=== PATIENT | male | born 1965 | race Hispanic/Latino ===

== ENCOUNTER 2018-06-15 12:25 | Emergency (ER) | payer OTHER ==
--- OUTSIDE RECORDS SUMMARY | 2018-06-15 14:10 | XMS REPORT | Clinical Summary ---
:1965 Author Organization [facility] Address [address] [place] [id number] Care Team Providers Name Role Phone Balaji Chau MD Primary Care Provider Allergies No Known Allergies Medications Not on file Active Problems Not on file Encounters Date Type Specialty Care Team Description 08/20/2017 Hospital Encounter Radiology William Lombardo Migraine-cluster MD Misael headache syndrome 08/14/2017 Lab Lab William Lombardo Other specified MD Misael abnormal findings of blood chemistry (Primary Dx) 08/14/2017 Transcribe Orders Access William Lombardo Migraine-cluster MD Misael headache syndrome (Primary Dx) 08/03/2017 Hospital Encounter Radiology William Lombardo Shortness of breath MD Misael 08/03/2017 Hospital Encounter Procedural William Lombardo Shortness of breath Cardiology MD Misael 07/24/2017 Transcribe Orders Access William Lombardo Shortness of breath MD Misael (Primary Dx) 07/23/2017 Hospital Encounter Radiology William Lombardo Bronchiectasis without complication; MD Misael Idiopathic fibrosing alveolitis, subacute form 07/23/2017 Transcribe Orders William Garcia Bronchiectasis without complication (Primary Dx); MD Misael Idiopathic fibrosing alveolitis, subacute form after 06/14/2017 Social History Tobacco Use Types Packs/Day Years Used Date Never Assessed Sex Assigned at Date Recorded Not on file Job Start Date Occupation Industry Not on file Not on file Not on file Travel History Travel Start Travel End No recent travel history available. Last Filed Vital Signs Vital Sign Reading Time Taken Blood Pressure - - Pulse - - Temperature - - Respiratory Rate - - Oxygen Saturation - - Inhaled Oxygen Concentration - - Weight 72.6 kg (160 lb) 08/20/2017 9:58 AM PUBLIC HEALTH ASSISTANT Height 162.6 cm (5' 4") 08/20/2017 9:58 AM PUBLIC HEALTH ASSISTANT Body Mass Index 27.46 08/20/2017 9:58 AM PUBLIC HEALTH ASSISTANT Plan of Treatment Health Maintenance Due Date Last Done Comments MMR VACCINES (1 of 1 - Standard 09/16/1964 series) VARICELLA VACCINES (1 of 2 - 2-dose 09/16/1976 adolescent series) COLON CANCER SCREENING 09/16/2013 SHINGRIX VACCINE (1 of 2) 09/16/2013 INFLUENZA VACCINE 02/17/2018 HEPATITIS B VACCINES Aged Out No longer eligible based on patient's age to complete this topic IPV VACCINES Aged Out No longer eligible based on patient's age to complete this topic MENINGOCOCCAL VACCINE Aged Out No longer eligible based on patient's age to complete this topic Procedures Procedure Name Priority Date/Time Associated Diagnosis Comments MRI BRAIN W WO Routine 08/20/2017 10:33 Migraine-cluster Results for this CONTRAST AM PUBLIC HEALTH ASSISTANT headache syndrome procedure are in the results section. ZZESTIMATED GFR Routine 08/14/2017 11:53 Results for this AM PUBLIC HEALTH ASSISTANT procedure are in the results section. BASIC METABOLIC PANEL Routine 08/14/2017 11:53 Other specified Results for this AM PUBLIC HEALTH ASSISTANT abnormal findings of procedure are in blood chemistry the results section. NM LUNG VENTILATION Routine 08/03/2017 9:45 Shortness of breath Results for this PERFUSION AM PUBLIC HEALTH ASSISTANT procedure are in the results section. ECHOCARDIOGRAM 2D Routine 08/03/2017 9:15 Shortness of breath Results for this COMPLETE W MMODE AM PUBLIC HEALTH ASSISTANT procedure are in SPECTRAL COLOR DOPPLER the results (29840) section. CT CHEST WO CONTRAST Routine 07/23/2017 2:17 Bronchiectasis Results for this PM PUBLIC HEALTH ASSISTANT without complication procedure are in Idiopathic fibrosing the results alveolitis, subacute section. form after 06/14/2017 Results MRI Brain W Wo Contrast (08/20/2017 10:33 AM PUBLIC HEALTH ASSISTANT) Narrative Performed At EXAMINATION:MRI BRAIN W WO CONTRAST [facility] CLINICAL HISTORY:G44.009 Cluster headache syndromeunspecifiednot intractable, AREVALO COMPARISON:None. TECHNIQUE: Multiplanar MRI imaging with and without IV Gadolinium was performed. FINDINGS: There are scattered punctate periventricular and subcortical white matter nonspecific T2 hyperintensities in the frontoparietal region bilaterally likely related to microvascular chronic changes . There is an encephalomalacia with gliosis related to an old insult in the frontal parasagittal supraorbital region likely related to old trauma. There is no evidence of acute infarction, hemorrhage, mass lesion, or midline shift. Ventricles, sulci, and cisterns are age-appropriate in size and configuration. There is no extra-axial fluid collecti on. Flow voids of the major intracranial vessels are intact. The postcontrast images demonstrates no evidence of abnormal brain parenchymal enhancement or leptomeningeal disease. There is a chronic mucoperiosteal infiltrate changes in the maxillary sinuses bilaterally with no air-fluid levels. Bones, orbits, and soft tissues are unremarkable. IMPRESSION: No acute intracranial abnormality. Chronic changes as described. 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 [id number] Procedure Note Interface, Radiology Results - 08/20/2017 3:04 PM PUBLIC HEALTH ASSISTANT EXAMINATION: MRI BRAIN W WO CONTRAST CLINICAL HISTORY: G44.009 Cluster headache syndrome unspecified not intractable, AREVALO COMPARISON: None. TECHNIQUE: Multiplanar MRI imaging with and without IV Gadolinium was performed. FINDINGS: There are scattered punctate periventricular and subcortical white matter nonspecific T2 hyperintensities in the frontoparietal region bilaterally likely related to microvascular chronic changes. There is an encephalomalacia with gliosis related to an old insult in the frontal parasagittal supraorbital region likely related to old trauma. There is no evidence of acute infarction, hemorrhage, mass lesion, or midline shift. Ventricles, sulci, and cisterns are age-appropriate in size and configuration. There is no extra-axial fluid collection. Flow voids of the major intracranial vessels are intact. The postcontrast images demonstrates no evidence of abnormal brain parenchymal enhancement or leptomeningeal disease. There is a chronic mucoperiosteal infiltrate changes in the maxillary sinuses bilaterally with no air-fluid levels. Bones, orbits, and soft tissues are unremarkable. IMPRESSION: No acute intracranial abnormality. Chronic changes as described. 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 [id number] Performing Organization Address City/State/Zipcode Phone Number [facility] [address] [place] [address] Estimated GFR (08/14/2017 11:53 AM PUBLIC HEALTH ASSISTANT) GFR Non Af Amer 78 mL/min/1.73 m2 [facility]OM[facility] GFR Af Amer >90 mL/min/1.73 m2 [facility] DEPART[facility] OF Comment: PATHOLOGY AND [facility] Chronic kidney disease: <60 mL/min/1.73m2 MEDICINE Kidney failure: <15 mL/min/1.73m2 The estimated GFR is calculated from the IDMS-traceable Modification of Diet in Renal Disease Equation. The accuracy of the calculation is poor when the creatinine is normal. Calculated values >90 mL/min/1.73m2 are not reported. This equation has not been validated in children (<18 years), women, the elderly (>70 years), or ethnic groups other than Caucasians and Americans. Specimen Plasma specimen Performing Organization Address City/[facility] Phone Number [facility] OF PATHOLOGY AND [address] [place] [address] [facility] Basic metabolic panel (08/14/2017 11:53 AM PUBLIC HEALTH ASSISTANT) Sodium 142 135 - 148 mEq/L [facility]OM[facility]IC[facility] Potassium 4.4 3.5 - 5.0 mEq/L [facility]OM[facility]IC[facility] Chloride 101 98 - 112 mEq/L [facility]OLOGY [facility] GENOMIC MEDIC[facility] CO2 27 24 - 31 mEq/L [facility]Y [facility] GENOM[facility]IC[facility] Anion gap 14 7 - 15 mEq/L [facility] OF PATHOLOGY Comment: [facility] Starting from October , anion gap calculation no longer incorporates potassium. Please note the change. BUN 18 6 - 20 mg/dL [facility] Creatinine 1.0 0.7 - 1.2 mg/dL [facility]OLOGY [facility] GENOMIC [facility]IC[facility] Glucose 85 65 - 99 mg/dL [facility] PATHOLOGY [facility] GENOMIC [facility]ICINE Calcium 9.6 8.3 - 10.2 mg/dL [facility] OF PATHOLOGY AND GENOMIC [facility] Specimen Plasma specimen Performing Organization Address City/[facility] Centercoid Phone Number [facility] PATHOLOGY AND [address] [place] [address] [facility] Lung Ventilation Perfusion (08/03/2017 9:45 AM PUBLIC HEALTH ASSISTANT) Narrative Performed At CLINICAL HISTORY: R06.02 Shortness of breath, r06.02 [facility] TECHNIQUE: The patient breathed 15-20 mCi of xenon-133 gas through a closed ventilation system while dynamic imaging of the lungs was performed in the posterior and anterior projections. The patient was then injected with 5 mCi of [id number] intravenously, followed by imaging of the lungs in anterior, posterior, and oblique projections. FINDINGS: Mild air trapping in the lung bases on ventilation. Normal perfusion bilaterally. IMPRESSION: Normal perfusion lung scan. [id number] Procedure Note Interface, Radiology Results Incoming - 08/03/2017 10:07 AM PUBLIC HEALTH ASSISTANT CLINICAL HISTORY: R06.02 Shortness of breath, r06.02 TECHNIQUE: The patient breathed 15-20 mCi of xenon-133 gas through a closed ventilation system while dynamic imaging of the lungs was performed in the posterior and anterior projections. The patient was then injected with 5 mCi of [id number] intravenously, followed by imaging of the lungs in anterior, posterior, and oblique projections. FINDINGS: Mild air trapping in the lung bases on ventilation. Normal perfusion bilaterally. IMPRESSION: Normal perfusion lung scan. [id number] Performing Organization Address City/State/Zipcode Phone Number [facility] [address] [place] [address] Echocardiogram complete w contrast and 3D if needed (08/03/2017 9:15 AM PUBLIC HEALTH ASSISTANT) Narrative Performed At [facility] Echocardiography Report [address] [place] [address] Pat.Name:CANDIS SANTOS Pat.ID:[id number] .Date: 08/03/2017 Refer.MD:WILLIAM LOMBARDO MD Exam Time: 8:18:00 AMStudy Type:Routine Echo Height:64inWeight: 160lb BSA: 1.78 m2 DOBAge:1965,51Y Sex: MALEBP: 155/102 HR:80 bpmSonogrphr: KRISTA Amador Pat. Stat.:OutpatientStudy Status:Final Echo Event ID:[id number] Order ID:[id number] Reason for Study:Shortness of breath Procedures:2D Echo, Colorflow Doppler Race:C SUMMARY: LV EF is normal. Estimated EF is 60-64%. RV systolic function is normal. FINDINGS: LV: LV size is normal. LV EF is normal. Overall wall motion is normal.Estimated EF is 60-64%. RV: RV size is normal. RV systolic function is normal. LA: LA size is normal. RA: RA size is normal. AO: Aortic root diameter is normal. MARLEN: No pericardial effusion. AV: No structural AV abnormalities noted. MV: No structural MV abnormalities noted. PV: No structural PV abnormalities noted. TV: No structural TV abnormalities noted. Goldstein: Normal diastolic function. Other:Insufficient TR jet to estimate PA systolic pressure. MEASUREMENTS: 2D Parasternal Long [place] LVOT 2.1 cmLA Ds 3.2 cm LVIDd4.1 cmIndex 2.3 cm/m Ao An2.2 cm LVIDs2.3 cmAo Rtd 2.9 cm Index1.6 cm/m LV%fs 43.9 % LV Ppnf883.1 g(122-174) IVSd 1 cmRWT 0.5 LVPWd1 cm LA Sng Plane LA Area 13.9 cm2(8.8-23.4) LA Vol32.5 ml Index18.3 ml/m LA LngAx 4.9 cm Signed 08/04/2017 01:27 PM Camilla Travis M.D. Procedure Note Interface, Radiology Results In - 08/04/2017 1:28 PM PUBLIC HEALTH ASSISTANT Echocardiography Report [id number] [address] Pat.Name: CANDIS SANTOS.ID: [id number] .Date: 08/03/2017 Refer.MD: WILLIAM LOMBARDO MD Exam Time: 8:18:00 AM Study Type:Routine Echo Height: 64in Weight: 160lb BSA: 1.78 m2 Age: 2 1965,51Y Sex: MALE BP: 155/102 HR: 80 bpm Sonogrphr: KRISTA Amador Pat. Stat.:Outpatient Study Status:Final Echo Event ID:[id number] Order ID: [id number] Reason for Study:Shortness of breath Procedures:2D Echo, Colorflow Doppler Race: C SUMMARY: LV EF is normal. Estimated EF is 60-64%. RV systolic function is normal. FINDINGS: LV: LV size is normal. LV EF is normal. Overall wall motion is normal. Estimated EF is 60-64%. RV: RV size is normal. RV systolic function is normal. LA: LA size is normal. RA: RA size is normal. AO: Aortic root diameter is normal. MARLEN: No pericardial effusion. AV: No structural AV abnormalities noted. MV: No structural MV abnormalities noted. PV: No structural PV abnormalities noted. TV: No structural TV abnormalities noted. Goldstein: Normal diastolic function. Other: Insufficient TR jet to estimate PA systolic pressure. MEASUREMENTS: 2D Parasternal Long [place] LVOT 2.1 cm LA Ds 3.2 cm LVIDd 4.1 cm Index 2.3 cm/m Ao An 2.2 cm LVIDs 2.3 cm Ao Rtd 2.9 cm Index 1.6 cm/m LV%fs 43.9 % LV Mass 132.1 g (122-174) IVSd 1 cm RWT 0.5 LVPWd 1 cm LA Sng Plane LA Area 13.9 cm2 (8.8-23.4) LA Vol 32.5 ml Index 18.3 ml/m LA LngAx 4.9 cm Signed 08/04/2017 01:27 PM Camilla Travis M.D. Performing Organization Address City/State/Zipcode Phone Number [facility] [address] [place] [address] CT Chest Wo Contrast (07/23/2017 2:17 PM PUBLIC HEALTH ASSISTANT) Narrative Performed At EXAMINATION: [facility] CT CHEST WO CONTRAST CLINICAL HISTORY: J47.9 Bronchiectasisuncomplicated, J84.112 Idiopathic pulmonary fibrosis, j84.112 TECHNIQUE: Multiple axial images of the chest were obtained without intravenous contrast. The lack of intravenous contrast reduces the sensitivity of detecting solid organ disease and evaluating vasculature. Sagittal and coronal computerized reformatted images were also obtained. CT imaging was performed with iterative reconstruction techniques and/or automated exposure control to reduce radiation dose. COMPARISON: None. IMPRESSION: 1.There is a tiny calcified granuloma in the right upper lobe. Lungs are otherwise clear. There is no evidence of interstitial fibrosis. 2.The airways are patent and normal in caliber. 3.There is no pleural or pericardial effusion. 4.No thoracic lymphadenopathy is seen. 5.The heart size is normal. 6.There are couple of tiny bilateral intrarenal nonobstructing calculi and there is a 13 mm cyst in the left kidney. 7.No significant skeletal abnormality is seen. [id number] Procedure Note Interface, Radiology Results Incoming - 07/23/2017 2:34 PM PUBLIC HEALTH ASSISTANT EXAMINATION: CT CHEST WO CONTRAST CLINICAL HISTORY: J47.9 Bronchiectasis uncomplicated, J84.112 Idiopathic pulmonary fibrosis, j84.112 TECHNIQUE: Multiple axial images of the chest were obtained without intravenous contrast. The lack of intravenous contrast reduces the sensitivity of detecting solid organ disease and evaluating vasculature. Sagittal and coronal computerized reformatted images were also obtained. CT imaging was performed with iterative reconstruction techniques and/or automated exposure control to reduce radiation dose. COMPARISON: None. IMPRESSION: 1. There is a tiny calcified granuloma in the right upper lobe. Lungs are otherwise clear. There is no evidence of interstitial fibrosis. 2. The airways are patent and normal in caliber. 3. There is no pleural or pericardial effusion. 4. No thoracic lymphadenopathy is seen. 5. The heart size is normal. 6. There are couple of tiny bilateral intrarenal nonobstructing calculi and there is a 13 mm cyst in the left kidney. 7. No significant skeletal abnormality is seen. [facility]-[id number] Performing Organization Address City/State/Zipcode Phone Number [facility] [address] [place] [address] after 06/14/2017 Advance Directives Patient has advance care planning documents on file. For more information, please contact:[facility] [place] [id number]
--- NOTE | 2018-06-15 15:31 | ER ---
Nurse's Notes [facility] Name: Karli Garcia Age: 52 yrs Sex: Male : 1965 Arrival Date: 06/15/2018 Time: 12:29 Bed 11 Private MD: Balaji Chau E Diagnosis: Low back pain Presentation: 06/15 13:04 Presenting complaint: Patient states: Back pain that started today. States that he has aj1 had back pain for a long time, he has a steroid shot 3 weeks ago, but now the pain is worse than it has been previously. Transition of care: patient was not received from another setting of care. Onset of symptoms was June 15, 2018. Risk Assessment: Do you want to hurt yourself or someone else? Patient reports no desire to harm self or others. Initial Sepsis Screen: Does the patient meet any 2 criteria? No. Patient's initial sepsis screen is negative. Does the patient have a suspected source of infection? No. Patient's initial sepsis screen is negative. Care prior to arrival: None. 13:04 Method Of Arrival: Ambulatory aj 13:04 Acuity: ANTHONY 4 aj1 Triage Assessment: 13:05 General: Appears in no apparent distress. uncomfortable, Behavior is calm, cooperative, aj1 appropriate for age. Pain: Complains of pain in back Pain currently is 10 out of 10 on a pain scale. Neuro: Level of Consciousness is awake, alert, obeys commands. Cardiovascular: Patient's skin is warm and dry. Respiratory: Airway is patent Respiratory effort is even, unlabored, Respiratory pattern is regular, symmetrical. Musculoskeletal: Range of motion: intact in all extremities. Historical: - Allergies: 13:05 No Known Allergies; aj1 - PMHx: 13:05 Hypertension; aj1 - Immunization history:: Flu vaccine status is unknown. - Social history:: Smoking status: unknown. - Ebola Screening: : No symptoms or risks identified at this time. Screenin:51 Abuse screen: Denies threats or abuse. Denies injuries from another. Nutritional mg2 screening: No deficits noted. Tuberculosis screening: No symptoms or risk factors identified. Fall Risk None identified. Assessment: 15:39 Reassessment: No changes from previously documented assessment. Neuro: No deficits mg2 noted. Musculoskeletal: Reports pain in back. Vital Signs: 13:05 BP 144 / 97; Pulse 72; Resp 18; Temp 98.2; Pulse Ox 99% on R/A; Weight 70.31 kg (R); aj1 Height 5 ft. 4 in. (162.56 cm) (R); Pain 10/10; 14:57 BP 159 / 101; Pulse 89; Resp 18; Pulse Ox 100% on R/A; Pain 10/10; mg2 13:05 Body Mass Index 26.61 (70.31 kg, 162.56 cm) aj1 ED Course: 12:29 Patient arrived in ED. sb2 12:29 Balaji Chau MD is Private Physician. sb2 13:05 Triage completed. aj1 13:05 Arm band placed on Patient placed in waiting room, Patient notified of wait time. aj 14:08 Te Matt PA is PHCP. [facility] 14:08 Tee Saez MD is Attending Physician. [facility] 14:51 Ezequiel Smith, KENZIE is Primary Nurse. mg2 14:51 No provider procedures requiring assistance completed. Patient did not have IV access mg2 during this emergency room visit. 15:30 Moody Bernstein MD is Referral Physician. [facility] 15:39 Patient has correct armband on for positive identification. mg2 Administered Medications: No medications were administered Outcome: 15:30 Discharge ordered by MD. [facility] 15:40 Discharged to home ambulatory. mg2 15:40 Condition: stable 15:40 Discharge instructions given to patient, Instructed on discharge instructions, follow up and referral plans. medication usage, Demonstrated understanding of instructions, follow-up care, medications, Prescriptions given X 2. 15:40 Patient left the ED. mg2 Signatures: Tracy Oreilly, RN RN aj1 Te Matt PA PA jmm Billeau, Sheri sb2 Ezequiel Smith, KENZIE RN mg2
--- NOTE | 2018-06-15 15:31 | EDPHYS ---
Physician Documentation [facility] Name: Karli Garcia Age: 52 yrs Sex: Male : 1965 Arrival Date: 06/15/2018 Time: 12:29 Bed 11 Private MD: Balaji Chau E ED Physician Tee Saez HPI: 06/15 15:05 This 52 yrs old Male presents to ER via Ambulatory with complaints of Back jmm Pain. 15:05 The patient presents with pain that is acute, with no known mechanism of injury. The jmm symptoms are located in the thoracic area and lumbar area. Onset: The symptoms/episode began/occurred this morning. The pain does not radiate. Associated signs and symptoms: Pertinent negatives: abdominal pain, dysuria, fever, incontinence, nausea, numbness, urinary retention, weakness. This is a 52 year old male with a history of htn that presents to the ED with lumbar and thoracic back pain beginning this morning. Patient states having a steroid injection in his lumbar spine approx 2 to 3 weeks ago with no pain until today. Patient denies IV drug use, denies incontinence, denies leg weakness, denies urinary retention. . Historical: - Allergies: 13:05 No Known Allergies; aj1 - PMHx: 13:05 Hypertension; aj1 - Immunization history:: Flu vaccine status is unknown. - Social history:: Smoking status: unknown. - Ebola Screening: : No symptoms or risks identified at this time. ROS: 15:05 Constitutional: Negative for fever, chills, and weight loss, Eyes: Negative for injury, jmm pain, redness, and discharge, Cardiovascular: Negative for chest pain, palpitations, and edema, Respiratory: Negative for shortness of breath, cough, wheezing, and pleuritic chest pain. 15:05 Back: Positive for pain with movement. 15:05 Neuro: Negative for gait disturbance, weakness. 15:05 All other systems are negative. Exam: 15:05 Head/Face: atraumatic. Eyes: EOMI, no conjunctival erythema appreciated ENT: Moist jmm Mucus Membranes Neck: Trachea midline, Supple Chest/axilla: Normal chest wall appearance and motion. Cardiovascular: Regular rate and rhythm. No edema appreciated Respiratory: Normal respirations, no respiratory distress appreciated Abdomen/GI: Non distended, soft 15:05 Constitutional: The patient appears in no acute distress, alert, awake. 15:05 Back: paraspinal thoracic back pain is noted on palpation, FROM appreciated. Midline lumbar tenderness is noted, no erythema appreciated, no mass is palpated. 15:05 Neuro: Orientation: is normal, Mentation: is normal, Memory: is normal, Motor: is normal, extensor hallucis longus intact bilaterally, no saddle paresthesias, normal gait appreciated. 15:05 Psych: Behavior/mood is pleasant, cooperative. Vital Signs: 13:05 BP 144 / 97; Pulse 72; Resp 18; Temp 98.2; Pulse Ox 99% on R/A; Weight 70.31 kg (R); aj1 Height 5 ft. 4 in. (162.56 cm) (R); Pain 10/10; 14:57 BP 159 / 101; Pulse 89; Resp 18; Pulse Ox 100% on R/A; Pain 10/10; mg2 13:05 Body Mass Index 26.61 (70.31 kg, 162.56 cm) aj1 MDM: 15:05 Patient medically screened. [facility] 15:29 Data reviewed: vital signs, nurses notes. Counseling: I had a detailed discussion with [facility] the patient and/or guardian regarding: the historical points, exam findings, and any diagnostic results supporting the discharge/admit diagnosis, the need for outpatient follow up, to return to the emergency department if symptoms worsen or persist or if there are any questions or concerns that arise at home. 15:29 Data interpreted: Pulse oximetry: on room air is 100 %. ED course: PE findings are not [facility] concerning for cord compression. Patient is afebrile and non toxic in appearance, i do not suspect spinal abscess. Symptoms may be due to progressively worsening DDD. Patient is scheduled to see neuro surgery on Thursday. Patient is otherwise given return precautions. Patient understood. . Administered Medications: No medications were administered Disposition: 18:31 Co-signature as Attending Physician, Tee Saez MD. rn Disposition: 06/15/18 15:30 Discharged to Home. Impression: Low back pain. - Condition is Stable. - Discharge Instructions: Back Pain, Adult. - Prescriptions for Prednisone 20 mg Oral Tablet - take 3 tablet by ORAL route once daily for 5 days; 15 tablet. orphenadrine citrate 100 mg Oral Tablet Sustained Release - take 1 tablet by ORAL route 2 times per day As needed; 20 tablet. - Medication Reconciliation Form, Thank You Letter, Antibiotic Education, Prescription Opioid Use form. - Follow up: Moody Bernstein MD; When: 2 - 3 days; Reason: Recheck today's complaints, Continuance of care, Re-evaluation by your physician. Signatures: Tracy Oreilly RN RN aj1 Te Matt PA PA jmm Nieto, Roman, MD MD rn GardEzequiel esquivel RN RN mg2 Corrections: (The following items were deleted from the chart) 15:40 15:30 06/15/2018 15:30 Discharged to Home. Impression: Low back pain. Condition is mg2 Stable. Forms are Medication Reconciliation Form, Thank You Letter, Antibiotic Education, Prescription Opioid Use. Follow up: Moody Bernstein; When: 2 - 3 days; Reason: Recheck today's complaints, Continuance of care, Re-evaluation by your physician. reyna
[2018-06-15 15:51] VITALS: TEMP 98.2
[2018-06-15 15:52] VITALS: BP 159/101; O2SAT 100
== END 2018-06-15 15:40 | disposition home or self-care (01) ==
LOC: ER 12:25
DX: M54.5 Low back pain (principal); I10 Essential (primary) hypertension
CPT/HCPCS: 99282

== ENCOUNTER 2021-03-21 10:00 | Emergency (ER) | payer OTHER ==
--- OUTSIDE RECORDS SUMMARY | 2021-03-21 10:04 | XMS REPORT | Continuity of Care Document ---
:1965 Author Organization [facility] t Address [address] [place] [address] [address] [place] [address] Care Team Providers Name Role Phone Ctr, [facility] Primary Care Physician [phone] Randy RODRIGUES B Attending Clinician Doctor Unassigned, Name Attending Clinician Unavailable Payers Payer Name Policy Policy Effective Expiration Source Type Number Date Date MEDICAREMEDICARE PART A & [id number] 2021 [facility] [id number] 2020-Prese 00:00:00 [facility] [phone] [facility] [id number] [address]Medicare VETERANS [id number] 2005 [facility] ADMINISTRATIONVETERANS 00:00:00 Michael lanier Medical [id number] Branch /2005-PresentHMO/PPO/POS Problems Condition Condition Condition Status Onset Resolution Last Treating Co mments Source Name Details Category Date Date Treatment Clinician Date No known No known Disease Unive rs active active ity of problems problems [facility] Allergies, Adverse Reactions, Alerts This patient has no known allergies or adverse reactions. Social History Social Habit Start Date Stop Date Quantity Comments Source Exposure to Yes [facility] SARS-CoV-2 [facility] (event) [place] Tobacco use and 2020-03-18 2020-03-18 Never used Universit y of exposure 00:00:00 00:00:00 [facility] Alcohol intake 2020-03-18 2020-03-18 Current University of 00:00:00 00:00:00 non-drinker of [place] Medi nighat alcohol Branch (finding) Sex Assigned At [birth year] [facility] 00:00:00 00:00:00 Smoking Status Start Date Stop Date Source Never smoker [facility] Unknown if ever smoked [facility] Medications Ordered Filled Start Stop Current Ordering Indication Dosage Frequency Signature Comments Components Source Medication Medication Date Date Medication? Clinician (SIG) Name Name acetaminoph No 650mg 650 mg, U nivers en 8-03-16 Oral, ity of (TYLENOL) 23:15: 22:26 ONCE, 1 [place] tablet 650 00 :00 dose, Sat Medi nighat mg 03/16/21 at Branch 1815, MANUELA albuterol Yes [id number] 2{puff} Inhale 2 Univers 90 8-28 Puffs ity of mcg/actuati 00:00: every 4 [place] as on inhaler 00 (four) Medical hours as Branch needed for Wheezing or Shortness of Breath. benzonatate Yes [id number] 100mg Take 1 Univers 100 mg 8-28 capsule by ity of capsule 00:00: mouth 3 [place] 00 (three) Medical times Branch daily as needed for Cough. dextrometho Yes [id number] 10mL Take 10 mL Univers rphan-guaif 8-28 by mouth ity of enesin 00:00: every 6 [place] 10-100 mg/5 00 (six) Medical mL solution hours as Bran ch needed for Cough. ondansetron Yes [id number] 4mg Take 1 Univers 4 mg 8-28 tablet by ity of disintegrat 00:00: mouth [place] ing tablet 00 every 8 Medica l (eight) Branch hours as needed for Nausea and Vomiting (N/V). traMADol 50 Yes [id number] 50mg Take 1 Univers mg tablet 2-10 tablet by ity o f 00:00: mouth [place] 00 every 6 Medical (six) Branch hours as needed for Pain (scale 7-10). traMADol 50 Yes [id number] 50mg Take 1 Univers mg tablet 2-10 tablet by ity o f 00:00: mouth [place] 00 every 6 Medical (six) Branch hours as needed for Pain (scale 7-10). acetaminoph 2020-0 Yes [id number] 1{tbl} Take 1 Univers en-codeine 1-03 07 tablet by ity of (TYLENOL-CO 00:00: mouth [place] DEINE #3) 00 every 6 Medical 300-30 mg (six) Branch tablet hours as needed (pain unrelieved by Ibuprofen) . ibuprofen 2020-0 Yes [id number] 600mg Take 1 Univers 600 mg 1-03 07 tablet by ity of tablet 00:00: mouth [place] 00 every 6 Medical (six) Branch hours as needed for Pain (scale 1-3). cyclobenzap 2020-0 Yes [id number] 5mg Take 1 Univers rine 5 mg 1-03 07 tablet by ity o f tablet 00:00: mouth 3 [place] 00 (three) Medical times Branch daily as needed for Muscle Spasms. acetaminoph 2020-0 Yes [id number] 1{tbl} Take 1 Univers en-codeine 1-03 07 tablet by ity of (TYLENOL-CO 00:00: mouth [place] DEINE #3) 00 every 6 Medical 300-30 mg (six) Branch tablet hours as needed (pain unrelieved by Ibuprofen) . ibuprofen 2020-0 Yes [id number] 600mg Take 1 Univers 600 mg 1-03 07 tablet by ity of tablet 00:00: mouth [place] 00 every 6 Medical (six) Branch hours as needed for Pain (scale 1-3). cyclobenzap 2020-0 Yes [id number] 5mg Take 1 Univers rine 5 mg 1-03 07 tablet by ity o f tablet 00:00: mouth 3 [place] 00 (three) Medical times Branch daily as needed for Muscle Spasms. lisinopril Yes [id number] 5mg Take 1 U nivers (PRINIVIL) 8-26 tablet by ity of 5 mg tablet 00:00: mouth [place] 00 daily. Medical Branch lisinopril 20190 Yes [id number] 5mg Take 1 U nivers (PRINIVIL) 8-26 tablet by ity of 5 mg tablet 00:00: mouth [place] 00 daily. Medical Branch inhalationa Yes Use as Univ ers l spacing 01-24 directed ity of device 00:00: [place] (BREATHERIT 00 Medical E Branch SPACER-MASK ,ADULT) inhalationa Yes Use as Univ ers l spacing 01-24 directed ity of device 00:00: [place] (BREATHERIT 00 Medical E Branch SPACER-MASK ,ADULT) Vital Signs Vital Name Observation Time Observation Value Comments Source Body temperature 2021-03-17 00:10:31 38.33 Jaqui Univ ersity [facility] Medical [place] Systolic blood 2021-03-17 00:07:12 156 mm[Hg] Univer sity of pressure [place] [facility] [place] Diastolic blood 2021-03-17 00:07:12 89 mm[Hg] Unive rsity of pressure [facility] Heart rate 2021-03-17 00:07:12 81 /min [facility] Respiratory rate 2021-03-17 00:07:12 18 /min [facility] Oxygen saturation in 2021-03-17 00:07:12 98 /min [facility] Arterial blood by [facility] Pulse oximetry Branch Body height 2021-03-16 21:38:[address] [facility] Body weight 2021-03-16 21:38:[address] [facility] BMI 2021-03-16 21:38:00 27.46 kg/m2 [facility] Procedures Procedure Date / Time Performed Performing Clinician Gurdeep guthrie COVID-19 (ID NOW 2021-03-16 21:51:00 Andrea Caicedo [facility] RAPID TESTING) Medical [place] NOTICE OF PRIVACY 2021-03-16 21:38:22 Doctor Unassigned, No Univ [facility] Name Medical [place] CONSENT/REFUSAL FOR 2021-03-16 21:32:43 [facility], [facility] Name Medical [place] TREATMENT Plan of Care Planned Activity Planned Date Details Comments Source Future Scheduled Test COVID-19 VACCINE (1) [facility] [code = COVID-19 VACCINE (1)] Future Scheduled Test COLONOSCOPY SCREENING [facility] [code = COLONOSCOPY SCREENING] Future Scheduled Test SHINGLES VACCINES (#1) [facility] [code = SHINGLES VACCINES (#1)] Future Scheduled Test INFLUENZA VACCINE [code [facility] = INFLUENZA VACCINE] Encounters Start End Encounter Admission Attending Care Care Encounter Source Date/Time Date/Time Type Type Clinicians Facility Department ID 2021-03-16 2021-03-16 Emergency [place], [facility] [id number] Univers 16:47:00 19:11:00 Jose Fuchs [id number] i ty of [place] [id number] [facility] [id number] [facility] 084 Branch 2021-03-16 2021-03-16 Orders Doctor RUSSEL [id number] Univers 00:00:00 00:00:00 Only Unassigned, YOSI [id number] ity of [place] [facility] [id number] [facility] [id number] [facility] 009 Branch Results Test Description Test Time Test Comments Results Result Comments Source COVID-19 (ID NOW RAPID TESTING) 2021-03-16 22:01:20 Test Item Value Reference Range Interpretation Comme nts SARS-CoV-2 Rapid ID NOW (test code = 02935-7) Positive Not Dete cted A CATHERINE (test code = CATHERINE) Lab Interpretation (test code = 32849-5) Abnormal [facility]
[2021-03-21] MEDS ORDERED: ACETAMINOPHEN 500 MG TAB ONE (11:02)
[2021-03-21 11:12] LABS: Absolute Lymphocytes (CBC) 0.3 K/uL (0.7-4.9); Basophils % 0.2 % (0-1.3); Hematocrit 41.6 % (39.6-49.0); Lymphocytes % 4.3 % (15.3-44.8); MPV 7.6 fL (7.6-11.3); RBC Red Blood Cell Count 4.59 M/uL (4.33-5.43)
[2021-03-21 11:13] LABS: Protime INR 1.31
[2021-03-21 11:39] LABS: ALT/SGPT 154 U/L (12-78); AST/SGOT 137 U/L (15-37); Albumin 2.8 g/dL (3.4-5.0); Alkaline Phosphatase 89 U/L (45-117); BUN Blood Urea Nitrogen 9 mg/dL (7-18); Bicarbonate 25 mmol/L (21-32); Bilirubin Direct 0.3 mg/dL (0-0.2); Bilirubin Total 0.7 mg/dL (0.2-1.0); Ferritin 2390.9 ng/mL (26-388); Glucose Level 85 mg/dL (74-106); Lipase 260 U/L (73-393); Potassium 3.6 mmol/L (3.5-5.1); Protein, Total 8.1 g/dL (6.4-8.2); Sodium Level 127 mmol/L (136-145); Troponin (Emerg Dept Use Only) < 0.02 ng/mL (0.0-0.045)
--- NOTE | 2021-03-21 11:48 | RAD REPORT ---
EXAM DESCRIPTION: RAD - Chest Single View - 03/21/2021 11:34 am CLINICAL HISTORY: DYSPNEA COMPARISON: Chest Pa And Lat (2 Views) dated 04/19/2018; Chest Pa And Lat (2 Views) dated 02/18/2018 FINDINGS: Lines: None. Lungs: Moderate patchy bilateral airspace disease. Pleural: No significant pleural effusions or pneumothorax. Cardiac: The heart size is within normal limits. Bones: No acute fractures. ACDF in the cervical spine. Other: IMPRESSION: Moderate patchy bilateral airspace disease concerning for multifocal pneumonia, includin g Covid-19.
--- NOTE | 2021-03-21 12:09 | ER ---
Nurse's Notes [facility] Name: Karli Garcia Age: 55 yrs Sex: Male : 1965 Arrival Date: 03/21/2021 Time: 10:03 Bed DIS13 Private MD: Diagnosis: Coronavirus infection, unspecified;Hypoxia;Pneumonia due to SARS-associated coronavirus Presentation: 03/21 10:24 Chief complaint: Patient states: Covid +, loss of appetite, shortness of breath. jl7 Coronavirus screen: Vaccine status: Patient reports being unvaccinated. Client presents with at least one sign or symptom that may indicate coronavirus-19. Standard/surgical mask placed on the client. Provider contacted for isolation considerations. Client reports previous positive COVID test result. Date of collection: March 16, 2021. Ebola Screen: No symptoms or risks identified at this time. Initial Sepsis Screen: Does the patient meet any 2 criteria? No. Patient's initial sepsis screen is negative. Does the patient have a suspected source of infection? No. Patient's initial sepsis screen is negative. Risk Assessment: Do you want to hurt yourself or someone else? Patient reports no desire to harm self or others. Onset of symptoms was March 09, 2021. 10:24 Method Of Arrival: Ambulatory [facility] 10:24 Acuity: ANTHONY 2 jl7 Triage Assessment: 10:26 General: Appears in no apparent distress. uncomfortable, Behavior is calm, cooperative, jl7 appropriate for age. Pain: Denies pain. Neuro: Level of Consciousness is awake, alert, obeys commands, Oriented to person, place, time, situation. Cardiovascular: Patient's skin is warm and dry. Respiratory: Reports shortness of breath Airway is patent Respiratory effort is even, labored, Respiratory pattern is symmetrical, tachypnea Onset: The symptoms/episode began/occurred gradually, the patient has moderate shortness of breath. Derm: Skin is pink, warm \T\ dry. Historical: - Allergies: 10:26 No Known Allergies; jl7 - Home Meds: 10:26 None [Active]; jl7 - PMHx: 10:26 None; jl7 - PSHx: 10:26 None; jl7 - Immunization history:: Adult Immunizations not up to date, Client reports having NOT received the Covid vaccine. - Social history:: Smoking status: Patient denies any tobacco usage or history of. Screenin:56 Abuse screen: Denies threats or abuse. Nutritional screening: No deficits noted. vg1 Tuberculosis screening: No symptoms or risk factors identified. Fall Risk No fall in past 12 months (0 pts). No secondary diagnosis (0 pts). IV access (20 points). Ambulatory Aid- None/Bed Rest/Nurse Assist (0 pts). Gait- Normal/Bed Rest/Wheelchair (0 pts) Mental Status- Oriented to own ability (0 pts). Total Jackson Fall Scale indicates No Risk (0-24 pts). Assessment: 10:54 General: Appears in no apparent distress. uncomfortable, Behavior is calm, cooperative. vg1 Pain: Complains of pain in body Pain currently is 7 out of 10 on a pain scale. Quality of pain is described as aching. Neuro: Level of Consciousness is awake, alert, obeys commands, Oriented to person, place, time, situation. Cardiovascular: Patient's skin is warm and dry. Rhythm is sinus tachycardia. Respiratory: Reports shortness of breath at rest on exertion cough that is dry, Airway is patent Respiratory effort is even, unlabored, Respiratory pattern is tachypnea Breath sounds are coarse in left posterior lower lobe, right posterior middle lobe and right posterior lower lobe. GI: Patient currently denies diarrhea, nausea, vomiting. : Reports dark yellow urine. EENT: No signs and/or symptoms were reported regarding the EENT system. Derm: Skin is intact, is healthy with good turgor. Musculoskeletal: Circulation, motion, and sensation intact. 12:40 Reassessment: Patient appears in no apparent distress at this time. Patient and/or vg1 family updated on plan of care and expected duration. Pain level reassessed. Patient is alert, oriented x 3, equal unlabored respirations, skin warm/dry/pink. Pt states is 'feeling a little better since I have this oxygen on'. 13:46 Reassessment: Patient appears in no apparent distress at this time. Patient and/or vg1 family updated on plan of care and expected duration. Pain level reassessed. Patient is alert, oriented x 3, equal unlabored respirations, skin warm/dry/pink. Respiratory: Airway is patent Respiratory effort is even, unlabored, Respiratory pattern is tachypnea. 15:57 Reassessment: Patient appears in no apparent distress at this time. Patient and/or vg1 family updated on plan of care and expected duration. Pain level reassessed. Patient is alert, oriented x 3, equal unlabored respirations, skin warm/dry/pink. Patient states feeling better. Vital Signs: 10:24 BP 143 / 86; Pulse 103; Resp 23; Temp 99.2; Pulse Ox 86% on R/A; jl7 10:32 Temp 102.5(O); ss 10:56 BP 125 / 90; Pulse 100; Resp 32; Pulse Ox 98% on 3 lpm NC; vg1 12:30 Temp 98.8(O); vg1 12:40 BP 112 / 69; Pulse 80; Resp 24; Temp 98.8; Pulse Ox 98% on 3 lpm NC; vg1 13:30 BP 106 / 75; Pulse 75; Resp 24; Pulse Ox 99% on 3 lpm NC; vg1 15:57 BP 103 / 73; Pulse 82; Resp 24; Pulse Ox 98% on 3 lpm NC; vg1 ED Course: 10:03 Patient arrived in ED. rg4 10:26 Triage completed. jl7 10:26 Arm band placed on right wrist. jl7 10:34 [facility] Prado [facility]C [facility] kb 10:34 Jimmie Ye MD is Attending Physician. kb 10:36 Christine Miranda, KENZIE is Primary Nurse. vg1 10:56 Patient has correct armband on for positive identification. Bed in low position. Call vg1 light in reach. Side rails up X 1. 11:00 Inserted saline lock: 20 gauge in left antecubital area, using aseptic technique. Blood ds4 collected. 11:35 CXR XRAY In Process Unspecified. EDMS 12:08 Flynn Saez MD is Hospitalizing Provider. kb 12:18 CT Chest For PE Angio In Process Unspecified. EDMS 14:56 No provider procedures requiring assistance completed. Patient transferred, IV remains vg1 in place. Administered Medications: 10:41 Drug: Tylenol 1000 mg Route: PO; vg1 12:30 Follow up: Temp 98.8 Oral; Response: No adverse reaction; Temperature is decreased vg1 12:38 Drug: SOLU-Medrol (methylPrednisoLONE) 125 mg Route: IVP; Site: left antecubital; vg1 13:30 Follow up: Response: No adverse reaction vg1 13:30 Drug: NS 0.9% 1000 ml Route: IV; Rate: 1000 ml; Site: left antecubital; vg1 15:01 Follow up: IV Status: Completed infusion; IV Intake: 1000ml vg1 Intake: 15:01 IV: 1000ml; Total: 1000ml. vg1 Outcome: 12:08 Decision to Hospitalize by Provider. kb 13:21 ER care complete, transfer ordered by MD. kb 14:56 Transferred by ground EMS to [facility]. vg1 14:56 Condition: stable 14:56 Instructed on the need for transfer. 15:58 Patient left the ED. vg1 Signatures: Dispatcher [employer] EDAlexia Early, JEREMIAH CONE CLEANER-Naya Ta RN RN Kashmir Camilo ds4 Joslyn Miranda4 Alison Perkins RN RN Christine Yoder RN RN vg1 Corrections: (The following items were deleted from the chart) 10:27 10:26 PMHx: Hypertension; darlin saeed 12:41 12:40 Reassessment: Patient appears in no apparent distress at this time. No changes vg1 from previously documented assessment. Patient and/or family updated on plan of care and expected duration. Pain level reassessed. Patient is alert, oriented x 3, equal unlabored respirations, skin warm/dry/pink. vg1
--- NOTE | 2021-03-21 12:09 | EDPHYS ---
Physician Documentation [facility] Name: Karli Garcia Age: 55 yrs Sex: Male : 1965 Arrival Date: 03/21/2021 Time: 10:03 Bed DIS13 Private MD: ED Physician Jimmie Ye HPI: 03/21 13:25 This 55 yrs old Male presents to ER via Ambulatory with complaints of kb Breathing Difficulty, Decreased Appetite, Covid+. 13:25 The patient or guardian reports cough, that is intermittent, described as mild, kb difficulty breathing, flu symptoms, low-grade fever, myalgias. Onset: The symptoms/episode began/occurred 6 day(s) ago. Severity of symptoms: At their worst the symptoms were moderate, in the emergency department the symptoms are unchanged. Modifying factors: The symptoms are alleviated by nothing, the symptoms are aggravated by nothing. Associated signs and symptoms: Pertinent positives: fever, Pertinent negatives: chest pain, diarrhea, ear ache, nausea, rhinorrhea, sore throat, vomiting. The patient has not experienced similar symptoms in the past. The patient has not recently seen a physician. Pt reports diagnosed with COVID on 03/16/21. Reports shortness of breath has increased and he cannot tolerate po intake . Historical: - Allergies: 10:26 No Known Allergies; jl7 - Home Meds: 10:26 None [Active]; jl7 - PMHx: 10:26 None; jl7 - PSHx: 10:26 None; jl7 - Immunization history:: Adult Immunizations not up to date, Client reports having NOT received the Covid vaccine. - Social history:: Smoking status: Patient denies any tobacco usage or history of. ROS: 13:25 Neuro: Negative for headache, weakness, numbness, tingling, and seizure. kb 13:25 Constitutional: Positive for body aches, chills, fatigue, fever, malaise, poor PO intake. 13:25 Respiratory: Positive for cough, shortness of breath. 13:25 All other systems are negative. Exam: 11:08 ECG was reviewed by the Attending Physician. kb 13:24 Head/Face: Normocephalic, atraumatic. ENT: Moist Mucous membranes Cardiovascular: kb Regular rate and rhythm with a normal S1 and S2. No gallops, murmurs, or rubs. No pulse deficits. Abdomen/GI: Soft, non-tender. No distention Skin: Warm, dry with normal turgor. Normal color. MS/ Extremity: Pulses equal, no cyanosis. Neurovascular intact. Full, normal range of motion. Neuro: Awake and alert, GCS 15, oriented to person, place, time, and situation. Moves all extremities. Normal gait. Psych: Awake, alert, with orientation to person, place and time. Behavior, mood, and affect are within normal limits. 13:24 Constitutional: The patient appears alert, awake, uncomfortable. 13:24 Respiratory: mild respiratory distress is noted, Respirations: labored breathing, that is mild, Breath sounds: are clear throughout. Vital Signs: 10:24 BP 143 / 86; Pulse 103; Resp 23; Temp 99.2; Pulse Ox 86% on R/A; jl7 10:32 Temp 102.5(O); ss 10:56 BP 125 / 90; Pulse 100; Resp 32; Pulse Ox 98% on 3 lpm NC; vg1 12:30 Temp 98.8(O); vg1 12:40 BP 112 / 69; Pulse 80; Resp 24; Temp 98.8; Pulse Ox 98% on 3 lpm NC; vg1 13:30 BP 106 / 75; Pulse 75; Resp 24; Pulse Ox 99% on 3 lpm NC; vg1 15:57 BP 103 / 73; Pulse 82; Resp 24; Pulse Ox 98% on 3 lpm NC; vg1 MDM: 10:34 Patient medically screened. kb 12:06 Data reviewed: vital signs, nurses notes. Data interpreted: Pulse oximetry: on room air kb is 86 %. Interpretation: hypoxia. Counseling: I had a detailed discussion with the patient and/or guardian regarding: the historical points, exam findings, and any diagnostic results supporting the discharge/admit diagnosis, lab results, radiology results, the need for further work-up and treatment in the hospital. Physician consultation: Jasbir ARIZMENDI was contacted at 12:06, regarding admission, patient's condition. 12:26 ED course: Hospitalist requests transfer due to lack of COVID beds. . kb 13:20 ED course: Pt accepted to [facility] by Dr Crouch. abbie 03/21 10:36 Order name: RUSS leiva 03/21 10:36 Order name: Blood Culture Adult (2) kb 03/21 10:36 Order name: C-Reactive Protein kb 03/21 10:36 Order name: CBC with Diff kb 03/21 10:36 Order name: D-Dimer kb 03/21 10:36 Order name: Ferritin; Complete Time: 11:41 kb 03/21 10:36 Order name: LFT's; Complete Time: 11:41 kb 03/21 10:36 Order name: Lactate; Complete Time: 11:29 kb 03/21 10:36 Order name: Lipase; Complete Time: 11:41 kb 03/21 10:36 Order name: PT-INR; Complete Time: 11:18 kb 03/21 10:36 Order name: Procalcitonin; Complete Time: 11:44 kb 03/21 10:36 Order name: Ptt, Activated; Complete Time: 11:18 kb 03/21 10:36 Order name: Troponin (emerg Dept Use Only); Complete Time: 11:41 kb 03/21 10:36 Order name: Basic Metabolic Panel; Complete Time: 11:41 EDMS 03/21 10:36 Order name: CXR XRAY; Complete Time: 11:54 kb 03/21 10:36 Order name: EKG; Complete Time: 10:37 kb 03/21 10:36 Order name: Cardiac monitoring; Complete Time: 10:54 kb 03/21 10:36 Order name: Droplet/Contact Precautions; Complete Time: 10:37 kb 03/21 10:36 Order name: EKG - Nurse/Tech; Complete Time: 10:54 kb 03/21 10:36 Order name: IV Start; Complete Time: 10:54 kb 03/21 10:36 Order name: Labs collected and sent; Complete Time: 10:54 kb 03/21 10:36 Order name: Blood Culture EDMS 03/21 10:36 Order name: C-Reactive Protein; Complete Time: 11:41 EDMS 03/21 10:36 Order name: CBC with Automated Diff; Complete Time: 12:35 EDMS 03/21 10:36 Order name: D-Dimer; Complete Time: 11:18 EDMS 03/21 11:17 Order name: CBC Smear Scan; Complete Time: 12:35 EDMS 03/21 11:18 Order name: CT Chest For PE Angio; Complete Time: 12:35 kb 03/21 10:36 Order name: O2 Per Protocol; Complete Time: 10:37 kb 03/21 10:36 Order name: O2 Sat Monitoring; Complete Time: 10:37 kb EC:08 Rate is 101 beats/min. Rhythm is regular. QRS [place] is Normal. VA interval is normal at kb 142 msec. QRS interval is normal at 82 msec. QT interval is normal at 330 msec. Administered Medications: 10:41 Drug: Tylenol 1000 mg Route: PO; vg1 12:30 Follow up: Temp 98.8 Oral; Response: No adverse reaction; Temperature is decreased vg1 12:38 Drug: SOLU-Medrol (methylPrednisoLONE) 125 mg Route: IVP; Site: left antecubital; vg1 13:30 Follow up: Response: No adverse reaction vg1 13:30 Drug: NS 0.9% 1000 ml Route: IV; Rate: 1000 ml; Site: left antecubital; vg1 15:01 Follow up: IV Status: Completed infusion; IV Intake: 1000ml vg1 Disposition: 03/22 08:21 Co-signature as Attending Physician, Jimmie Ye MD I agree with the assessment and norberto plan of care. Disposition Summary: 03/21/21 13:21 Transfer Ordered Transfer Location: [facility] kb Reason: Higher level of care kb Condition: Stable(03/21/21 13:21) kb Problem: new(03/21/21 13:21) kb Symptoms: are unchanged(03/21/21 13:21) kb Accepting Physician: Willa(03/21/21 15:58) vg1 Diagnosis - Coronavirus infection, unspecified(03/21/21 13:21) kb - Hypoxia kb - Pneumonia due to SARS-associated coronavirus kb Forms: - Medication Reconciliation Form kb - SBAR form kb Signatures: Dispatcher [employer] Alexia Moore, JEREMIAH RODRIGUES-Jimmie Mcmillan MD MD cha Leal, Jahala RN RN [email or web address] Christine Miranda RN RN vg1 Corrections: (The following items were deleted from the chart) 03/21 10:27 10:26 PMHx: Hypertension; darlin saeed 12:26 12:08 Inpatient Admission kb kb 12:26 12:08 Flynn Saez kb kb 12:26 12:08 Telemetry/MedSurg (Inpatient) kb kb 12:08 Stable kb kb 12:08 new kb kb 12:08 are unchanged kb kb 12:08 Standard kb kb 12:08 kb kb 12:08 Coronavirus infection, unspecified kb kb 12:08 Hypoxia kb kb 12:08 Viral pneumonia, unspecified kb kb 15:58 13:21 Willa kb vg1
--- NOTE | 2021-03-21 12:29 | RAD REPORT ---
EXAM DESCRIPTION: CT - Chest For Pe Angio - 03/21/2021 12:19 pm CLINICAL HISTORY: DYSPNEA COMPARISON: Thorax Wo Con dated 04/19/2018 FINDINGS: Chest Wall: No suspicious thyroid nodules or pathologic lymphadenopathy. Lungs: Moderate ill-defined and patchy airspace disease bilaterally. Pleura: No significant effusions or pneumothorax. Mediastinum/tomasa: No pathologic lymphadenopathy. Pulmonary arteries/Aorta: No filling defect identified. No aortic aneurysm. Limited evaluation of the segmental and subsegmental pulmonary arteries due to motion. Heart: No significant pericardial effusion. Normal heart size. Upper abdomen: No acute abnormality. Hepatic steatosis. Bones: No acute abnormality. IMPRESSION: Negative for pulmonary embolism. Moderate bilateral airspace disease concerning for mult ifocal pneumonia, including Covid-19.
[2021-03-21 12:32] LABS: Blood Morphology Comment NOT SEEN (NOT SEEN); Platelet Estimate ADEQ; White Blood Cell Scan OK (OK)
[2021-03-21] MEDS ORDERED: METHYLPREDNISOLONE 125 MG INJ ONE (12:55)
[2021-03-21] MEDS ORDERED: NA CHLORIDE 0.9% 1,000 ML ONE (13:46)
[2021-03-21 16:09] VITALS: TEMP 98.8
[2021-03-21 16:13] VITALS: BP 103/73; O2SAT 98
== END 2021-03-21 15:58 | disposition short-term general hospital (02) ==
LOC: ER 10:00
DX: U07.1 COVID-19 (principal); J12.82 Pneumonia due to coronavirus disease 2019
CPT/HCPCS: 96361; 93005; 87040 ×2; 85025; 80048; 36415; 85610; 85379; 80076; 83605; 85730; 84484; 82728; 83690; 84145; 86140; 71275; 71045; 96374; 99285; Q9967; J7030; J2930

== ENCOUNTER 2021-08-05 12:09 | Emergency (ER) | payer OTHER ==
--- OUTSIDE RECORDS SUMMARY | 2021-08-05 12:16 | XMS REPORT | Continuity of Care Document ---
:[address] [facility] t Address [address] [place] [address] [address] [place] [address] Care Team Providers Name Role Phone Kandi Decker MD Primary Care Physician Nayely BROWN Attending Clinician Unavailable Randy RODRIGUES B Attending Clinician Doctor Unassigned, Name Attending Clinician Unavailable Colt RODRIGUES Attending Clinician Rimma Gold APN Attending Clinician Rimma GOLD Attending Clinician Unavailable Macy RODRIGUES Dorinda Attending Clinician Shon SANTOS, R Attending Clinician SHON, R Attending Clinician Unavailable Juan Daniel BEAUCHAMP, K.H. Attending Clinician Camila GONZALES Attending Clinician Therapist, Respiratory Attending Clinician Unavailable Matti Mcguire Attending Clinician Nayely BROWN Admitting Clinician Unavailable Rimma GOLD Admitting Clinician Unavailable Payers Payer Name Policy Type Policy Number Effective Date Expiration Date Eric GARCIA [id number] 2005 ADMINISTRATION 00:00:00 MEDICARE PART A [id number] 2004 00:00:00 OUT [place] STATE [place] [id number] 2021 00:00:00 Problems Condition Condition Condition Status Onset Resolution Last Treating Co mments Source Name Details Category Date Date Treatment Clinician Date No known No known Disease Unive rs active active ity of problems problems [facility] Allergies, Adverse Reactions, Alerts Allergy Allergy Status Severity Reaction(s) Onset Inactive Treating Comm ents Source Name Type Date Date Clinician NO KNOWN Allergy Active [facility] NO KNOWN Drug Active Univers ALLERGIE Class ity of S [facility] Social History Social Habit Start Date Stop Date Quantity Comments Source Exposure to Yes University SARS-CoV-2 [facility] (event) Branch Tobacco use and 2020-03-18 2020-03-18 Never used Universit y of exposure 00:00:00 00:00:00 [facility] Alcohol intake 2020-03-18 2020-03-18 Current [facility] 00:00:00 00:00:00 non-drinker of [facility] alcohol Branch (finding) Sex Ass[birth year] [facility] 00:00:00 00:00:00 Smoking Status Start Date Stop Date Source Never smoker [facility] Unknown if ever smoked [facility] Medications Ordered Filled Start Stop Current Ordering Indication Dosage Frequency Signature Comments Components Source Medication Medication Date Date Medication? Clinician (SIG) Name Name acetaminoph 2020- No 650mg 650 mg, U nivers en 03-16 Oral, ity of (TYLENOL) 23:15: 22:26 [place], [place] 650 00 :00 dose, Sat Medi nighat mg 03/16/21 at Branch 1815, [place] acetaminoph 2020- No 650mg 650 mg, U nivers en 03-16 Oral, ity of (TYLENOL) 23:15: 22:26 [place]CE, [place] 650 00 :00 dose, Sat Medi nighat mg 03/16/21 at Branch 1815, [place] albuterol Yes [id number] 2{puff} Inhale 2 Univers 90 8-28 Puffs ity of mcg/actuati 00:00: every 4 [place] on inhaler 00 (four) Medical hours as Branch needed for Wheezing or Shortness of Breath. benzonatate Yes [id number] 100mg Take 1 Univers 100 mg 8-28 capsule by ity of capsule 00:00: mouth 3 [place] 00 (three) Medical times Branch daily as needed for Cough. dextrometho Yes [id number] 10mL Take 10 mL Univers rphan-guaif 8-28 by mouth ity of enesin 00:00: every 6 [place] 10-100 mg/5 00 (six) Medical mL solution hours as Bran ch needed for Cough. ondansetron Yes [id number] 4mg Take 1 Univers 4 mg 8-28 tablet by ity of disintegrat 00:00: mouth [place] ing tablet 00 every 8 Medica l (eight) Branch hours as needed for Nausea and Vomiting (N/V). albuterol Yes [id number] 2{puff} Inhale 2 Univers 90 8-28 Puffs ity of mcg/actuati 00:00: every 4 [place] on inhaler 00 (four) Medical hours as Branch needed for Wheezing or Shortness of Breath. benzonatate Yes [id number] 100mg Take 1 Univers 100 mg 8-28 capsule by ity of capsule 00:00: mouth 3 [place] 00 (three) Medical times Branch daily as needed for Cough. dextrometho Yes [id number] 10mL Take 10 mL Univers rphan-guaif 8-28 by mouth ity of enesin 00:00: every 6 [place] 10-100 mg/5 00 (six) Medical mL solution hours as Bran ch needed for Cough. ondansetron Yes [id number] 4mg Take 1 Univers 4 mg 8-28 tablet by ity of disintegrat 00:00: mouth [place] ing tablet 00 every 8 Medica l (eight) Branch hours as needed for Nausea and Vomiting (N/V). aspirin 2019- No 324mg 324 mg, Unive rs chewable 01-11- Oral, ity of tablet 324 21:30: 20:46 ONCE, 1 [place] mg 00 :00 dose, [facility] Medical 01/12/20 at Branch 1630, [place] traMADol 50 2019-0 2020- No [id number] 50mg Take 1 Univers mg tablet 6- 06-14 tablet by ity of 00:00: 04:59 mouth [place] 00 :00 every 6 Medical (six) Branch hours as needed for Pain (scale 7-10) for up to 3 days. traMADol 50 2020-0 Yes [id number] 50mg Take 1 Univers mg tablet 2-10 tablet by ity o f 00:00: mouth [place] 00 every 6 Medical (six) Branch hours as needed for Pain (scale 7-10). traMADol 50 2020-0 Yes [id number] 50mg Take 1 Univers mg tablet 2-10 tablet by ity o f 00:00: mouth [place] 00 every 6 Medical (six) Branch hours as needed for Pain (scale 7-10). traMADol 50 2020-0 Yes [id number] 50mg Take 1 Univers mg tablet 2-10 tablet by ity o f 00:00: mouth [place] 00 every 6 Medical (six) Branch hours as needed for Pain (scale 7-10). traMADol 50 2020-0 Yes [id number] 50mg Take 1 Univers mg tablet 2-10 tablet by ity o f 00:00: mouth [place] 00 every 6 Medical (six) Branch hours as needed for Pain (scale 7-10). traMADol 50 2020-0 Yes [id number] 50mg Take 1 Univers mg tablet 2-10 tablet by ity o f 00:00: mouth [place] 00 every 6 Medical (six) Branch hours as needed for Pain (scale 7-10). traMADol 50 2020-0 Yes [id number] 50mg Take 1 Univers mg tablet 2-10 tablet by ity o f 00:00: mouth [place] 00 every 6 Medical (six) Branch hours as needed for Pain (scale 7-10). traMADol 50 2020-0 Yes [id number] 50mg Take 1 Univers mg tablet 2-10 tablet by ity o f 00:00: mouth [place] 00 every 6 Medical (six) Branch hours as needed for Pain (scale 7-10). traMADol 50 2020-0 Yes [id number] 50mg Take 1 Univers mg tablet 2-10 tablet by ity o f 00:00: mouth [place] 00 every 6 Medical (six) Branch hours as needed for Pain (scale 7-10). traMADol 50 2020-0 Yes [id number] 50mg Take 1 Univers mg tablet 2-10 tablet by ity o f 00:00: mouth [place] 00 every 6 Medical (six) Branch hours as needed for Pain (scale 7-10). traMADol 50 2020-0 Yes [id number] 50mg Take 1 Univers mg tablet 2-10 tablet by ity o f 00:00: mouth [place] 00 every 6 Medical (six) Branch hours as needed for Pain (scale 7-10). traMADol 50 2020-0 Yes [id number] 50mg Take 1 Univers mg tablet 2-10 tablet by ity o f 00:00: mouth [place] 00 every 6 Medical (six) Branch hours as needed for Pain (scale 7-10). acetaminoph 2020-0 Yes [id number] 1{tbl} Take 1 Univers en-codeine 1-03 07 tablet by ity of (TYLENOL-CO 00:00: mouth [place] DEINE #3) 00 every 6 Medical 300-30 mg (six) Branch tablet hours as needed (pain unrelieved by Ibuprofen) . ibuprofen 2020-0 Yes [id number] 600mg Take 1 Univers 600 mg 1-03 07 tablet by ity of tablet 00:00: mouth [place] 00 every 6 Medical (six) Branch hours as needed for Pain (scale 1-3). cyclobenzap 2020-0 Yes [id number] 5mg Take 1 Univers rine 5 mg 1-03 07 tablet by ity o f tablet 00:00: mouth 3 [place] 00 (three) Medical times Branch daily as needed for Muscle Spasms. acetaminoph 2020-0 Yes [id number] 1{tbl} Take 1 Univers en-codeine 1-03 07 tablet by ity of (TYLENOL-CO 00:00: mouth [place] DEINE #3) 00 every 6 Medical 300-30 mg (six) Branch tablet hours as needed (pain unrelieved by Ibuprofen) . ibuprofen 2020-0 Yes [id number] 600mg Take 1 Univers 600 mg 1-03 07 tablet by ity of tablet 00:00: mouth [place] 00 every 6 Medical (six) Branch hours as needed for Pain (scale 1-3). cyclobenzap 2020-0 Yes [id number] 5mg Take 1 Univers rine 5 mg 1-03 07 tablet by ity o f tablet 00:00: mouth 3 [place] 00 (three) Medical times Branch daily as needed for Muscle Spasms. acetaminoph 2020-0 Yes [id number] 1{tbl} Take 1 Univers en-codeine 1-03 07 tablet by ity of (TYLENOL-CO 00:00: mouth [place] DEINE #3) 00 every 6 Medical 300-30 mg (six) Branch tablet hours as needed (pain unrelieved by Ibuprofen) . ibuprofen 2020-0 Yes [id number] 600mg Take 1 Univers 600 mg 1-03 07 tablet by ity of tablet 00:00: mouth [place] 00 every 6 Medical (six) Branch hours as needed for Pain (scale 1-3). cyclobenzap 2020-0 Yes [id number] 5mg Take 1 Univers rine 5 mg 1-03 07 tablet by ity o f tablet 00:00: mouth 3 [place] 00 (three) Medical times Branch daily as needed for Muscle Spasms. acetaminoph 2020-0 Yes [id number] 1{tbl} Take 1 Univers en-codeine 1-03 07 tablet by ity of (TYLENOL-CO 00:00: mouth [place] DEINE #3) 00 every 6 Medical 300-30 mg (six) Branch tablet hours as needed (pain unrelieved by Ibuprofen) . ibuprofen 2020-0 Yes [id number] 600mg Take 1 Univers 600 mg 1-03 07 tablet by ity of tablet 00:00: mouth [place] 00 every 6 Medical (six) Branch hours as needed for Pain (scale 1-3). cyclobenzap 2020-0 Yes [id number] 5mg Take 1 Univers rine 5 mg 1-03 07 tablet by ity o f tablet 00:00: mouth 3 [place] 00 (three) Medical times Branch daily as needed for Muscle Spasms. acetaminoph 2020-0 Yes [id number] 1{tbl} Take 1 Univers en-codeine 1-03 07 tablet by ity of (TYLENOL-CO 00:00: mouth [place] DEINE #3) 00 every 6 Medical 300-30 mg (six) Branch tablet hours as needed (pain unrelieved by Ibuprofen) . ibuprofen 2020-0 Yes [id number] 600mg Take 1 Univers 600 mg 1-03 07 tablet by ity of tablet 00:00: mouth [place] 00 every 6 Medical (six) Branch hours as needed for Pain (scale 1-3). cyclobenzap 2020-0 Yes [id number] 5mg Take 1 Univers rine 5 mg 1-03 07 tablet by ity o f tablet 00:00: mouth 3 [place] 00 (three) Medical times Branch daily as needed for Muscle Spasms. acetaminoph 2020-0 Yes [id number] 1{tbl} Take 1 Univers en-codeine 1-03 07 tablet by ity of (TYLENOL-CO 00:00: mouth [place] DEINE #3) 00 every 6 Medical 300-30 mg (six) Branch tablet hours as needed (pain unrelieved by Ibuprofen) . ibuprofen 2020-0 Yes [id number] 600mg Take 1 Univers 600 mg 1-03 07 tablet by ity of tablet 00:00: mouth [place] 00 every 6 Medical (six) Branch hours as needed for Pain (scale 1-3). cyclobenzap 2020-0 Yes [id number] 5mg Take 1 Univers rine 5 mg 1-03 07 tablet by ity o f tablet 00:00: mouth 3 [place] 00 (three) Medical times Branch daily as needed for Muscle Spasms. acetaminoph 2020-0 Yes [id number] 1{tbl} Take 1 Univers en-codeine 1-03 07 tablet by ity of (TYLENOL-CO 00:00: mouth [place] DEINE #3) 00 every 6 Medical 300-30 mg (six) Branch tablet hours as needed (pain unrelieved by Ibuprofen) . ibuprofen 2020-0 Yes [id number] 600mg Take 1 Univers 600 mg 1-03 07 tablet by ity of tablet 00:00: mouth [place] 00 every 6 Medical (six) Branch hours as needed for Pain (scale 1-3). cyclobenzap 2020-0 Yes [id number] 5mg Take 1 Univers rine 5 mg 1-03 07 tablet by ity o f tablet 00:00: mouth 3 [place] 00 (three) Medical times Branch daily as needed for Muscle Spasms. acetaminoph 2020-0 Yes [id number] 1{tbl} Take 1 Univers en-codeine 1-03 07 tablet by ity of (TYLENOL-CO 00:00: mouth [place] DEINE #3) 00 every 6 Medical 300-30 mg (six) Branch tablet hours as needed (pain unrelieved by Ibuprofen) . ibuprofen 2020-0 Yes [id number] 600mg Take 1 Univers 600 mg 1-03 07 tablet by ity of tablet 00:00: mouth [place] 00 every 6 Medical (six) Branch hours as needed for Pain (scale 1-3). cyclobenzap 2020-0 Yes [id number] 5mg Take 1 Univers rine 5 mg 1-03 07 tablet by ity o f tablet 00:00: mouth 3 [place] 00 (three) Medical times Branch daily as needed for Muscle Spasms. acetaminoph 2020-0 Yes [id number] 1{tbl} Take 1 Univers en-codeine 1-03 07 tablet by ity of (TYLENOL-CO 00:00: mouth [place] DEINE #3) 00 every 6 Medical 300-30 mg (six) Branch tablet hours as needed (pain unrelieved by Ibuprofen) . ibuprofen 2020-0 Yes [id number] 600mg Take 1 Univers 600 mg 1-03 07 tablet by ity of tablet 00:00: mouth [place] 00 every 6 Medical (six) Branch hours as needed for Pain (scale 1-3). cyclobenzap 2020-0 Yes [id number] 5mg Take 1 Univers rine 5 mg 1-03 07 tablet by ity o f tablet 00:00: mouth 3 [place] 00 (three) Medical times Branch daily as needed for Muscle Spasms. acetaminoph 2020-0 Yes [id number] 1{tbl} Take 1 Univers en-codeine 1-03 07 tablet by ity of (TYLENOL-CO 00:00: mouth [place] DEINE #3) 00 every 6 Medical 300-30 mg (six) Branch tablet hours as needed (pain unrelieved by Ibuprofen) . ibuprofen 2020-0 Yes [id number] 600mg Take 1 Univers 600 mg 1-03 07 tablet by ity of tablet 00:00: mouth [place] 00 every 6 Medical (six) Branch hours as needed for Pain (scale 1-3). cyclobenzap 2020-0 Yes [id number] 5mg Take 1 Univers rine 5 mg 1-03 07 tablet by ity o f tablet 00:00: mouth 3 [place] 00 (three) Medical times Branch daily as needed for Muscle Spasms. acetaminoph 2020-0 Yes [id number] 1{tbl} Take 1 Univers en-codeine 1-03 07 tablet by ity of (TYLENOL-CO 00:00: mouth [place] DEINE #3) 00 every 6 Medical 300-30 mg (six) Branch tablet hours as needed (pain unrelieved by Ibuprofen) . ibuprofen 2020-0 Yes [id number] 600mg Take 1 Univers 600 mg 1-03 07 tablet by ity of tablet 00:00: mouth [place] 00 every 6 Medical (six) Branch hours as needed for Pain (scale 1-3). cyclobenzap 2020-0 Yes [id number] 5mg Take 1 Univers rine 5 mg 07-22 07 tablet by ity o f tablet 00:00: mouth 3 [place] 00 (three) Medical times Branch daily as needed for Muscle Spasms. traMADOL 50 2018- No 50mg Take 50 mg Univers mg tablet 03-14 by mouth ity o f 14:44: 00:00 every 6 [place] 07 :00 (six) Medical hours as Branch needed. traMADOL 50 2018- No 50mg Take 50 mg Univers mg tablet 03-14 by mouth ity o f 14:44: 00:00 every 6 [place] 07 :00 (six) Medical hours as Branch needed. lisinopril Yes [id number] 5mg Take 1 U nivers (PRINIVIL) 8-26 tablet by ity of 5 mg tablet 00:00: mouth [place] 00 daily. Medical Branch lisinopril Yes [id number] 5mg Take 1 U nivers (PRINIVIL) 8-26 tablet by ity of 5 mg tablet 00:00: mouth [place] 00 daily. Medical Branch lisinopril Yes [id number] 5mg Take 1 U nivers (PRINIVIL) 8-26 tablet by ity of 5 mg tablet 00:00: mouth [place] 00 daily. Medical Branch lisinopril Yes [id number] 5mg Take 1 U nivers (PRINIVIL) 8-26 tablet by ity of 5 mg tablet 00:00: mouth [place] 00 daily. Medical Branch lisinopril Yes [id number] 5mg Take 1 U nivers (PRINIVIL) 8-26 tablet by ity of 5 mg tablet 00:00: mouth [place] 00 daily. Medical Branch lisinopril Yes [id number] 5mg Take 1 U nivers (PRINIVIL) 8-26 tablet by ity of 5 mg tablet 00:00: mouth [place] 00 daily. Medical Branch lisinopril Yes [id number] 5mg Take 1 U nivers (PRINIVIL) 8-26 tablet by ity of 5 mg tablet 00:00: mouth [place] 00 daily. Medical Branch lisinopril Yes [id number] 5mg Take 1 U nivers (PRINIVIL) 8-26 tablet by ity of 5 mg tablet 00:00: mouth [place] 00 daily. Medical Branch lisinopril 2019-0 Yes [id number] 5mg Take 1 U nivers (PRINIVIL) 8-26 tablet by ity of 5 mg tablet 00:00: mouth [place] 00 daily. Medical Branch lisinopril 2019-0 Yes [id number] 5mg Take 1 U nivers (PRINIVIL) 8-26 tablet by ity of 5 mg tablet 00:00: mouth [place] 00 daily. Medical Branch lisinopril 2018-0 Yes [id number] 5mg Take 1 U nivers (PRINIVIL) 8-26 tablet by ity of 5 mg tablet 00:00: mouth [place] 00 daily. Medical Branch lisinopril 2018-0 Yes [id number] 5mg Take 1 U nivers (PRINIVIL) 8-26 tablet by ity of 5 mg tablet 00:00: mouth [place] 00 daily. Medical Branch lisinopril 2018-0 Yes [id number] 5mg Take 1 U nivers (PRINIVIL) 8-26 tablet by ity of 5 mg tablet 00:00: mouth [place] 00 daily. Medical Branch lisinopril 0 Yes [id number] 5mg Take 1 U nivers (PRINIVIL) 8-26 tablet by ity of 5 mg tablet 00:00: mouth [place] 00 daily. Medical Branch traMADOL 50 2019-0 Yes 50mg Take 50 mg Univers mg tablet 1-18 by mouth ity of 14:58: every 6 [place] [address] (six) Medical hours as Branch needed. traMADOL 50 2019-0 Yes 50mg Take 50 mg Univers mg tablet 1-18 by mouth ity of 14:58: every 6 [place] [address] (six) Medical hours as Branch needed. traMADOL 50 2019-0 Yes 50mg Take 50 mg Univers mg tablet 1-18 by mouth ity of 14:58: every 6 [place] [address] (six) Medical hours as Branch needed. traMADOL 50 2019-0 Yes 50mg Take 50 mg Univers mg tablet 1-18 by mouth ity of 14:58: every 6 [place] [address] (six) Medical hours as Branch needed. traMADOL 50 2019-0 Yes 50mg Take 50 mg Univers mg tablet 1-18 by mouth ity of 14:58: every 6 [place] [address] (six) Medical hours as Branch needed. azithromyci 2018-1 Yes 250mg Take 1 Uni vers n 2-31 tablet by ity of (ZITHROMAX 00:00: mouth [place] Z-KIMBERLYN) 250 00 SEE-INSTRU Med ical mg tablet CTIONS. Branch Take 500 mg day 1, then 250 mg days 2 to 5. methylPREDN 2017- Yes Take by Un er[place] ISolone 4 2-31 mouth ity of mg tablets 00:00: SEE-INSTRU [place] 00 CTIONS. Medical follow Branch package directions azithromyci 2017-07 Yes 250mg Take 1 Uni vers n 2-31 tablet by ity of (ZITHROMAX 00:00: mouth [place] Z-KIMBERLYN) 250 00 SEE-INSTRU Med ical mg tablet CTIONS. Branch Take 500 mg day 1, then 250 mg days 2 to 5. methylPREDN 2017-07 Yes Take by Un erwin ISolone 4 2-31 mouth ity of mg tablets 00:00: SEE-INSTRU [place] 00 CTIONS. Medical follow Branch package directions azithromyci 2017-07 Yes 250mg Take 1 Uni vers n 2-31 tablet by ity of (ZITHROMAX 00:00: mouth [place] Z-KIMBERLYN) 250 00 SEE-INSTRU Med ical mg tablet CTIONS. Branch Take 500 mg day 1, then 250 mg days 2 to 5. methylPREDN 2017- Yes Take by Un erwin ISolone 4 2-31 mouth ity of mg tablets 00:00: SEE-INSTRU [place] 00 CTIONS. Medical follow Branch package directions azithromyci 2017-07 Yes 250mg Take 1 Uni vers n 2-31 tablet by ity of (ZITHROMAX 00:00: mouth [place] Z-KIMBERLYN) 250 00 SEE-INSTRU Med ical mg tablet CTIONS. Branch Take 500 mg day 1, then 250 mg days 2 to 5. methylPREDN 2017- Yes Take by Un erwin ISolone 4 2-31 mouth ity of mg tablets 00:00: SEE-INSTRU [place] 00 CTIONS. Medical follow Branch package directions azithromyci 2017-07 Yes 250mg Take 1 Uni vers n 2-31 tablet by ity of (ZITHROMAX 00:00: mouth [place] Z-KIMBERLYN) 250 00 SEE-INSTRU Med ical mg tablet CTIONS. Branch Take 500 mg day 1, then 250 mg days 2 to 5. methylPREDN 2017-07 Yes Take by Un erwin ISolone 4 mouth ity of mg tablets 00:00: SEE-INSTRU [place] 00 CTIONS. Medical follow Branch package directions azithromyci 2017-07 2019- No 250mg Take 1 Un erwin n 03-14 tablet by ity of (ZITHROMAX 00:00: 00:00 mouth [place] Z-KIMBERLYN) 250 00 :00 SEE-INSTRU Med ical mg tablet CTIONS. Branch Take 500 mg day 1, then 250 mg days 2 to 5. methylPREDN 2017-07- No Take by U nivers ISolone 4 03-14 mouth ity of mg tablets 00:00: 00:00 SEE-INSTRU [place] 00 :00 CTIONS. Medical follow Branch package directions azithromyci 2017-07- No 250mg Take 1 Un erwin n 03-14 tablet by ity of (ZITHROMAX 00:00: 00:00 mouth [place] Z-KIMBERLYN) 250 00 :00 SEE-INSTRU Med ical mg tablet CTIONS. Branch Take 500 mg day 1, then 250 mg days 2 to 5. methylPREDN 2017-07 2019- No Take by U nivers ISolone 4 03-14 mouth ity of mg tablets 00:00: 00:00 SEE-INSTRU [place] 00 :00 CTIONS. Medical follow Branch package directions inhalationa 2017-0 Yes Use as Univ ers l spacing 7-08 directed ity of device 00:00: [place] (BREATHERIT 00 Medical E Branch SPACER-MASK ,ADULT) inhalationa 2017-0 Yes Use as Univ ers l spacing 7-08 directed ity of device 00:00: [place] (BREATHERIT 00 Medical E Branch SPACER-MASK ,ADULT) inhalationa 2017-0 Yes Use as Univ ers l spacing 7-08 directed ity of device 00:00: [place] (BREATHERIT 00 Medical E Branch SPACER-MASK ,ADULT) inhalationa 2017-0 Yes Use as Univ ers l spacing 7-08 directed ity of device 00:00: [place] (BREATHERIT 00 Medical E Branch SPACER-MASK ,ADULT) inhalationa 2017-0 Yes Use as Univ ers l spacing 7-08 directed ity of device 00:00: [place] (BREATHERIT 00 Medical E Branch SPACER-MASK ,ADULT) inhalationa 2017-0 Yes Use as Univ ers l spacing 7-08 directed ity of device 00:00: [place] (BREATHERIT 00 Medical E Branch SPACER-MASK ,ADULT) inhalationa 2017-0 Yes Use as Univ ers l spacing 7-08 directed ity of device 00:00: [place] (BREATHERIT 00 Medical E Branch SPACER-MASK ,ADULT) inhalationa 2017-0 Yes Use as Univ ers l spacing 7-08 directed ity of device 00:00: [place] (BREATHERIT 00 Medical E Branch SPACER-MASK ,ADULT) inhalationa 2017-0 Yes Use as Univ ers l spacing 7-08 directed ity of device 00:00: [place] (BREATHERIT 00 Medical E Branch SPACER-MASK ,ADULT) inhalationa 2017-0 Yes Use as Univ ers l spacing 7-08 directed ity of device 00:00: [place] (BREATHERIT 00 Medical E Branch SPACER-MASK ,ADULT) inhalationa 2017-0 Yes Use as Univ ers l spacing 7-08 directed ity of device 00:00: [place] (BREATHERIT 00 Medical E Branch SPACER-MASK ,ADULT) inhalationa 2017-0 Yes Use as Univ ers l spacing 7-08 directed ity of device 00:00: [place] (BREATHERIT 00 Medical E Branch SPACER-MASK ,ADULT) inhalationa 2017-0 Yes Use as Univ ers l spacing 7-08 directed ity of device 00:00: [place] (BREATHERIT 00 Medical E Branch SPACER-MASK ,ADULT) inhalationa 2017-0 Yes Use as Univ ers l spacing 7-08 directed ity of device 00:00: [place] (BREATHERIT 00 Medical E Branch SPACER-MASK ,ADULT) inhalationa 2017-0 Yes Use as Univ ers l spacing 7-08 directed ity of device 00:00: [place] (BREATHERIT 00 Medical E Branch SPACER-MASK ,ADULT) albuterol 2017-0 Yes 2{puff} Inhale 2 U nivers 90 7-08 Puffs ity of mcg/actuati 00:00: every 4 [place] on inhaler 00 (four) Medical hours as Branch needed for Wheezing or Shortness of Breath. inhalationa 2017-0 Yes Use as Univ ers l spacing 7-08 directed ity of device 00:00: [place] (BREATHERIT 00 Medical E Branch SPACER-MASK ,ADULT) inhalationa 2017-0 Yes Use as Univ ers l spacing 7-08 directed ity of device 00:00: [place] (BREATHERIT 00 Medical E Branch SPACER-MASK ,ADULT) albuterol 2016-0 Yes 2{puff} Inhale 2 U nivers 90 7-08 Puffs ity of mcg/actuati 00:00: every 4 [place] on inhaler 00 (four) Medical hours as Branch needed for Wheezing or Shortness of Breath. inhalationa 2016- Yes Use as Univ ers l spacing 7-08 directed ity of device 00:00: [place] (BREATHERIT 00 Medical E Branch SPACER-MASK ,ADULT) albuterol 2016-0 Yes 2{puff} Inhale 2 U nivers 90 7-08 Puffs ity of mcg/actuati 00:00: every 4 [place] on inhaler 00 (four) Medical hours as Branch needed for Wheezing or Shortness of Breath. inhalationa 2016- Yes Use as Univ ers l spacing 7-08 directed ity of device 00:00: [place] (BREATHERIT 00 Medical E Branch SPACER-MASK ,ADULT) albuterol 2016-0 Yes 2{puff} Inhale 2 U nivers 90 7-08 Puffs ity of mcg/actuati 00:00: every 4 [place] on inhaler 00 (four) Medical hours as Branch needed for Wheezing or Shortness of Breath. inhalationa 2016- Yes Use as Univ ers l spacing 7-08 directed ity of device 00:00: [place] (BREATHERIT 00 Medical E Branch SPACER-MASK ,ADULT) albuterol 2016-0 Yes 2{puff} Inhale 2 U nivers 90 7-08 Puffs ity of mcg/actuati 00:00: every 4 [place] on inhaler 00 (four) Medical hours as Branch needed for Wheezing or Shortness of Breath. inhalationa 2016- Yes Use as Univ ers l spacing 7-08 directed ity of device 00:00: [place] (BREATHERIT 00 Medical E Branch SPACER-MASK ,ADULT) albuterol 2016-0 2019- No 2{puff} Inhale 2 Univers 90 7-08 08-26 Puffs ity of mcg/actuati 00:00: 00:00 every 4 [place] on inhaler 00 :00 (four) Medical hours as Branch needed for Wheezing or Shortness of Breath. albuterol 2019- No 2{puff} Inhale 2 [place] [id number] 01-24 08-26 Puffs ity of mcg/actuati 00:00: 00:00 every 4 [place] inhaler 00 :00 (four) Medical hours as Branch needed for Wheezing or Shortness of Breath. Vital Signs Vital Name Observation Time Observation Value Comments Source HEIGHT 2021-03-24 18:00:00 162.6 cm WEIGHT 2021-03-24 18:00:00 66.1 kg HEIGHT 2021-03-21 17:45:00 162.6 cm WEIGHT 2021-03-21 17:45:00 72.122 kg HEIGHT 2021-03-21 17:00:00 162.6 cm WEIGHT 2021-03-21 17:00:00 72.122 kg HEIGHT 2021-03-24 18:00:00 162.6 cm WEIGHT 2021-03-24 18:00:00 66.1 kg HEIGHT 2021-03-21 17:45:00 162.6 cm WEIGHT 2021-03-21 17:45:00 72.122 kg HEIGHT 2021-03-21 17:00:00 162.6 cm WEIGHT 2021-03-21 17:00:00 72.122 kg Body temperature 2021-03-17 00:10:31 [facility] 2021-03-17 00:07:12 156 mm[Hg] [facility] Diastolic blood 2021-03-17 00:07:12 89 mm[Hg] Unive rsity of pressure [facility] Heart rate 2021-03-17 00:07:12 81 /min [facility] Respiratory rate 2021-03-17 00:07:12 18 /min [facility] in 2021-03-17 00:07:12 98 /min [facility] Arterial blood by [facility] Pulse oximetry Branch Body height 2021-03-16 21:38:[address] [facility] Body weight 2021-03-16 21:38:[address] [facility] BMI 2021-03-16 21:38:00 27.46 kg/m2 [facility] Systolic blood 2020-03-18 21:18:00 159 mm[Hg] Univer sity of pressure [facility] Diastolic blood 2020-03-18 21:18:00 112 mm[Hg] Unive rsity of pressure [facility] Heart rate 2020-03-18 21:18:00 76 /min [facility] Respiratory rate 2020-03-18 21:18:00 16 /min [facility] Body weight 2020-03-18 21:18:00 72.576 kg [facility] [place] [facility] BMI 2020-03-18 21:18:00 25.82 kg/m2 [facility] [place] [facility] Oxygen saturation in 2020-03-18 21:18:00 98 /min University of Arterial blood by [facility] Pulse oximetry Branch Systolic blood 2020-01-12 23:00:00 154 mm[Hg] Univer sity of pressure [facility] Diastolic blood 2020-01-12 23:00:00 104 mm[Hg] Unive rsity of pressure [facility] Heart rate 2020-01-12 23:00:00 71 /min [facility] [place] [facility] Respiratory rate 2020-01-12 23:00:00 19 /min Univ ers[facility] Oxygen saturation in 2020-01-12 23:00:00 97 /min University of Arterial blood by [place] [employer] [facility] Pulse oximetry Branch Body temperature 2020-01-12 20:09:00 37.06 Jaqui Univ [facility] [place] [facility] Body height 2020-01-12 20:09:00 167.6 cm [facility] [place] [facility] Body weight 2020-01-12 20:09:00 72.576 kg [facility] BMI 2020-01-12 20:09:00 25.82 kg/m2 [facility] Systolic blood 2019-12-28 19:19:00 171 mm[Hg] Univer sity of pressure [facility] Diastolic blood 2019-12-28 19:19:00 103 mm[Hg] Unive rsity of pressure [facility] Heart rate 2019-12-28 19:19:00 76 /min [facility] [place] [facility] Body temperature 2019-12-28 19:19:00 35.83 Jaqui Univ [facility] Respiratory rate 2019-12-28 19:19:00 16 /min Univ [facility] [place] [facility] Body height 2019-12-28 19:19:00 162.6 cm [facility] Body weight 2019-12-28 19:19:00 72.576 kg [facility] BMI 2019-12-28 19:19:00 27.46 kg/m2 [facility] Oxygen saturation in 2019-12-28 19:19:00 97 /min University of Arterial blood by [place] [employer] Pulse oximetry Branch Systolic blood 2019-08-29 21:00:00 158 mm[Hg] Univer sity of pressure [facility] Diastolic blood 2019-08-29 21:00:00 89 mm[Hg] Unive rsity of pressure [facility] Heart rate 2019-08-29 21:00:00 75 /min [facility] Respiratory rate 2019-08-29 21:00:00 18 /min Univ ersity [facility] Oxygen saturation in 2019-08-29 21:00:00 100 /min University of Arterial blood by [employer] [facility] Pulse oximetry Branch Body temperature 2019-08-29 19:07:00 36.67 Jaqui [facility] Body weight 2019-08-29 19:07:00 70.308 kg [facility] BMI 2019-08-29 19:07:00 26.61 kg/m2 [facility] Systolic blood 2019-03-14 19:30:00 148 mm[Hg] Univer sity of pressure [facility] Diastolic blood 2019-03-14 19:30:00 92 mm[Hg] Unive rsity of pressure [facility] Heart rate 2019-03-14 19:27:00 69 /min [facility] Respiratory rate 2019-03-14 19:27:00 19 /min Univ [facility] Body height 2019-03-14 19:27:00 162.6 cm [facility] Body weight 2019-03-14 19:27:00 66.588 kg [facility] BMI 2019-03-14 19:27:00 25.20 kg/m2 [facility] Oxygen saturation in 2019-03-14 19:27:00 98 /min University of Arterial blood by [employer] nighat Pulse oximetry Branch Systolic blood 2019-03-14 14:45:00 163 mm[Hg] Univer sity of pressure [facility] Diastolic blood 2019-03-14 14:45:00 94 mm[Hg] Moniee rsity of pressure [facility] Heart rate 2019-03-14 14:43:00 66 /min [facility] Respiratory rate 2019-03-14 14:43:00 19 /min [facility] Body height 2019-03-14 14:43:[address] [facility] Body weight 2019-03-14 14:43:[address] [facility] BMI 2019-03-14 14:43:00 25.44 kg/m2 [facility] Oxygen saturation in 2019-03-14 14:43:00 99 /min [facility] Arterial blood by [facility] Pulse oximetry Branch Procedures Procedure Date / Time Performing Clinician Source Performed COVID-19 (ID NOW RAPID 2021-03-16 21:51:00 Andrea Caicedo [facility] TESTING) Medical Branch NOTICE OF PRIVACY 2021-03-16 21:38:22 Doctor Unassigned, No [facility] CONSENT/REFUSAL FOR 2021-03-16 21:32:43 Doctor Unassigned, No Un i[facility] [place] [facility]AT[facility] Name [facility] Branch NOTICE OF PRIVACY 2020-03-18 21:10:21 Doctor Unassigned, No [facility] Name Medical Branch CONSENT/REFUSAL FOR 2020-03-18 21:09:58 Doctor Unassigned, No [facility] [place] [facility] Name [facility] TROPONIN I 2020-01-12 23:00:00 Milton Gold [facility] XR CHEST 1 VW 2020-01-12 21:05:58 Milton Gold [facility] EKG-12 LEAD 2020-01-12 20:52:24 Andrea Caicedo o f [facility] TROPONIN I 2020-01-12 20:51:00 Milton Gold [facility] COMP. METABOLIC PANEL 2020-01-12 20:51:00 Milton Gold [facility] ([id number]) [facility] CBC WITH DIFFERENTIAL 2020-01-12 20:51:00 Milton Gold Unive [facility] EKG-12 LEAD 2020-01-12 20:28:04 Milton Gold [facility] NOTICE OF PRIVACY 2020-01-12 20:15:02 Doctor Unassigned, No Univ ersity of [facility] Medical Branch CONSENT/REFUSAL FOR 2020-01-12 19:58:18 Doctor Unassigned, No Un [facility] [place] [facility] Name Medical Branch NOTICE OF PRIVACY 2019-12-28 19:11:43 Doctor Unassigned, No Univ ersity of [facility] Medical Branch CONSENT/REFUSAL FOR 2019-12-28 19:11:31 Doctor Unassigned, No [facility] [place] [facility] Name Medical Branch CONSENT/REFUSAL FOR 2019-08-29 19:07:07 Doctor Unassigned, No Un [facility] [place] [facility] Medical Branch AUTHORIZATION FOR 2019-03-01 05:01:00 Doctor Unassigned, No [facility] RE[facility] OF [facility] ASSIGNMENT OF BENEFITS 2019-02-17 14:48:20 Doctor Unassigned, No [facility] Plan of Care Planned Activity Planned Date Details Comments Source Future Scheduled Test SHINGLES VACCINES (#1) [facility] [code = SHINGLES VACCINES (#1)] Future Scheduled Test INFLUENZA VACCINE [code [facility] = INFLUENZA VACCINE] Future Scheduled Test COVID-19 VACCINE (1) [facility] [code = COVID-19 VACCINE (1)] Future Scheduled Test COLONOSCOPY SCREENING [facility] [code = COLONOSCOPY SCREENING] Encounters Start End Encounter Admission Attending Care Care Encounter Source Date/Time Date/Time Type Type Clinicians Facility Department ID 2021-05-20 Emergency [facility] [id number] Univers 18:47:20 ity [facility] 2021-05-17 Emergency [facility] [id number] Univers 14:51:46 ity [facility] 2021-05-17 Emergency [facility] [id number] [facility] ER [facility] [id number] [facility] 17:21:00 BURAK Med 2021-03-16 2021-03-16 [facility] 1.2.840.114 [id number] Univers 16:47:00 19:11:00 Jose Walker Shila [id number] i ty of [place] [id number] [facility] [phone] [address] 2021-03-16 2021-03-16 Orders Doctor RUSSEL 1.2.840.114 [id number] Univers 00:00:00 00:00:00 Only Unassigned, YOSI [id number] [place] [facility] [id number] Josse as [id number] [address] 2020-03-18 2020-03-18 Emergency [facility] 1.2.840.114 [id number] Univers 16:20:00 17:11:00 Carmenza Fuchs [id number] i ty of [place] [id number] [facility] [phone] [address] 2020-03-18 2020-03-18 Orders Doctor GOODE 1.2.840.114 [id number] Univers 00:00:00 00:00:00 Only Unassigned, YOSI [id number] [place] [facility] [id number] Josse as [phone] [address] 2020-01-12 2020-01-12 Emergency [facility] [id number] Univers 15:11:20 19:15:00 Milton Fuchs [id number] ity of [place] [id number] [facility] [phone] [address] 2020-01-12 2020-01-12 Emergency X [facility] [id number] Univers 15:11:20 19:15:00 MILTON ortiz of [facility] 2020-01-12 2020-01-12 Orders Doctor GOODE 1.2.840.114 [id number] Univers 00:00:00 00:00:00 Only Unassigned, YOSI [id number] [place] [facility] [id number] Josse as [phone] [address] 2019-12-28 2019-12-28 Emergency [facility] 1.2.840.114 [id number] Univers 14:24:52 15:07:00 Maria Seth Shila [id number] ity of [place] [id number] [facility] [phone] [facility] [address] [place] 2019-12-28 2019-12-28 Orders Doctor GOODE 1.2.840.114 [id number] Univers 00:00:00 00:00:00 Only Unassigned, YOSI [id number] ity of [facility] [id number] Josse as [phone] [place] [address] Branch 2019-08-29 2019-08-29 Emergency [facility] [id number] Univers 14:10:22 15:48:00 Agatha Ozuna Shila [id number] i ty of [place] [id number] [facility] [phone] [address] 2019-08-29 2019-08-29 Emergency X [facility] ERT [id number] Univers 14:10:22 15:48:00 AGATHA ity of [facility] 2019-07-22 2019-07-22 Emergency X [facility] ERT [id number] Univers 20:56:21 21:28:00 ity of [facility] 2019-03-14 2019-03-14 Office [facility] 1.2.840.114 [id number] Univers 14:10:26 21:22:26 Visit Belén Fuchs [id number] [id number] [phone] [place] dicak nal 059 [facility] 2019-03-14 2019-03-14 Office [facility] 1.2.840.114 [id number] Univers 09:23:01 10:11:35 Visit Dylan Fuchs 350.1.13.10 [id number] [phone] [place] dical nal 085 [facility] 2019-03-01 2019-03-01 Orders Doctor GOODE 1.2.840.114 [id number] Univers 00:00:00 00:00:00 Only Unassigned, YOSI 350.1.13.10 [place] [facility] [id number] Josse as [phone] [address] 2019-02-21 2019-02-21 Case Camila [facility] 1.2.840.114 [id number] Univers 00:00:00 00:00:00 Management Dylan Mccle[place]andton [id number] [id number] [phone] [address] 2019-02-21 2019-02-21 Rosemary Jensen [facility] [id number] Univers 00:00:00 00:00:00 Dylan Fuchs 350.1.13.10 [id number] [phone] [address] 2019-02-17 2019-02-17 Crane Follower Therapist, Adc Respiratory [facility] 1.2.840.114 [id number] [facility] 09:54:11 11:24:11 Visit Hubert Mcguire 350.1.13. 10 [id number] [phone] [address] 2019-02-17 2019-02-17 Orders Doctor RUSSEL 1.2.840.114 [id number] Univers 00:00:00 00:00:00 Only Unassigned, YOSI 350.1.13.10 [place] [facility] [id number] Josse as [phone] [address] Results Test Description Test Time Test Comments Results Result Comments Source POCT-GLUCOSE METER 2021-04-04 08:15:36 Test Item Value Reference Range Interpretation Comme [facility] POC-GLUCOSE METER (BESCAR) 242 mg/dL 70-110 H : TESTED AT [facility] [address] [facility] (test code = 1538) MARBIN Schmidt, 369[address]: Cadastral Surveyor/Techni mati ID = [id number] for KARLOS CUELLO COMPREHENSIVE METABOLIC [id number] 06:25:51 Test Item Value Reference Range Interpretation Comments TOTAL PROTEIN 6.1 gm/dL 6.0-8.3 (BEAKER) (test code = 770) ALBUMIN (BEAKER) 3.1 g/dL 3.5-5.0 L (test code = 1145) ALKALINE PHOSPHATASE 126 U/L 40-150 (BEAKER) (test code = 346) BILIRUBIN TOTAL 0.5 mg/dL 0.2-1.2 (BEAKER) (test code = 377) SODIUM (BEAKER) (test 139 meq/L 136-145 code = 381) POTASSIUM (BEAKER) 4.2 meq/L 3.5-5.1 (test code = 379) CHLORIDE (BEAKER) 101 meq/L 98-107 (test code = 382) CO2 (BEAKER) (test 29 meq/L 22-29 code = 355) BLOOD UREA NITROGEN 21 mg/dL 7-21 (BEAKER) (test code = 354) CREATININE (BEAKER) 0.76 mg/dL 0.57-1.25 (test code = 358) GLUCOSE RANDOM 86 mg/dL 70-105 (BEAKER) (test code = 652) CALCIUM (BEAKER) 8.6 mg/dL 8.4-10.2 (test code = 697) AST (SGOT) (BEAKER) 52 U/L 5-34 H (test code = 353) ALT (SGPT) (BEAKER) 162 U/L 6-55 H (test code = 347) EGFR (BEAKER) (test 106 ESTIMATE D GFR IS code = 1092) mL/min/1.73 sq NOT ACCURA TE m CREATININE CLEARANCE IN PREDICTING GLOMERULAR FILTRATION RATE . ESTIMATED GFR I S NOT APPLICABLE FOR DIALYSIS PATIEN TS. Cadastral Surveyor ID - RIO GPOCT-GLUCOSE [id number] 21:44:08 Test Item Value Reference Range Interpretation Comments POC-GLUCOSE METER 142 mg/dL 70-110 H : TESTED A T [facility] 6720 ([employer]) (test code = [facility] [employer] [facility], 1538) 97591: Cadastral Surveyor/Techni mati ID = [id number] for POOJA GARRETT POCT-GLUCOSE [id number] 17:26:09 Test Item Value Reference Range Interpretation Comments POC-GLUCOSE METER 73 mg/dL 70-110 : TESTED A T [facility] 67[facility] ([employer]) (test code = [facility] [employer] [facility], 1538) 84209: Cadastral Surveyor/Techni mati ID = [id number] for Will iams, Areiona POCT-GLUCOSE [id number] 11:53:01 Test Item Value Reference Range Interpretation Comments POC-GLUCOSE METER 76 mg/dL 70-110 : TESTED A T [facility] 67[facility] (BEAKER) (test code = [place] [facility], 1538) 433[address]: Cadastral Surveyor/Techni mati ID = [id number] for Will iams, Areiona HEMOGLOBIN [id number] 07:46:10 Test Item Value Reference Range Interpretation Comments HEMOGLOBIN A1C (BEAKER) (test code = 6.7 % 4.3-6.1 H 368) POCT-GLUCOSE [id number] 07:30:32 Test Item Value Reference Range Interpretation Comments POC-GLUCOSE METER 75 mg/dL 70-110 : TESTED A T [facility] 67[facility] (BEAKER) (test code = [place] [facility], 1538) 47433: Cadastral Surveyor/Techni mati ID = [id number] for Will ia, Areiona HIV-1 ANTIGEN WITH HIV-1/2 [id number] 06:28:29 Test Item Value Reference Range Interpretation Comments HIV-1 ANTIGEN WITH HIV 1\\T\\2 Nonreactive Nonreactive ANTIBODY (2) (BEAKER) (test code = 2586) Cadastral Surveyor ID - TAVON MHEPATITIS PANEL, [id number] 06:28:28 Test Item Value Reference Range Interpretation Comments HEPATITIS A IGM ANTIBODY (BEAKER) Nonreactive Nonreactive (test code = 498) HEPATITIS B CORE IGM ANTIBODY Nonreactive Nonreactive (BEAKER) (test code = 645) HEPATITIS C ANTIBODY (BEAKER) Nonreactive Nonreactive (test code = 367) HEPATITIS B SURFACE ANTIGEN (2) Nonreactive Nonreactive (BEAKER) (test code = 2585) Cadastral Surveyor ID - TAVON MCOMPREHENSIVE METABOLIC [id number] 05:49:27 Test Item Value Reference Range Interpretation Comments TOTAL PROTEIN 6.3 gm/dL 6.0-8.3 Specimen sligh tly (BEAKER) (test code = hemoly zed 770) ALBUMIN (BEAKER) 3.1 g/dL 3.5-5.0 L Specimen sl ightly (test code = 1145) hemolyzed ALKALINE PHOSPHATASE 99 U/L 40-150 (BEAKER) (test code = 346) BILIRUBIN TOTAL 0.4 mg/dL 0.2-1.2 Specimen sli ghtly (BEAKER) (test code = hemoly zed 377) SODIUM (BEAKER) (test 137 meq/L 136-145 code = 381) POTASSIUM (BEAKER) 4.8 meq/L 3.5-5.1 Specimen slightly (test code = 379) hemolyzed CHLORIDE (BEAKER) 100 meq/L 98-107 (test code = 382) CO2 (BEAKER) (test 28 meq/L 22-29 code = 355) BLOOD UREA NITROGEN 22 mg/dL 7-21 H (BEAKER) (test code = 354) CREATININE (BEAKER) 0.76 mg/dL 0.57-1.25 Specimen slightly (test code = 358) hemolyzed GLUCOSE RANDOM 77 mg/dL 70-105 (BEAKER) (test code = 652) CALCIUM (BEAKER) 8.4 mg/dL 8.4-10.2 (test code = 697) AST (SGOT) (BEAKER) 71 U/L 5-34 H Specimen slightly (test code = 353) hemolyzed ALT (SGPT) (BEAKER) 194 U/L 6-55 H Specimen slightly (test code = 347) hemolyzed EGFR (BEAKER) (test 106 ESTIMATE D GFR IS code = 1092) mL/min/1.73 sq NOT ACCURA TE m CREATININE CLEARANCE IN PREDICTING GLOMERULAR FILTRATION RATE . ESTIMATED GFR I S NOT APPLICABLE FOR DIALYSIS PATIEN TS. Cadastral Surveyor ID - TAVON MPOCT-GLUCOSE [id number] 21:24:03 Test Item Value Reference Range Interpretation Comments POC-GLUCOSE METER 89 mg/dL 70-110 : TESTED A T [facility] (BEAKER) (test code = [place], 1538) 76663: Cadastral Surveyor/Techni mati ID = [id number] for BJORN SULTANA TRACY POCT-GLUCOSE [id number] 17:40:28 Test Item Value Reference Range Interpretation Comments POC-GLUCOSE METER 155 mg/dL 70-110 H : TESTED A T [facility] (BEAKER) (test code = [place], 1538) 89852: Cadastral Surveyor/Techni mati ID = [id number] for Wi lliams, Areiona POCT-GLUCOSE [id number] 17:01:47 Test Item Value Reference Range Interpretation Comments POC-GLUCOSE METER 65 mg/dL 70-110 L : TESTED A T [facility] (BEAKER) (test code = [place], 1538) 33770: Cadastral Surveyor/Techni mati ID = [id number] for Fito tucker, Areiona POCT-GLUCOSE [id number] 12:39:04 Test Item Value Reference Range Interpretation Comments POC-GLUCOSE METER 155 mg/dL 70-110 H : TESTED A T [facility] (BEAKER) (test code = [place], 1538) 12940: Cadastral Surveyor/Techni mati ID = [id number] for Nolberto lliams, Areiona POCT-GLUCOSE [id number] 08:39:54 Test Item Value Reference Range Interpretation Comments POC-GLUCOSE METER 82 mg/dL 70-110 : TESTED A T [facility] (BEAKER) (test code = [place], 1538) 83633: Cadastral Surveyor/Techni mati ID = [id number] for Rina z (contract)Gordy COMPREHENSIVE METABOLIC [id number] 05:28:52 Test Item Value Reference Range Interpretation Comments TOTAL PROTEIN 6.4 gm/dL 6.0-8.3 (BEAKER) (test code = 770) ALBUMIN (BEAKER) 3.2 g/dL 3.5-5.0 L (test code = 1145) ALKALINE PHOSPHATASE 106 U/L 40-150 (BEAKER) (test code = 346) BILIRUBIN TOTAL 0.4 mg/dL 0.2-1.2 (BEAKER) (test code = 377) SODIUM (BEAKER) (test 140 meq/L 136-145 code = 381) POTASSIUM (BEAKER) 4.6 meq/L 3.5-5.1 (test code = 379) CHLORIDE (BEAKER) 103 meq/L 98-107 (test code = 382) CO2 (BEAKER) (test 28 meq/L 22-29 code = 355) BLOOD UREA NITROGEN 24 mg/dL 7-21 H (BEAKER) (test code = 354) CREATININE (BEAKER) 0.83 mg/dL 0.57-1.25 (test code = 358) GLUCOSE RANDOM 85 mg/dL 70-105 (BEAKER) (test code = 652) CALCIUM (BEAKER) 8.9 mg/dL 8.4-10.2 (test code = 697) AST (SGOT) (BEAKER) 98 U/L 5-34 H (test code = 353) ALT (SGPT) (BEAKER) 216 U/L 6-55 H (test code = 347) EGFR (BEAKER) (test 95 mL/min/1.73 ESTIMA NICK GFR IS code = 1092) sq m NOT ACCURATE CREATININE CLEARANCE IN PREDICTING GLOMERULAR FILTRATION RATE . ESTIMATED GFR I S NOT APPLICABLE FOR DIALYSIS PATIEN TS. Cadastral Surveyor ID - NAYELI [id number] 05:28:52 Test Item Value Reference Range Interpretation Comments MAGNESIUM (BEAKER) (test code = 2.2 mg/dL 1.6-2.6 627) Cadastral Surveyor ID - NAYELI WCBC (HEMOGRAM ONLY)2021-04-02 04:48:38 Test Item Value Reference Range Interpretation Comments WHITE BLOOD CELL COUNT (BEAKER) 10.4 K/ L 3.5-10.5 (test code = 775) RED BLOOD CELL COUNT (BEAKER) 4.26 M/ L 4.63-6.08 L (test code = 761) HEMOGLOBIN (BEAKER) (test code = 13.0 GM/DL 13.7-17.5 L 410) HEMATOCRIT (BEAKER) (test code = 40.4 % 40.1-51.0 411) MEAN CORPUSCULAR VOLUME (BEAKER) 94.8 fL 79.0-92.2 H (test code = 753) MEAN CORPUSCULAR HEMOGLOBIN 30.5 pg 25.7-32.2 (BEAKER) (test code = 751) MEAN CORPUSCULAR HEMOGLOBIN CONC 32.2 GM/DL 32.3-36.5 L (BEAKER) (test code = 752) RED CELL DISTRIBUTION WIDTH 14.3 % 11.6-14.4 (BEAKER) (test code = 412) PLATELET COUNT (BEAKER) (test 664 K/CU MM 150-450 H code = 756) MEAN PLATELET VOLUME (BEAKER) 8.9 fL 9.4-12.4 L (test code = 754) NUCLEATED RED BLOOD CELLS 0 /100 WBC 0-0 (BEAKER) (test code = 413) POCT-GLUCOSE [id number] 16:52:32 Test Item Value Reference Range Interpretation Comments POC-GLUCOSE METER 140 mg/dL 70-110 H : TESTED A T [facility] 6720 (BEAKER) (test code [facility], = 1538) 39977: Cadastral Surveyor/Techni mati ID = [id number] for Tim Burr C-REACTIVE [id number] 11:34:46 Test Item Value Reference Range Interpretation Comments C-REACTIVE PROTEIN (BEAKER) (test 1.16 mg/dL 0.00-0.50 H code = 676) Cadastral Surveyor ID - EMERSONPOCT-GLUCOSE [id number] 11:33:45 Test Item Value Reference Range Interpretation Comments POC-GLUCOSE METER 132 mg/dL 70-110 H : TESTED A T [facility] 6720 (BEAKER) (test code [facility], = 1538) 36515: Cadastral Surveyor/Techni mati ID = [id number] for Tim Burr [id number] 10:04:08 Test Item Value Reference Range Interpretation Comments MAGNESIUM (BEAKER) 2.1 mg/dL 1.6-2.6 Specimen slightly (test code = 627) hemolyzed Cadastral Surveyor ID - SHAY LCOMPREHENSIVE METABOLIC [id number] 10:04:08 Test Item Value Reference Range Interpretation Comments TOTAL PROTEIN 7.0 gm/dL 6.0-8.3 Specimen sligh tly (BEAKER) (test code = hemoly zed 770) ALBUMIN (BEAKER) 3.4 g/dL 3.5-5.0 L Specimen sl ightly (test code = 1145) hemolyzed ALKALINE PHOSPHATASE 100 U/L 40-150 (BEAKER) (test code = 346) BILIRUBIN TOTAL 0.5 mg/dL 0.2-1.2 Specimen sli ghtly (BEAKER) (test code = hemoly zed 377) SODIUM (BEAKER) (test 136 meq/L 136-145 code = 381) POTASSIUM (BEAKER) 4.1 meq/L 3.5-5.1 Specimen slightly (test code = 379) hemolyzed CHLORIDE (BEAKER) 101 meq/L 98-107 (test code = 382) CO2 (BEAKER) (test 24 meq/L 22-29 code = 355) BLOOD UREA NITROGEN 23 mg/dL 7-21 H (BEAKER) (test code = 354) CREATININE (BEAKER) 0.77 mg/dL 0.57-1.25 Specimen slightly (test code = 358) hemolyzed GLUCOSE RANDOM 152 mg/dL 70-105 H (BEAKER) (test code = 652) CALCIUM (BEAKER) 8.9 mg/dL 8.4-10.2 (test code = 697) AST (SGOT) (BEAKER) 42 U/L 5-34 H Specimen slightly (test code = 353) hemolyzed ALT (SGPT) (BEAKER) 174 U/L 6-55 H Specimen slightly (test code = 347) hemolyzed EGFR (BEAKER) (test 104 ESTIMATE D GFR IS code = 1092) mL/min/1.73 sq NOT ACCURA TE m CREATININE CLEARANCE IN PREDICTING GLOMERULAR FILTRATION RATE . ESTIMATED GFR I S NOT APPLICABLE FOR DIALYSIS PATIEN TS. Cadastral Surveyor ID - PIAYA [facility] (HEMOGRAM ONLY)2021-04-01 09:42:04 Test Item Value Reference Range Interpretation Comments WHITE BLOOD CELL COUNT (BEAKER) 15.4 K/ L 3.5-10.5 H (test code = 775) RED BLOOD CELL COUNT (BEAKER) 4.34 M/ L 4.63-6.08 L (test code = 761) HEMOGLOBIN (BEAKER) (test code = 13.3 GM/DL 13.7-17.5 L 410) HEMATOCRIT (BEAKER) (test code = 40.5 % 40.1-51.0 411) MEAN CORPUSCULAR VOLUME (BEAKER) 93.3 fL 79.0-92.2 H (test code = 753) MEAN CORPUSCULAR HEMOGLOBIN 30.6 pg 25.7-32.2 (BEAKER) (test code = 751) MEAN CORPUSCULAR HEMOGLOBIN CONC 32.8 GM/DL 32.3-36.5 (BEAKER) (test code = 752) RED CELL DISTRIBUTION WIDTH 14.2 % 11.6-14.4 (BEAKER) (test code = 412) PLATELET COUNT (BEAKER) (test 692 K/CU MM 150-450 H code = 756) MEAN PLATELET VOLUME (BEAKER) 9.0 fL 9.4-12.4 L (test code = 754) NUCLEATED RED BLOOD CELLS 0 /100 WBC 0-0 (BEAKER) (test code = 413) POCT-GLUCOSE [id number] 07:49:46 Test Item Value Reference Range Interpretation Comments POC-GLUCOSE METER 82 mg/dL 70-110 : TESTED A T [facility] 6720 (BEAKER) (test code [facility], = 1538) [id number]: Cadastral Surveyor/Techni mati ID = [id number] for Tim Burr POCT-GLUCOSE [id number] 20:44:50 Test Item Value Reference Range Interpretation Comments POC-GLUCOSE METER 267 mg/dL 70-110 H : TESTED A T [facility] 6720 (BEAKER) (test code = [place], 1538) [address]: Cadastral Surveyor/Techni mati ID = [id number] for ISSAC WOODY POCT-GLUCOSE [id number] 16:53:59 Test Item Value Reference Range Interpretation Comments POC-GLUCOSE METER 158 mg/dL 70-110 H : TESTED A T [facility] 6720 (BEAKER) (test code = [place], 1538) [id number]: Cadastral Surveyor/Techni mati ID = [id number] for JONESNATHEN JONATHAN RENDON [id number] 09:32:55 Test Item Value Reference Range Interpretation Comments MAGNESIUM (BEAKER) (test code = 2.2 mg/dL 1.6-2.6 627) Cadastral Surveyor ID Mariel AVERY FCOMPREHENSIVE METABOLIC [id number] 09:32:54 Test Item Value Reference Range Interpretation Comments TOTAL PROTEIN 6.4 gm/dL 6.0-8.3 (BEAKER) (test code = 770) ALBUMIN (BEAKER) 3.2 g/dL 3.5-5.0 L (test code = 1145) ALKALINE PHOSPHATASE 97 U/L 40-150 (BEAKER) (test code = 346) BILIRUBIN TOTAL 0.4 mg/dL 0.2-1.2 (BEAKER) (test code = 377) SODIUM (BEAKER) (test 138 meq/L 136-145 code = 381) POTASSIUM (BEAKER) 4.1 meq/L 3.5-5.1 (test code = 379) CHLORIDE (BEAKER) 101 meq/L 98-107 (test code = 382) CO2 (BEAKER) (test 26 meq/L 22-29 code = 355) BLOOD UREA NITROGEN 26 mg/dL 7-21 H (BEAKER) (test code = 354) CREATININE (BEAKER) 0.77 mg/dL 0.57-1.25 (test code = 358) GLUCOSE RANDOM 83 mg/dL 70-105 (BEAKER) (test code = 652) CALCIUM (BEAKER) 8.5 mg/dL 8.4-10.2 (test code = 697) AST (SGOT) (BEAKER) 57 U/L 5-34 H (test code = 353) ALT (SGPT) (BEAKER) 188 U/L 6-55 H (test code = 347) EGFR (BEAKER) (test 104 ESTIMATE D GFR IS code = 1092) mL/min/1.73 sq NOT ACCURA TE m CREATININE CLEARANCE IN PREDICTING GLOMERULAR FILTRATION RATE . ESTIMATED GFR I S NOT APPLICABLE FOR DIALYSIS PATIEN TS. Cadastral Surveyor ID - [facility] (HEMOGRAM ONLY)2021-03-31 07:02:05 Test Item Value Reference Range Interpretation Comments WHITE BLOOD CELL COUNT (BEAKER) 14.5 K/ L 3.5-10.5 H (test code = 775) RED BLOOD CELL COUNT (BEAKER) 4.35 M/ L 4.63-6.08 L (test code = 761) HEMOGLOBIN (BEAKER) (test code = 13.1 GM/DL 13.7-17.5 L 410) HEMATOCRIT (BEAKER) (test code = 40.1 % 40.1-51.0 411) MEAN CORPUSCULAR VOLUME (BEAKER) 92.2 fL 79.0-92.2 (test code = 753) MEAN CORPUSCULAR HEMOGLOBIN 30.1 pg 25.7-32.2 (BEAKER) (test code = 751) MEAN CORPUSCULAR HEMOGLOBIN CONC 32.7 GM/DL 32.3-36.5 (BEAKER) (test code = 752) RED CELL DISTRIBUTION WIDTH 14.0 % 11.6-14.4 (BEAKER) (test code = 412) PLATELET COUNT (BEAKER) (test 764 K/CU MM 150-450 H code = 756) MEAN PLATELET VOLUME (BEAKER) 9.1 fL 9.4-12.4 L (test code = 754) NUCLEATED RED BLOOD CELLS 0 /100 WBC 0-0 (BEAKER) (test code = 413) C-REACTIVE [id number] 08:12:45 Test Item Value Reference Range Interpretation Comments C-REACTIVE PROTEIN 3.30 mg/dL See_Comment H [Automat ed message] (BEAKER) (test code The syst em which = 676) generated this result transmitted ref erence range: <=1.00. The reference range was not used to interpr et this result as normal/abnormal . COMPREHENSIVE METABOLIC [id number] 05:28:48 Test Item Value Reference Range Interpretation Comments TOTAL PROTEIN 6.6 gm/dL 6.0-8.3 (BEAKER) (test code = 770) ALBUMIN (BEAKER) 3.3 g/dL 3.5-5.0 L (test code = 1145) ALKALINE PHOSPHATASE 101 U/L 40-150 (BEAKER) (test code = 346) BILIRUBIN TOTAL 0.4 mg/dL 0.2-1.2 (BEAKER) (test code = 377) SODIUM (BEAKER) (test 138 meq/L 136-145 code = 381) POTASSIUM (BEAKER) 4.7 meq/L 3.5-5.1 (test code = 379) CHLORIDE (BEAKER) 102 meq/L 98-107 (test code = 382) CO2 (BEAKER) (test 27 meq/L 22-29 code = 355) BLOOD UREA NITROGEN 24 mg/dL 7-21 H (BEAKER) (test code = 354) CREATININE (BEAKER) 0.76 mg/dL 0.57-1.25 (test code = 358) GLUCOSE RANDOM 105 mg/dL 70-105 (BEAKER) (test code = 652) CALCIUM (BEAKER) 8.8 mg/dL 8.4-10.2 (test code = 697) AST (SGOT) (BEAKER) 42 U/L 5-34 H (test code = 353) ALT (SGPT) (BEAKER) 153 U/L 6-55 H (test code = 347) EGFR (BEAKER) (test 106 ESTIMATE D GFR IS code = 1092) mL/min/1.73 sq NOT ACCURA TE m CREATININE CLEARANCE IN PREDICTING GLOMERULAR FILTRATION RATE . ESTIMATED GFR I S NOT APPLICABLE FOR DIALYSIS PATIEN TS. Cadastral Surveyor ID - TAVON [id number] 05:28:48 Test Item Value Reference Range Interpretation Comments MAGNESIUM (BEAKER) (test code = 2.2 mg/dL 1.6-2.6 627) Cadastral Surveyor ID - TAVON [facility] (HEMOGRAM ONLY)2021-03-30 05:28:09 Test Item Value Reference Range Interpretation Comments WHITE BLOOD CELL COUNT (BEAKER) 13.5 K/ L 3.5-10.5 H (test code = 775) RED BLOOD CELL COUNT (BEAKER) 4.36 M/ L 4.63-6.08 L (test code = 761) HEMOGLOBIN (BEAKER) (test code = 13.2 GM/DL 13.7-17.5 L 410) HEMATOCRIT (BEAKER) (test code = 40.6 % 40.1-51.0 411) MEAN CORPUSCULAR VOLUME (BEAKER) 93.1 fL 79.0-92.2 H (test code = 753) MEAN CORPUSCULAR HEMOGLOBIN 30.3 pg 25.7-32.2 (BEAKER) (test code = 751) MEAN CORPUSCULAR HEMOGLOBIN CONC 32.5 GM/DL 32.3-36.5 (BEAKER) (test code = 752) RED CELL DISTRIBUTION WIDTH 13.8 % 11.6-14.4 (BEAKER) (test code = 412) PLATELET COUNT (BEAKER) (test 752 K/CU MM 150-450 H code = 756) MEAN PLATELET VOLUME (BEAKER) 8.9 fL 9.4-12.4 L (test code = 754) NUCLEATED RED BLOOD CELLS 0 /100 WBC 0-0 (BEAKER) (test code = 413) CBC (HEMOGRAM ONLY)2021-03-29 06:17:00 Test Item Value Reference Range Interpretation Comments WHITE BLOOD CELL COUNT (BEAKER) 12.9 K/ L 3.5-10.5 H (test code = 775) RED BLOOD CELL COUNT (BEAKER) 4.27 M/ L 4.63-6.08 L (test code = 761) HEMOGLOBIN (BEAKER) (test code = 12.8 GM/DL 13.7-17.5 L 410) HEMATOCRIT (BEAKER) (test code = 39.5 % 40.1-51.0 L 411) MEAN CORPUSCULAR VOLUME (BEAKER) 92.5 fL 79.0-92.2 H (test code = 753) MEAN CORPUSCULAR HEMOGLOBIN 30.0 pg 25.7-32.2 (BEAKER) (test code = 751) MEAN CORPUSCULAR HEMOGLOBIN CONC 32.4 GM/DL 32.3-36.5 (BEAKER) (test code = 752) RED CELL DISTRIBUTION WIDTH 14.0 % 11.6-14.4 (BEAKER) (test code = 412) PLATELET COUNT (BEAKER) (test 826 K/CU MM 150-450 H code = 756) MEAN PLATELET VOLUME (BEAKER) 9.1 fL 9.4-12.4 L (test code = 754) NUCLEATED RED BLOOD CELLS 0 /100 WBC 0-0 (BEAKER) (test code = 413) [id number] 05:08:00 Test Item Value Reference Range Interpretation Comments MAGNESIUM (BEAKER) 2.2 mg/dL 1.6-2.6 Specimen slightly (test code = 627) hemolyzed Cadastral Surveyor ID - PIAYA LCOMPREHENSIVE METABOLIC [id number] 05:08:00 Test Item Value Reference Range Interpretation Comments TOTAL PROTEIN 6.5 gm/dL 6.0-8.3 Specimen sligh tly (BEAKER) (test code = hemoly zed 770) ALBUMIN (BEAKER) 3.1 g/dL 3.5-5.0 L Specimen sl ightly (test code = 1145) hemolyzed ALKALINE PHOSPHATASE 104 U/L 40-150 (BEAKER) (test code = 346) BILIRUBIN TOTAL 0.4 mg/dL 0.2-1.2 Specimen sli ghtly (BEAKER) (test code = hemoly zed 377) SODIUM (BEAKER) (test 138 meq/L 136-145 code = 381) POTASSIUM (BEAKER) 4.4 meq/L 3.5-5.1 Specimen slightly (test code = 379) hemolyzed CHLORIDE (BEAKER) 102 meq/L 98-107 (test code = 382) CO2 (BEAKER) (test 26 meq/L 22-29 code = 355) BLOOD UREA NITROGEN 21 mg/dL 7-21 (BEAKER) (test code = 354) CREATININE (BEAKER) 0.77 mg/dL 0.57-1.25 Specimen slightly (test code = 358) hemolyzed GLUCOSE RANDOM 110 mg/dL 70-105 H (BEAKER) (test code = 652) CALCIUM (BEAKER) 8.7 mg/dL 8.4-10.2 (test code = 697) AST (SGOT) (BEAKER) 49 U/L 5-34 H Specimen slightly (test code = 353) hemolyzed ALT (SGPT) (BEAKER) 164 U/L 6-55 H Specimen slightly (test code = 347) hemolyzed EGFR (BEAKER) (test 104 ESTIMATE D GFR IS code = 1092) mL/min/1.73 sq NOT ACCURA TE m CREATININE CLEARANCE IN PREDICTING GLOMERULAR FILTRATION RATE . ESTIMATED GFR I S NOT APPLICABLE FOR DIALYSIS PATIEN TS. Cadastral Surveyor ID - PIAYA OMPREHENSIVE METABOLIC [id number] 04:58:00 Test Item Value Reference Range Interpretation Comments TOTAL PROTEIN 6.7 gm/dL 6.0-8.3 (BEAKER) (test code = 770) ALBUMIN (BEAKER) 3.2 g/dL 3.5-5.0 L (test code = 1145) ALKALINE PHOSPHATASE 104 U/L 40-150 (BEAKER) (test code = 346) BILIRUBIN TOTAL 0.4 mg/dL 0.2-1.2 (BEAKER) (test code = 377) SODIUM (BEAKER) (test 135 meq/L 136-145 L code = 381) POTASSIUM (BEAKER) 4.9 meq/L 3.5-5.1 (test code = 379) CHLORIDE (BEAKER) 99 meq/L 98-107 (test code = 382) CO2 (BEAKER) (test 26 meq/L 22-29 code = 355) BLOOD UREA NITROGEN 17 mg/dL 7-21 (BEAKER) (test code = 354) CREATININE (BEAKER) 0.73 mg/dL 0.57-1.25 (test code = 358) GLUCOSE RANDOM 88 mg/dL 70-105 (BEAKER) (test code = 652) CALCIUM (BEAKER) 8.8 mg/dL 8.4-10.2 (test code = 697) AST (SGOT) (BEAKER) 65 U/L 5-34 H (test code = 353) ALT (SGPT) (BEAKER) 171 U/L 6-55 H (test code = 347) EGFR (BEAKER) (test 111 ESTIMATE D GFR IS code = 1092) mL/min/1.73 sq NOT ACCURA TE m CREATININE CLEARANCE IN PREDICTING GLOMERULAR FILTRATION RATE . ESTIMATED GFR I S NOT APPLICABLE FOR DIALYSIS PATIEN TS. Cadastral Surveyor ID - TAVON [id number] 04:58:00 Test Item Value Reference Range Interpretation Comments MAGNESIUM (BEAKER) (test code = 2.0 mg/dL 1.6-2.6 627) Cadastral Surveyor ID - TAVON MC-REACTIVE [id number] 04:58:00 Test Item Value Reference Range Interpretation Comments C-REACTIVE PROTEIN (BEAKER) (test 4.52 mg/dL 0.00-0.50 H code = 676) Cadastral Surveyor ID - TAVON [facility] (HEMOGRAM ONLY)2021-03-28 04:40:00 Test Item Value Reference Range Interpretation Comments WHITE BLOOD CELL COUNT (BEAKER) 12.4 K/ L 3.5-10.5 H (test code = 775) RED BLOOD CELL COUNT (BEAKER) 4.40 M/ L 4.63-6.08 L (test code = 761) HEMOGLOBIN (BEAKER) (test code = 13.3 GM/DL 13.7-17.5 L 410) HEMATOCRIT (BEAKER) (test code = 40.6 % 40.1-51.0 411) MEAN CORPUSCULAR VOLUME (BEAKER) 92.3 fL 79.0-92.2 H (test code = 753) MEAN CORPUSCULAR HEMOGLOBIN 30.2 pg 25.7-32.2 (BEAKER) (test code = 751) MEAN CORPUSCULAR HEMOGLOBIN CONC 32.8 GM/DL 32.3-36.5 (BEAKER) (test code = 752) RED CELL DISTRIBUTION WIDTH 13.9 % 11.6-14.4 (BEAKER) (test code = 412) PLATELET COUNT (BEAKER) (test 875 K/CU MM 150-450 H code = 756) MEAN PLATELET VOLUME (BEAKER) 9.0 fL 9.4-12.4 L (test code = 754) NUCLEATED RED BLOOD CELLS 0 /100 WBC 0-0 (BEAKER) (test code = 413) RAPID DRUG SCREEN, [id number] 13:38:00 Test Item Value Reference Range Interpretation Comments BARBITURATE URINE (BEAKER) (test Negative Negative code = 725) BENZODIAZEPINE SCREEN URINE (BEAKER) Negative Negative (test code = 726) COCAINE (METAB.) SCREEN (BEAKER) Negative Negative (test code = 1164) METHADONE SCREEN (BEAKER) (test code Negative Negative = 1436) OPIATE SCREEN URINE (BEAKER) (test Positive Negative A code = 734) CANNABINOID SCREEN URINE (BEAKER) Negative Negative (test code = 727) AMPH/METHAMPH SCREEN (BEAKER) (test Negative Negative code = 1438) PHENCYCLIDINE SCREEN URINE (BEAKER) Negative Negative (test code = 608) PH UA (BEAKER) (test code = 467) 7.0 5.0-8.0 DRUG CUTOFF CONC.Cocaine 300 ng/mL Cannabinoid 50 ng/mLBenzodiazepine 200 ng/mLBarbiturate 200 ng/mLPhencyclidine 25 ng/mLOpiate 300 ng/mLMethadone 300 ng/mLAmphetamine/ 1000 ng/mL MethamphetamineThis assay provides an unconfirmed qualitative test result for the clinical management of patients in emergency situations. Chain of custody not maintained. Some zusp-xsi-jeznxbh medications, as well as adulterants, may cause inaccurate results. Clinical correlation should be applied. A more comprehensivedrug screen or confirmation of a detected drug may be performed upon request.Cadastral Surveyor ID - SHAY Hummeljamey ID - [auto]COMPREHENSIVE METABOLIC [id number] 07:04:00 Test Item Value Reference Range Interpretation Comments TOTAL PROTEIN 7.0 gm/dL 6.0-8.3 Specimen sligh tly (BEAKER) (test code = hemoly zed 770) ALBUMIN (BEAKER) 3.4 g/dL 3.5-5.0 L Specimen sl ightly (test code = 1145) hemolyzed ALKALINE PHOSPHATASE 112 U/L 40-150 (BEAKER) (test code = 346) BILIRUBIN TOTAL 0.4 mg/dL 0.2-1.2 Specimen sli ghtly (BEAKER) (test code = hemoly zed 377) SODIUM (BEAKER) (test 137 meq/L 136-145 code = 381) POTASSIUM (BEAKER) 4.9 meq/L 3.5-5.1 Specimen slightly (test code = 379) hemolyzed CHLORIDE (BEAKER) 99 meq/L 98-107 (test code = 382) CO2 (BEAKER) (test 29 meq/L 22-29 code = 355) BLOOD UREA NITROGEN 16 mg/dL 7-21 (BEAKER) (test code = 354) CREATININE (BEAKER) 0.72 mg/dL 0.57-1.25 Specimen slightly (test code = 358) hemolyzed GLUCOSE RANDOM 87 mg/dL 70-105 (BEAKER) (test code = 652) CALCIUM (BEAKER) 9.1 mg/dL 8.4-10.2 (test code = 697) AST (SGOT) (BEAKER) 73 U/L 5-34 H Specimen slightly (test code = 353) hemolyzed ALT (SGPT) (BEAKER) 196 U/L 6-55 H Specimen slightly (test code = 347) hemolyzed EGFR (BEAKER) (test 113 ESTIMATE D GFR IS code = 1092) mL/min/1.73 sq NOT ACCURA TE m CREATININE CLEARANCE IN PREDICTING GLOMERULAR FILTRATION RATE . ESTIMATED GFR I S NOT APPLICABLE FOR DIALYSIS PATIEN TS. Cadastral Surveyor ID - PIAYA [facility] (HEMOGRAM ONLY)2021-03-27 05:26:00 Test Item Value Reference Range Interpretation Comments WHITE BLOOD CELL COUNT (BEAKER) 12.1 K/ L 3.5-10.5 H (test code = 775) RED BLOOD CELL COUNT (BEAKER) 4.25 M/ L 4.63-6.08 L (test code = 761) HEMOGLOBIN (BEAKER) (test code = 12.9 GM/DL 13.7-17.5 L 410) HEMATOCRIT (BEAKER) (test code = 39.1 % 40.1-51.0 L 411) MEAN CORPUSCULAR VOLUME (BEAKER) 92.0 fL 79.0-92.2 (test code = 753) MEAN CORPUSCULAR HEMOGLOBIN 30.4 pg 25.7-32.2 (BEAKER) (test code = 751) MEAN CORPUSCULAR HEMOGLOBIN CONC 33.0 GM/DL 32.3-36.5 (BEAKER) (test code = 752) RED CELL DISTRIBUTION WIDTH 13.9 % 11.6-14.4 (BEAKER) (test code = 412) PLATELET COUNT (BEAKER) (test 765 K/CU MM 150-450 H code = 756) MEAN PLATELET VOLUME (BEAKER) 9.1 fL 9.4-12.4 L (test code = 754) NUCLEATED RED BLOOD CELLS 0 /100 WBC 0-0 (BEAKER) (test code = 413) COMPREHENSIVE METABOLIC [id number] 05:11:00 Test Item Value Reference Range Interpretation Comments TOTAL PROTEIN 6.7 gm/dL 6.0-8.3 (BEAKER) (test code = 770) ALBUMIN (BEAKER) 3.3 g/dL 3.5-5.0 L (test code = 1145) ALKALINE PHOSPHATASE 98 U/L 40-150 (BEAKER) (test code = 346) BILIRUBIN TOTAL 0.6 mg/dL 0.2-1.2 (BEAKER) (test code = 377) SODIUM (BEAKER) (test 137 meq/L 136-145 code = 381) POTASSIUM (BEAKER) 4.8 meq/L 3.5-5.1 (test code = 379) CHLORIDE (BEAKER) 103 meq/L 98-107 (test code = 382) CO2 (BEAKER) (test 26 meq/L 22-29 code = 355) BLOOD UREA NITROGEN 15 mg/dL 7-21 (BEAKER) (test code = 354) CREATININE (BEAKER) 0.74 mg/dL 0.57-1.25 (test code = 358) GLUCOSE RANDOM 89 mg/dL 70-105 (BEAKER) (test code = 652) CALCIUM (BEAKER) 8.7 mg/dL 8.4-10.2 (test code = 697) AST (SGOT) (BEAKER) 79 U/L 5-34 H (test code = 353) ALT (SGPT) (BEAKER) 172 U/L 6-55 H (test code = 347) EGFR (BEAKER) (test 109 ESTIMATE D GFR IS code = 1092) mL/min/1.73 sq NOT ACCURA TE m CREATININE CLEARANCE IN PREDICTING GLOMERULAR FILTRATION RATE . ESTIMATED GFR I S NOT APPLICABLE FOR DIALYSIS PATIEN TS. Cadastral Surveyor ID - TAVON [id number] 05:11:00 Test Item Value Reference Range Interpretation Comments MAGNESIUM (BEAKER) (test code = 2.3 mg/dL 1.6-2.6 627) Cadastral Surveyor ID - TAVON MC-REACTIVE [id number] 05:11:00 Test Item Value Reference Range Interpretation Comments C-REACTIVE PROTEIN (BEAKER) (test 9.39 mg/dL 0.00-0.50 H code = 676) Cadastral Surveyor PRADEEP MONTES DE OCA [facility] (HEMOGRAM ONLY)2021-03-26 04:39:00 Test Item Value Reference Range Interpretation Comments WHITE BLOOD CELL COUNT (BEAKER) 9.7 K/ L 3.5-10.5 (test code = 775) RED BLOOD CELL COUNT (BEAKER) 4.42 M/ L 4.63-6.08 L (test code = 761) HEMOGLOBIN (BEAKER) (test code = 13.5 GM/DL 13.7-17.5 L 410) HEMATOCRIT (BEAKER) (test code = 39.7 % 40.1-51.0 L 411) MEAN CORPUSCULAR VOLUME (BEAKER) 89.8 fL 79.0-92.2 (test code = 753) MEAN CORPUSCULAR HEMOGLOBIN 30.5 pg 25.7-32.2 (BEAKER) (test code = 751) MEAN CORPUSCULAR HEMOGLOBIN CONC 34.0 GM/DL 32.3-36.5 (BEAKER) (test code = 752) RED CELL DISTRIBUTION WIDTH 13.9 % 11.6-14.4 (BEAKER) (test code = 412) PLATELET COUNT (BEAKER) (test 721 K/CU MM 150-450 H code = 756) MEAN PLATELET VOLUME (BEAKER) 9.0 fL 9.4-12.4 L (test code = 754) NUCLEATED RED BLOOD CELLS 0 /100 WBC 0-0 (BEAKER) (test code = 413) COMPREHENSIVE METABOLIC [id number] 05:50:00 Test Item Value Reference Range Interpretation Comments TOTAL PROTEIN 6.9 gm/dL 6.0-8.3 Specimen moder ately (BEAKER) (test code = hemoly zed 770) ALBUMIN (BEAKER) 3.1 g/dL 3.5-5.0 L Specimen mo derately (test code = 1145) hemolyzed ALKALINE PHOSPHATASE 94 U/L 40-150 (BEAKER) (test code = 346) BILIRUBIN TOTAL 0.5 mg/dL 0.2-1.2 Specimen mod erately (BEAKER) (test code = hemoly zed 377) SODIUM (BEAKER) (test 137 meq/L 136-145 code = 381) POTASSIUM (BEAKER) 4.5 meq/L 3.5-5.1 Specimen moderately (test code = 379) hemolyzed CHLORIDE (BEAKER) 103 meq/L 98-107 (test code = 382) CO2 (BEAKER) (test 23 meq/L 22-29 code = 355) BLOOD UREA NITROGEN 15 mg/dL 7-21 (BEAKER) (test code = 354) CREATININE (BEAKER) 0.80 mg/dL 0.57-1.25 Specimen moderately (test code = 358) hemolyzed GLUCOSE RANDOM 92 mg/dL 70-105 (BEAKER) (test code = 652) CALCIUM (BEAKER) 8.3 mg/dL 8.4-10.2 L (test code = 697) AST (SGOT) (BEAKER) 97 U/L 5-34 H Specimen moderately (test code = 353) hemolyzed ALT (SGPT) (BEAKER) 141 U/L 6-55 H Specimen moderately (test code = 347) hemolyzed EGFR (BEAKER) (test 100 ESTIMATE D GFR IS code = 1092) mL/min/1.73 sq NOT ACCURA TE m CREATININE CLEARANCE IN PREDICTING GLOMERULAR FILTRATION RATE . ESTIMATED GFR I S NOT APPLICABLE FOR DIALYSIS PATIEN TS. Cadastral Surveyor ID - [id number] 05:30:00 Test Item Value Reference Range Interpretation Comments PROCALCITONIN (BEAKER) (test code 0.11 ng/mL <0.05 H = 3036) SEPSIS RISK (ng/mL)Low: 0.05-0.50Intermediate: 0.51-2.00High: >=2.01CBC (HEMOGRAM ONLY)2021-03-25 04:58:00 Test Item Value Reference Range Interpretation Comments WHITE BLOOD CELL COUNT (BEAKER) 9.4 K/ L 3.5-10.5 (test code = 775) RED BLOOD CELL COUNT (BEAKER) 4.24 M/ L 4.63-6.08 L (test code = 761) HEMOGLOBIN (BEAKER) (test code = 12.9 GM/DL 13.7-17.5 L 410) HEMATOCRIT (BEAKER) (test code = 38.2 % 40.1-51.0 L 411) MEAN CORPUSCULAR VOLUME (BEAKER) 90.1 fL 79.0-92.2 (test code = 753) MEAN CORPUSCULAR HEMOGLOBIN 30.4 pg 25.7-32.2 (BEAKER) (test code = 751) MEAN CORPUSCULAR HEMOGLOBIN CONC 33.8 GM/DL 32.3-36.5 (BEAKER) (test code = 752) RED CELL DISTRIBUTION WIDTH 13.9 % 11.6-14.4 (BEAKER) (test code = 412) PLATELET COUNT (BEAKER) (test 685 K/CU MM 150-450 H code = 756) MEAN PLATELET VOLUME (BEAKER) 9.3 fL 9.4-12.4 L (test code = 754) NUCLEATED RED BLOOD CELLS 0 /100 WBC 0-0 (BEAKER) (test code = 413) B-TYPE NATRIURETIC FACTOR (BNP)2021-03-24 12:36:00 Test Item Value Reference Range Interpretation Comments B-TYPE NATRIURETIC PEPTIDE (BEAKER) 70 pg/mL 0-100 (test code = 700) Cadastral Surveyor ID - AABREANNEIDC-REACTIVE [id number] 12:28:00 Test Item Value Reference Range Interpretation Comments C-REACTIVE PROTEIN (BEAKER) (test 8.23 mg/dL 0.00-0.50 H code = 676) Cadastral Surveyor ID - [id number] 12:25:00 Test Item Value Reference Range Interpretation Comments PHOSPHORUS (BEAKER) 3.2 mg/dL 2.3-4.7 Specimen markedly (test code = 604) hemolyzed Cadastral Surveyor ID - Van, CHEST, 1 VIEW, NON [id number] 12:09:00Reason for exam:->hypoxiaShould this be performed at the bedside?->Yes [facility] : 1965 Sex: MFINAL REPORT EXAM: Chest one view COMPARISON: March 21, 2021 CLINICAL HISTORY: Hypoxia FINDINGS: Bilateral patchy airway opacities are again noted with mild interval worsening. The cardiac size is within normal limits. There is no evidence of pleural effusion or pneumothorax. The regional osseous structures are unremarkable. Signed: Sylwia Valdez MDReport Verified Klever e/Time: 03/24/2021 12:09:06 Reading Location: [address] Consult Reading Room Electronicallysigned by: SYLWIA VALDEZ M.D. on 03/24/2021 12:09 PM COMPREHENSIVE METABOLIC [id number] 08:09:00 Test Item Value Reference Range Interpretation Comments TOTAL PROTEIN 7.2 gm/dL 6.0-8.3 Specimen moder ately (BEAKER) (test code = hemoly zed 770) ALBUMIN (BEAKER) 3.1 g/dL 3.5-5.0 L Specimen mo derately (test code = 1145) hemolyzed ALKALINE PHOSPHATASE 86 U/L 40-150 (BEAKER) (test code = 346) BILIRUBIN TOTAL 0.5 mg/dL 0.2-1.2 Specimen mod erately (BEAKER) (test code = hemoly zed 377) SODIUM (BEAKER) (test 135 meq/L 136-145 L code = 381) POTASSIUM (BEAKER) 4.5 meq/L 3.5-5.1 Specimen moderately (test code = 379) hemolyzed CHLORIDE (BEAKER) 100 meq/L 98-107 (test code = 382) CO2 (BEAKER) (test 23 meq/L 22-29 code = 355) BLOOD UREA NITROGEN 17 mg/dL 7-21 (BEAKER) (test code = 354) CREATININE (BEAKER) 0.84 mg/dL 0.57-1.25 Specimen moderately (test code = 358) hemolyzed GLUCOSE RANDOM 82 mg/dL 70-105 (BEAKER) (test code = 652) CALCIUM (BEAKER) 7.9 mg/dL 8.4-10.2 L (test code = 697) AST (SGOT) (BEAKER) 76 U/L 5-34 H Specimen moderately (test code = 353) hemolyzed ALT (SGPT) (BEAKER) 112 U/L 6-55 H Specimen moderately (test code = 347) hemolyzed EGFR (BEAKER) (test 94 mL/min/1.73 ESTIMA NICK GFR IS code = 1092) sq m NOT ACCURATE CREATININE CLEARANCE IN PREDICTING GLOMERULAR FILTRATION RATE . ESTIMATED GFR I S NOT APPLICABLE FOR DIALYSIS PATIEN TS. Cadastral Surveyor ID - DBCOMPREHENSIVE METABOLIC [id number] 06:14:00 Test Item Value Reference Range Interpretation Comments TOTAL PROTEIN 6.7 gm/dL 6.0-8.3 (BEAKER) (test code = 770) ALBUMIN (BEAKER) 3.3 g/dL 3.5-5.0 L (test code = 1145) ALKALINE PHOSPHATASE 83 U/L 40-150 (BEAKER) (test code = 346) BILIRUBIN TOTAL 0.4 mg/dL 0.2-1.2 (BEAKER) (test code = 377) SODIUM (BEAKER) (test 138 meq/L 136-145 code = 381) POTASSIUM (BEAKER) 4.1 meq/L 3.5-5.1 (test code = 379) CHLORIDE (BEAKER) 104 meq/L 98-107 (test code = 382) CO2 (BEAKER) (test 24 meq/L 22-29 code = 355) BLOOD UREA NITROGEN 20 mg/dL 7-21 (BEAKER) (test code = 354) CREATININE (BEAKER) 0.77 mg/dL 0.57-1.25 (test code = 358) GLUCOSE RANDOM 130 mg/dL 70-105 H (BEAKER) (test code = 652) CALCIUM (BEAKER) 8.6 mg/dL 8.4-10.2 (test code = 697) AST (SGOT) (BEAKER) 59 U/L 5-34 H (test code = 353) ALT (SGPT) (BEAKER) 113 U/L 6-55 H (test code = 347) EGFR (BEAKER) (test 104 ESTIMATE D GFR IS code = 1092) mL/min/1.73 sq NOT ACCURA TE m CREATININE CLEARANCE IN PREDICTING GLOMERULAR FILTRATION RATE . ESTIMATED GFR I S NOT APPLICABLE FOR DIALYSIS PATIEN TS. Cadastral Surveyor ID - TAV[facility] W/PLT COUNT & AUTO [id number] 05:23:00 Test Item Value Reference Range Interpretation Comments WHITE BLOOD CELL COUNT (BEAKER) 13.4 K/ L 3.5-10.5 H (test code = 775) RED BLOOD CELL COUNT (BEAKER) 4.34 M/ L 4.63-6.08 L (test code = 761) HEMOGLOBIN (BEAKER) (test code = 13.1 GM/DL 13.7-17.5 L 410) HEMATOCRIT (BEAKER) (test code = 39.4 % 40.1-51.0 L 411) MEAN CORPUSCULAR VOLUME (BEAKER) 90.8 fL 79.0-92.2 (test code = 753) MEAN CORPUSCULAR HEMOGLOBIN 30.2 pg 25.7-32.2 (BEAKER) (test code = 751) MEAN CORPUSCULAR HEMOGLOBIN CONC 33.2 GM/DL 32.3-36.5 (BEAKER) (test code = 752) RED CELL DISTRIBUTION WIDTH 13.7 % 11.6-14.4 (BEAKER) (test code = 412) PLATELET COUNT (BEAKER) (test 605 K/CU MM 150-450 H code = 756) MEAN PLATELET VOLUME (BEAKER) 9.6 fL 9.4-12.4 (test code = 754) NUCLEATED RED BLOOD CELLS 0 /100 WBC 0-0 (BEAKER) (test code = 413) NEUTROPHILS RELATIVE PERCENT 93 % (BEAKER) (test code = 429) LYMPHOCYTES RELATIVE PERCENT 3 % (BEAKER) (test code = 430) MONOCYTES RELATIVE PERCENT 3 % (BEAKER) (test code = 431) EOSINOPHILS RELATIVE PERCENT 0 % (BEAKER) (test code = 432) BASOPHILS RELATIVE PERCENT 0 % (BEAKER) (test code = 437) NEUTROPHILS ABSOLUTE COUNT 12.37 K/ L 1.78-5.38 H (BEAKER) (test code = 670) LYMPHOCYTES ABSOLUTE COUNT 0.41 K/ L 1.32-3.57 L (BEAKER) (test code = 414) MONOCYTES ABSOLUTE COUNT (BEAKER) 0.43 K/ L 0.30-0.82 (test code = 415) EOSINOPHILS ABSOLUTE COUNT 0.00 K/ L 0.04-0.54 L (BEAKER) (test code = 416) BASOPHILS ABSOLUTE COUNT (BEAKER) 0.01 K/ L 0.01-0.08 (test code = 417) IMMATURE GRANULOCYTES-RELATIVE 1 % 0-1 PERCENT (BEAKER) (test code = 2801) CHOLESTEROL, [id number] 09:48:00 Test Item Value Reference Range Interpretation Comments CHOLESTEROL (BEAKER) (test code = 110 mg/dL 631) Cholesterol Reference Range: Low Risk <200 Borderline 200-239 High Risk >240 Cadastral Surveyor ID - DBCBC W/PLT COUNT & AUTO [id number] 06:40:00 Test Item Value Reference Range Interpretation Comments WHITE BLOOD CELL COUNT (BEAKER) 6.9 K/ L 3.5-10.5 (test code = 775) RED BLOOD CELL COUNT (BEAKER) 4.30 M/ L 4.63-6.08 L (test code = 761) HEMOGLOBIN (BEAKER) (test code = 13.0 GM/DL 13.7-17.5 L 410) HEMATOCRIT (BEAKER) (test code = 37.8 % 40.1-51.0 L 411) MEAN CORPUSCULAR VOLUME (BEAKER) 87.9 fL 79.0-92.2 (test code = 753) MEAN CORPUSCULAR HEMOGLOBIN 30.2 pg 25.7-32.2 (BEAKER) (test code = 751) MEAN CORPUSCULAR HEMOGLOBIN CONC 34.4 GM/DL 32.3-36.5 (BEAKER) (test code = 752) RED CELL DISTRIBUTION WIDTH 13.5 % 11.6-14.4 (BEAKER) (test code = 412) PLATELET COUNT (BEAKER) (test 467 K/CU MM 150-450 H code = 756) MEAN PLATELET VOLUME (BEAKER) 9.4 fL 9.4-12.4 (test code = 754) NUCLEATED RED BLOOD CELLS 0 /100 WBC 0-0 (BEAKER) (test code = 413) NEUTROPHILS RELATIVE PERCENT 92 % (BEAKER) (test code = 429) LYMPHOCYTES RELATIVE PERCENT 5 % (BEAKER) (test code = 430) MONOCYTES RELATIVE PERCENT 3 % (BEAKER) (test code = 431) EOSINOPHILS RELATIVE PERCENT 0 % (BEAKER) (test code = 432) BASOPHILS RELATIVE PERCENT 0 % (BEAKER) (test code = 437) NEUTROPHILS ABSOLUTE COUNT 6.39 K/ L 1.78-5.38 H (BEAKER) (test code = 670) LYMPHOCYTES ABSOLUTE COUNT 0.33 K/ L 1.32-3.57 L (BEAKER) (test code = 414) MONOCYTES ABSOLUTE COUNT (BEAKER) 0.17 K/ L 0.30-0.82 L (test code = 415) EOSINOPHILS ABSOLUTE COUNT 0.00 K/ L 0.04-0.54 L (BEAKER) (test code = 416) BASOPHILS ABSOLUTE COUNT (BEAKER) 0.01 K/ L 0.01-0.08 (test code = 417) IMMATURE GRANULOCYTES-RELATIVE 0 % 0-1 PERCENT (BEAKER) (test code = 2801) COMPREHENSIVE METABOLIC [id number] 06:32:00 Test Item Value Reference Range Interpretation Comments TOTAL PROTEIN 7.0 gm/dL 6.0-8.3 (BEAKER) (test code = 770) ALBUMIN (BEAKER) 3.3 g/dL 3.5-5.0 L (test code = 1145) ALKALINE PHOSPHATASE 85 U/L 40-150 (BEAKER) (test code = 346) BILIRUBIN TOTAL 0.5 mg/dL 0.2-1.2 (BEAKER) (test code = 377) SODIUM (BEAKER) (test 134 meq/L 136-145 L code = 381) POTASSIUM (BEAKER) 3.8 meq/L 3.5-5.1 (test code = 379) CHLORIDE (BEAKER) 101 meq/L 98-107 (test code = 382) CO2 (BEAKER) (test 22 meq/L 22-29 code = 355) BLOOD UREA NITROGEN 16 mg/dL 7-21 (BEAKER) (test code = 354) CREATININE (BEAKER) 0.84 mg/dL 0.57-1.25 (test code = 358) GLUCOSE RANDOM 142 mg/dL 70-105 H (BEAKER) (test code = 652) CALCIUM (BEAKER) 8.4 mg/dL 8.4-10.2 (test code = 697) AST (SGOT) (BEAKER) 92 U/L 5-34 H (test code = 353) ALT (SGPT) (BEAKER) 121 U/L 6-55 H (test code = 347) EGFR (BEAKER) (test INSUFFIC IENT CLINICAL code = 1092) DATA TO CALCULA TE ESTIMATED GFR. Cadastral Surveyor ID - [id number] 06:28:00 Test Item Value Reference Range Interpretation Comments MAGNESIUM (BEAKER) (test code = 2.4 mg/dL 1.6-2.6 627) Cadastral Surveyor ID - DBLACTIC ACID, [id number] 05:23:00 Test Item Value Reference Range Interpretation Comments LACTATE BLOOD VENOUS (2) (BEAKER) 1.11 mmol/L 0.50-2.20 (test code = 2872) Cadastral Surveyor ID - DBRAD, CHEST, 1 VIEW, NON [id number] 04:43:00Reason for exam:- >covidShould this be performed at the bedside?->Yes [facility] 1965 Sex: MFINAL REPORT INDICATION: covid COMPARISON: None TECHNIQUE: Single frontal view of the chest. IMPRESSION: Lungs and pleura: Hypoinflated lungs with moderately extensive bilateral peripheral lung opacities compatible with Covid 19 pneumonia. No effusion.Heart and mediastinum: Normal heart size. Unremarkable mediastinal contours.Osseous structures: No acute abnormality. Partially imaged cervical spine fusion hardware.Other: None. Signed: [facility] Verified Date/Time: 03/22/2021 04:43:09 -[id number] 19:24:00 Test Item Value Reference Range Interpretation Comments D-DIMER QUANTITATIVE (BEAKER) 1.96 MG/L FEU <0.50 H (test code = 671) Intended Use: The D-Dimer Assay can be used to aid in the diagnosis of Deep Vein Thrombosis (DVT) and Pulmonary Embolism Disease (PED).In patients with low pre- test probability, various studies concerning STA Liatest D-dimer test have reported that with a cutoff value of 0.50 MG/L FEU, the Negative Predictive Value (NPV) regarding the exclusion of thrombosis is within 95-100% range. [id number] 19:22:00 Test Item Value Reference Range Interpretation Comments PROTIME (BEAKER) (test 15.3 seconds 11.9-14.2 H code = 759) INR (BEAKER) (test 1.23 See_Comment [Automat ed code = 370) message] The sy stem which generated this result transmitted reference range : <=5.90. The reference range was not used to interpret this result as normal/abnormal . PARTIAL THROMBOPLASTIN 26.9 seconds 22.5-36.0 TIME (BEAKER) (test code = 760) RECOMMENDED COUMADIN/WARFARIN INR THERAPY RANGESSTANDARD DOSE: 2.0 - 3.0 Includes: PROPHYLAXIS forvenous thrombosis, systemic embolization; TREATMENT for venous thrombosis and/or pulmonary embolus.HIGH RISK: Target INR is 2.5-3.5 for patients with mechanical heart valves.COMPREHENSIVE METABOLIC [id number] 19:18:00 Test Item Value Reference Range Interpretation Comments TOTAL PROTEIN 7.5 gm/dL 6.0-8.3 (BEAKER) (test code = 770) ALBUMIN (BEAKER) 3.6 g/dL 3.5-5.0 (test code = 1145) ALKALINE PHOSPHATASE 85 U/L 40-150 (BEAKER) (test code = 346) BILIRUBIN TOTAL 0.8 mg/dL 0.2-1.2 (BEAKER) (test code = 377) SODIUM (BEAKER) (test 135 meq/L 136-145 L code = 381) POTASSIUM (BEAKER) 3.7 meq/L 3.5-5.1 (test code = 379) CHLORIDE (BEAKER) 99 meq/L 98-107 (test code = 382) CO2 (BEAKER) (test 25 meq/L 22-29 code = 355) BLOOD UREA NITROGEN 11 mg/dL 7-21 (BEAKER) (test code = 354) CREATININE (BEAKER) 0.93 mg/dL 0.57-1.25 (test code = 358) GLUCOSE RANDOM 114 mg/dL 70-105 H (BEAKER) (test code = 652) CALCIUM (BEAKER) 8.4 mg/dL 8.4-10.2 (test code = 697) AST (SGOT) (BEAKER) 121 U/L 5-34 H (test code = 353) ALT (SGPT) (BEAKER) 132 U/L 6-55 H (test code = 347) EGFR (BEAKER) (test INSUFFIC IENT CLINICAL code = 1092) DATA TO CALCULA TE ESTIMATED GFR. Cadastral Surveyor ID - DBHIGH SENSITIVITY TROPONIN [id number] 19:17:00 Test Item Value Reference Range Interpretation Comments HIGH SENSITIVITY 5 pg/ml See_Comment [Automated message] TROPONIN I (test code = The system which 4873235) generated this result transmitted ref erence range: <=35. Th e reference range was not used to interpr et this result as normal/abnormal . Cadastral Surveyor ID - DBThe ARSON INVESTIGATOR STAT High Sensitivity Troponin-I results should be used in conjunctionwith other diagnostic information such as ECG, clinical observations and information, and patient symptoms to aid in the diagnosis of [place].C-REACTIVE [id number] 19:11:00 Test Item Value Reference Range Interpretation Comments C-REACTIVE PROTEIN (BEAKER) (test 31.92 mg/dL 0.00-0.50 H code = 676) Cadastral Surveyor ID - DBLACTIC ACID, [id number] 19:05:00 Test Item Value Reference Range Interpretation Comments LACTATE BLOOD VENOUS (2) (BEAKER) 1.44 mmol/L 0.50-2.20 (test code = 2872) Cadastral Surveyor ID - DBCBC (HEMOGRAM ONLY)2021-03-21 18:54:00 Test Item Value Reference Range Interpretation Comments WHITE BLOOD CELL COUNT (BEAKER) 7.0 K/ L 3.5-10.5 (test code = 775) RED BLOOD CELL COUNT (BEAKER) 4.60 M/ L 4.63-6.08 L (test code = 761) HEMOGLOBIN (BEAKER) (test code = 13.8 GM/DL 13.7-17.5 410) HEMATOCRIT (BEAKER) (test code = 39.9 % 40.1-51.0 L 411) MEAN CORPUSCULAR VOLUME (BEAKER) 86.7 fL 79.0-92.2 (test code = 753) MEAN CORPUSCULAR HEMOGLOBIN 30.0 pg 25.7-32.2 (BEAKER) (test code = 751) MEAN CORPUSCULAR HEMOGLOBIN CONC 34.6 GM/DL 32.3-36.5 (BEAKER) (test code = 752) RED CELL DISTRIBUTION WIDTH 13.2 % 11.6-14.4 (BEAKER) (test code = 412) PLATELET COUNT (BEAKER) (test 459 K/CU MM 150-450 H code = 756) MEAN PLATELET VOLUME (BEAKER) 8.9 fL 9.4-12.4 L (test code = 754) NUCLEATED RED BLOOD CELLS 0 /100 WBC 0-0 (BEAKER) (test code = 413) COVID-19 (ID NOW RAPID TESTING)2021-03-16 22:01:20 Test Item Value Reference Range Interpretation Comments SARS-CoV-2 Rapid ID NOW Positive Not Detected A (test code = 11495-1) CATHERINE (test code = CATHERINE) ID NOW COVID-19 Assay is an isothermal nucleic acid amplification test intended for the qualitative detection of nucleic acid from SARS-CoV-2 viral RNA in nasopharyngeal (FRETTED STRING INSTRUMENT REPAIRER) specimens. It is used under Emergency Use Authorization (EUA) by FDA. The limit of detection (LOD) of the assay is 125 Genome Equivalents/mL. A positive result is indicative of the presence of SARS-CoV-2 RNA. ?Clinical correlation with patient history and other diagnostic information is necessary to determine patient infection status. A negative (Not Detected) result does not preclude SARS-CoV-2 infection. In patients with clinical symptoms and other tests that are consistent with SARS-CoV-2 infection, negative results should be treated as presumptive negative and a new specimen should be tested with alternative PCR molecular test. Invalid: Please collect a new specimen for repeat patient testing if clinically indicated. Lab Interpretation Abnormal (test code = 66045-2) [facility]2021-03-16 22:01:20 Test Item Value Reference Range Interpretation Comments SARS-CoV-2 Rapid ID NOW (test code = Positive Not Detected A 57118-0) CATHERINE (test code = CATHERINE) Lab Interpretation (test code = Abnormal 06125-7) [id number] 23:59:00 Test Item Value Reference Range Interpretation Comments TROPONIN I (test <0.012 See_Comment [Automated code = [id number]) message] The system which generated this result transmitted reference range : <=0.034 ng/mL. The reference range was not used to interpr et this result as normal/abnormal . CATHERINE (test code = Equal or Less than CATHERINE) 0.034 ng/ml---Normal ?Note: Cardiac troponin begins to rise 3-4 hours after the onset of ischemia. Repeat in 4-6 hours if the sample was drawn within 3-4 hours of the onset of the symptom and found normal. Between 0.035 and 0.120 ng/mL--- Borderline. Questionable myocardial injury or necrosis ? ?Note: Serial measurement may be necessary to confirm or exclude the diagnosis of myocardial injury or necrosis; Clinical correlation (symptoms, EKGs, imaging studies, and others) required; Repeat in 4-6 hours if clinically indicated. ? Equal or Higher than 0.121 ng/mL---Abnormal. Myocardial Injury or Necrosis Likely ? Biotin has been reported to cause a negative bias, interpret results relative to patient's use of biotin. ? Lab Interpretation Normal (test code = 94353-6) [facility] 1 [id number] 22:22:50 No acute cardiopulmonary abnormality. Increasing prominence of the left perihilar density projecting betweenposterior left sixth and seventh ribs. Findings may represent prominentlymph node versus vasculature. Correlate clinically. This could be furthercharacterized with cross-sectional imaging. Preliminary Report Dictated by Resident: Josue Garcia MD., have reviewed this study and agree with theabove report.XR CHEST 1 VW HISTORY: 54 years-old; Male; chest pain COMPARISON: 07/19/2018 TECHNIQUE: SINGLE VIEW CHEST RADIOGRAPH. FINDINGS: The lungs are well-expanded and clear with no focal consolidation. There isno pleural effusion or pneumothorax. The cardiac silhouette is within normal limits. There is no acute osseous abnormality. [facility], Radiant Results Inft User - 01/12/2020 5:23 PM CDTXR CHEST 1 VWHISTORY: 54 years-old; Male; chest pain COMPARISON: 07/19/2018TECHNIQUE: SINGLE VIEW CHEST RADIOGRAPH.FINDINGS:The lungs are well-expanded and clear with no focal consolidation. There isno pleural effusion or pneumothorax.The cardiac silhouette is within normal limits.There is no acute osseous abnormality.IMPRESSIONNo acute cardiopulmonary abnormality.Increasing prominence of the left perihilar density projecting betweenposterior left sixth and seventh ribs. Findings may represent prominentlymph node versus vasculature. Correlate clinically. This could be furthercharacterized with cross-sectional imaging.Preliminary Report Dictated by Resident: Josue Gonzalez MD., have reviewed this study and agree with theabove report.[facility] 2020-01-12 21:26:00 Test Item Value Reference Range Interpretation Comments TROPONIN I (test <0.012 See_Comment [Automated code = [id number]) message] The system which generated this result transmitted reference range : <=0.034 ng/mL. The reference range was not used to interpr et this result as normal/abnormal . CATHERINE (test code = Equal or Less than CATHERINE) 0.034 ng/ml---Normal ?Note: Cardiac troponin begins to rise 3-4 hours after the onset of ischemia. Repeat in 4-6 hours if the sample was drawn within 3-4 hours of the onset of the symptom and found normal. Between 0.035 and 0.120 ng/mL--- Borderline. Questionable myocardial injury or necrosis ? ?Note: Serial measurement may be necessary to confirm or exclude the diagnosis of myocardial injury or necrosis; Clinical correlation (symptoms, EKGs, imaging studies, and others) required; Repeat in 4-6 hours if clinically indicated. ? Equal or Higher than 0.121 ng/mL---Abnormal. Myocardial Injury or Necrosis Likely ? Biotin has been reported to cause a negative bias, interpret results relative to patient's use of biotin. ? Lab Interpretation Normal (test code = 57669-0) [facility] (64008)2020-01-12 21:15:00 Test Item Value Reference Range Interpretation Comments NA (test code = 141 mmol/L 135-145 9304664513) K (test code = 3.9 mmol/L 3.5-5 0775776901) CL (test code = 105 mmol/L 98-108 9871005570) CO2 TOTAL (test code = 26 mmol/L 23-31 0629510734) AGAP (test code = 2-16 5028053931) BUN (test code = 20 mg/dL 7-23 6210577203) GLUCOSE (test code = 129 mg/dL 70-110 H 5249449347) CREATININE (test code = 0.86 mg/dL 0.6-1.25 9660293107) TOTAL BILI (test code = 0.4 mg/dL 0.1-1.6 8718089974) CALCIUM (test code = 9.5 mg/dL 8.6-10.6 9451435684) T PROTEIN (test code = 8.4 g/dL 6.3-8.2 H 7731552310) ALBUMIN (test code = 4.5 g/dL 3.5-5 7120995624) ALK PHOS (test code = 73 U/L 34-122 8893393748) ALTv (test code = 81 U/L 5-50 H 1742-6) AST(SGOT) (test code = 48 U/L 13-40 H 4607068752) eGFR Calculation mL/min/1.73m2 (Non-) (test code = 5598580008) eGFR Calculation mL/min/1.73m2 () (test code = 4345383509) CATHERINE (test code = CATHERINE) Association of Glomerular Filtration Rate (GFR) and Staging of Kidney Disease* + --+ --+ ------+| GFR (mL/min/1.73 m2) ?| With Kidney Damage ?| ?Without Kidney Damage+ --------+ --------+ +| ?>90 ?| ?Stage one ?| ? Normal ?+ ---+ ---+ -------+| ?60-89 ?| ?Stage two ?| ? Decreased GFR ? + --+ --+ ------+| ?30-59 ?| ?Stage three ?| ? Stage three ? + --+ --+ ------+| ?15-29 ?| ?Stage four ? | ? Stage four ?+ ---+ ---+ -------+| ?<15 (or dialysis) ? ?| ?Stage five ? | ? Stage five ?+ ---+ ---+ -------+ *Each stage assumes the associated GFR level has been in effect for at least three months. ?Stages 1 to 5, with or without kidney disease, indicate chronic kidney disease. Notes: Determination of stages one and two (with eGFR >59mL/min/1.73 m2) requires estimation of kidney damage for at least three months as defined by structural or functional abnormalities of the kidney, manifested by either:Pathological abnormalities or Markers of kidney damage (including abnormalities in the composition of the blood or urine or abnormalities in imaging tests). Lab Interpretation Abnormal (test code = 46644-6) [facility] WITH [id number] 21:05:00 Test Item Value Reference Range Interpretation Comments WBC (test code = See_Comment [Automated 1948-2) message] The sy stem which generated this result transmitted reference range : 4.20 - 10.70 10*3/?L. The reference range was not used to interpret this result as normal/abnormal . RBC (test code = See_Comment [Automated 064-8) message] The sy stem which generated this result transmitted reference range : 4.26 - 5.52 10*6/?L. The reference range was not used to interpret this result as normal/abnormal . HGB (test code = 16.0 g/dL 12.2-16.4 718-7) HCT (test code = 47.6 % 38.4-49.3 4544-3) MCV (test code = 93.0 fL 81.7-95.6 787-2) MCH (test code = 31.3 pg 26.1-32.7 785-6) MCHC (test code = 33.6 g/dL 31.2-35 786-4) RDW-SD (test code = 44.8 fL 38.5-51.6 38236-8) RDW-CV (test code = 13.1 % 12.1-15.4 788-0) PLT (test code = See_Comment H [Automated 777-3) message] The sy stem which generated this result transmitted reference range : 150 - 328 10*3/ ?L. The reference r richard was not used to interpret this result as normal/abnormal . MPV (test code = 9.6 fL 9.8-13 L 90142-6) NRBC/100 WBC (test See_Comment [Automat ed code = 7485131146) message] The system which generated this result transmitted reference range : 0.0 - 10.0 /100 WBCs. The refer ence range was not u sed to interpret th is result as normal/abnormal . NRBC x10^3 (test code <0.01 See_Comment [Auto mated = 5397271156) message] The s ystem which generated this result transmitted reference range : 10*3/?L. The reference range was not used to interpret this result as normal/abnormal . GRAN MAT (NEUT) % 63.2 % (test code = 770-8) IMM GRAN % (test code 0.60 % = 9847273162) LYMPH % (test code = 26.6 % 736-9) MONO % (test code = 7.5 % 5905-5) EOS % (test code = 1.3 % 713-8) BASO % (test code = 0.8 % 706-2) GRAN MAT x10^3(ANC) 4.53 10*3/uL 1.99-6.95 (test code = 9973767344) IMM GRAN x10^3 (test 0.04 10*3/uL 0-0.06 code = 8297362451) LYMPH x10^3 (test code 1.91 10*3/uL 1.09-3.23 = 731-0) MONO x10^3 (test code 0.54 10*3/uL 0.36-1.02 = 742-7) EOS x10^3 (test code = 0.09 10*3/uL 0.06-0.53 711-2) BASO x10^3 (test code 0.06 10*3/uL 0.01-0.09 = 704-7) Lab Interpretation Abnormal (test code = 21558-5) [facility]"
--- NOTE | 2021-08-05 13:15 | ER ---
Nurse's Notes [facility] Name: Karli Garcia Age: 55 yrs Sex: Male : 1965 Arrival Date: 08/05/2021 Time: 12:59 Bed Waiting Private MD: Diagnosis: Assessment: 08/05 13:15 Reassessment: pt states was leaving ED. vg1 ED Course: 12:59 Patient arrived in ED. am2 Administered Medications: No medications were administered Outcome: 13:15 Patient left the ED. vg1 Signatures: Kim Erazo am2 Christine Miranda, RN RN vg1
== END 2021-08-05 13:15 | disposition left against medical advice (07) ==
LOC: ER 12:09
DX: Z02.9 Encounter for administrative examinations, unspecified (principal)

== ENCOUNTER 2021-08-11 09:52 | Emergency (ER) | payer OTHER ==
--- OUTSIDE RECORDS SUMMARY | 2021-08-11 09:58 | XMS REPORT | Continuity of Care Document ---
:1965 Author Organization [facility] t Address [address] [place] [address] [address]. [address] [place] [address] Care Team Providers Name Role Phone Kandi [...] Number Effective Date Expiration Date Eric GARCIA [id number] 2005 ADMINISTRATION 00:00:00 MEDICARE PART A [id number] 2004 00:00:00 OUT OF STATE [place] [id number] 2021 00:00:00 Problems Condition Condition Condition Status Onset Resolution Last Treating Co mments Source Name Details Category Date Date Treatment Clinician Date No known No known Disease Unive rs active active ity of problems problems [facility] Allergies, Adverse Reactions, Alerts Allergy Allergy Status Severity Reaction(s) Onset Inactive Treating Comm ents Source Name Type Date Date Clinician NO KNOWN Allergy Active [facility] [place] [facility] NO KNOWN Drug Active Univers ALLERGIE Class ity of S [facility] Social History Social Habit Start Date Stop Date Quantity Comments Source Exposure to Yes University SARS-CoV-2 [facility] (event) Branch Tobacco use and 2020-03-18 2020-03-18 Never used Universit y of exposure 00:00:00 00:00:00 [facility] Alcohol intake 2020-03-18 2020-03-[address] [facility] 00:00:00 00:00:00 non-drinker of [facility] alcohol Branch (finding) Sex [birth year] [facility] 00:00:00 00:00:00 Smoking Status Start Date Stop Date Source Never smoker [facility] Unknown if ever smoked [facility] Medications Ordered Filled Start Stop Current Ordering [...] 03/16/21 at Branch 1815, MANUELA albuterol Yes [id number] 2{puff} Inhale 2 Univers 90 8-28 Puffs ity of mcg/actuati 00:00: every 4 [place] as on inhaler 00 (four) Medical hours as Branch needed for Wheezing or Shortness of Breath. benzonatate Yes [id number] 100mg Take 1 Univers 100 mg 8-28 capsule by ity of capsule 00:00: mouth 3 [place] 00 (three) Medical times Branch daily as needed for Cough. dextrometho Yes [id number] 10mL Take 10 mL Univers rphan-guaif 8-28 by mouth ity of enesin 00:00: every 6 [place] 10-100 mg/5 00 (six) Medical mL solution hours as Bran ch needed for Cough. ondansetron Yes [id number] 4mg Take 1 Univers 4 mg 8-28 tablet by ity of disintegrat 00:00: mouth [place] ing tablet 00 every 8 Medica l (eight) Branch hours as needed for Nausea and Vomiting (N/V). albuterol Yes [id number] 2{puff} Inhale 2 Univers 90 8-28 Puffs ity of mcg/actuati 00:00: every 4 [place] on inhaler 00 (four) Medical hours as Branch needed for Wheezing or Shortness of Breath. benzonatate Yes [id number] 100mg Take 1 Univers 100 mg 8-28 capsule by ity of capsule 00:00: mouth 3 [place] 00 (three) Medical times Branch daily as needed for Cough. dextrometho Yes [id number] 10mL Take 10 mL Univers rphan-guaif 8-28 by mouth ity of enesin 00:00: every 6 [place] 10-100 mg/5 00 (six) Medical mL solution hours as Bran ch needed for Cough. ondansetron Yes [id number] 4mg Take 1 Univers 4 mg 8-28 tablet by ity of disintegrat 00:00: mouth [place] ing tablet 00 every 8 Medica l (eight) Branch hours as needed for Nausea and Vomiting (N/V). aspirin 2019- No 324mg 324 mg, Unive rs chewable 01-11- Oral, ity of tablet 324 21:30: 20:46 ONCE, 1 [place] as mg 00 :00 dose, [facility] Medical 01/12/20 at Branch 1630, MANUELA traMADol 50 2019-0 2020- No [id number] 50mg Take 1 Univers mg tablet 6- 06-14 tablet by ity of 00:00: 04:59 mouth [place] 00 :00 every 6 Medical (six) Branch hours as needed for Pain (scale 7-10) for up to 3 days. traMADol 50 2020-0 Yes [id number] 50mg Take 1 Univers mg tablet 2-10 tablet by ity o f 00:00: mouth [place] 00 every 6 Medical (six) Branch hours as needed for Pain (scale 7-10). traMADol 50 2020-0 Yes [id number] 50mg Take 1 Univers mg tablet 2-10 tablet by ity o f 00:00: mouth [place] 00 every 6 Medical (six) Branch hours as needed for Pain (scale 7-10). traMADol 50 2020-0 Yes [id number] 50mg Take 1 Univers mg tablet 2-10 tablet by ity o f 00:00: mouth [place] 00 every 6 Medical (six) Branch hours as needed for Pain (scale 7-10). traMADol 50 2020-0 Yes [id number] 50mg Take 1 Univers mg tablet 2-10 tablet by ity o f 00:00: mouth [place] 00 every 6 Medical (six) Branch hours as needed for Pain (scale 7-10). traMADol 50 2020-0 Yes [id number] 50mg Take 1 Univers mg tablet 2-10 tablet by ity o f 00:00: mouth [place] 00 every 6 Medical (six) Branch hours as needed for Pain (scale 7-10). traMADol 50 2020-0 Yes [id number] 50mg Take 1 Univers mg tablet 2-10 tablet by ity o f 00:00: mouth [place] 00 every 6 Medical (six) Branch hours as needed for Pain (scale 7-10). traMADol 50 2020-0 Yes [id number] 50mg Take 1 Univers mg tablet 2-10 tablet by ity o f 00:00: mouth [place] 00 every 6 Medical (six) Branch hours as needed for Pain (scale 7-10). traMADol 50 2020-0 Yes [id number] 50mg Take 1 Univers mg tablet 2-10 tablet by ity o f 00:00: mouth [place] 00 every 6 Medical (six) Branch hours as needed for Pain (scale 7-10). traMADol 50 2020-0 Yes [id number] 50mg Take 1 Univers mg tablet 2-10 tablet by ity o f 00:00: mouth [place] 00 every 6 Medical (six) Branch hours as needed for Pain (scale 7-10). traMADol 50 2020-0 Yes [id number] 50mg Take 1 Univers mg tablet 2-10 tablet by ity o f 00:00: mouth [place] 00 every 6 Medical (six) Branch hours as needed for Pain (scale 7-10). traMADol 50 2020-0 Yes [id number] 50mg Take 1 Univers mg tablet 2-10 tablet by ity o f 00:00: mouth [place] 00 every 6 Medical (six) Branch hours as needed for Pain (scale 7-10). acetaminoph 2020-0 Yes [id number] 1{tbl} Take 1 Univers en-codeine 1-03 07 tablet by ity of (TYLENOL-CO 00:00: mouth [place] DEINE #3) 00 every 6 Medical 300-30 mg (six) Branch tablet hours as needed (pain unrelieved by Ibuprofen) . ibuprofen 2020-0 Yes [id number] 600mg Take 1 Univers 600 mg 1-03 07 tablet by ity of tablet 00:00: mouth [place] 00 every 6 Medical (six) Branch hours as needed for Pain (scale 1-3). cyclobenzap 2020-0 Yes [id number] 5mg Take 1 Univers rine 5 mg 1-03 07 tablet by ity o f tablet 00:00: mouth 3 [place] 00 (three) Medical times Branch daily as needed for Muscle Spasms. acetaminoph 2020-0 Yes [id number] 1{tbl} Take 1 Univers en-codeine 1-03 07 tablet by ity of (TYLENOL-CO 00:00: mouth [place] DEINE #3) 00 every 6 Medical 300-30 mg (six) Branch tablet hours as needed (pain unrelieved by Ibuprofen) . ibuprofen 2020-0 Yes [id number] 600mg Take 1 Univers 600 mg 1-03 07 tablet by ity of tablet 00:00: mouth [place] 00 every 6 Medical (six) Branch hours as needed for Pain (scale 1-3). cyclobenzap 2020-0 Yes [id number] 5mg Take 1 Univers rine 5 mg 1-03 07 tablet by ity o f tablet 00:00: mouth 3 [place] 00 (three) Medical times Branch daily as needed for Muscle Spasms. acetaminoph 2020-0 Yes [id number] 1{tbl} Take 1 Univers en-codeine 1-03 07 tablet by ity of (TYLENOL-CO 00:00: mouth [place] DEINE #3) 00 every 6 Medical 300-30 mg (six) Branch tablet hours as needed (pain unrelieved by Ibuprofen) . ibuprofen 2020-0 Yes [id number] 600mg Take 1 Univers 600 mg 1-03 07 tablet by ity of tablet 00:00: mouth [place] 00 every 6 Medical (six) Branch hours as needed for Pain (scale 1-3). cyclobenzap 2020-0 Yes [id number] 5mg Take 1 Univers rine 5 mg 1-03 07 tablet by ity o f tablet 00:00: mouth 3 [place] 00 (three) Medical times Branch daily as needed for Muscle Spasms. acetaminoph 2020-0 Yes [id number] 1{tbl} Take 1 Univers en-codeine 1-03 07 tablet by ity of (TYLENOL-CO 00:00: mouth [place] DEINE #3) 00 every 6 Medical 300-30 mg (six) Branch tablet hours as needed (pain unrelieved by Ibuprofen) . ibuprofen 2020-0 Yes [id number] 600mg Take 1 Univers 600 mg 1-03 07 tablet by ity of tablet 00:00: mouth [place] 00 every 6 Medical (six) Branch hours as needed for Pain (scale 1-3). cyclobenzap 2020-0 Yes [id number] 5mg Take 1 Univers rine 5 mg 1-03 07 tablet by ity o f tablet 00:00: mouth 3 [place] 00 (three) Medical times Branch daily as needed for Muscle Spasms. acetaminoph 2020-0 Yes [id number] 1{tbl} Take 1 Univers en-codeine 1-03 07 tablet by ity of (TYLENOL-CO 00:00: mouth [place] DEINE #3) 00 every 6 Medical 300-30 mg (six) Branch tablet hours as needed (pain unrelieved by Ibuprofen) . ibuprofen 2020-0 Yes [id number] 600mg Take 1 Univers 600 mg 1-03 07 tablet by ity of tablet 00:00: mouth [place] 00 every 6 Medical (six) Branch hours as needed for Pain (scale 1-3). cyclobenzap 2020-0 Yes [id number] 5mg Take 1 Univers rine 5 mg 1-03 07 tablet by ity o f tablet 00:00: mouth 3 [place] 00 (three) Medical times Branch daily as needed for Muscle Spasms. acetaminoph 2020-0 Yes [id number] 1{tbl} Take 1 Univers en-codeine 1-03 07 tablet by ity of (TYLENOL-CO 00:00: mouth [place] DEINE #3) 00 every 6 Medical 300-30 mg (six) Branch tablet hours as needed (pain unrelieved by Ibuprofen) . ibuprofen 2020-0 Yes [id number] 600mg Take 1 Univers 600 mg 1-03 07 tablet by ity of tablet 00:00: mouth [place] 00 every 6 Medical (six) Branch hours as needed for Pain (scale 1-3). cyclobenzap 2020-0 Yes [id number] 5mg Take 1 Univers rine 5 mg 1-03 07 tablet by ity o f tablet 00:00: mouth 3 [place] 00 (three) Medical times Branch daily as needed for Muscle Spasms. acetaminoph 2020-0 Yes [id number] 1{tbl} Take 1 Univers en-codeine 1-03 07 tablet by ity of (TYLENOL-CO 00:00: mouth [place] DEINE #3) 00 every 6 Medical 300-30 mg (six) Branch tablet hours as needed (pain unrelieved by Ibuprofen) . ibuprofen 2020-0 Yes [id number] 600mg Take 1 Univers 600 mg 1-03 07 tablet by ity of tablet 00:00: mouth [place] 00 every 6 Medical (six) Branch hours as needed for Pain (scale 1-3). cyclobenzap 2020-0 Yes [id number] 5mg Take 1 Univers rine 5 mg 1-03 07 tablet by ity o f tablet 00:00: mouth 3 [place] 00 (three) Medical times Branch daily as needed for Muscle Spasms. acetaminoph 2020-0 Yes [id number] 1{tbl} Take 1 Univers en-codeine 1-03 07 tablet by ity of (TYLENOL-CO 00:00: mouth [place] DEINE #3) 00 every 6 Medical 300-30 mg (six) Branch tablet hours as needed (pain unrelieved by Ibuprofen) . ibuprofen 2020-0 Yes [id number] 600mg Take 1 Univers 600 mg 1-03 07 tablet by ity of tablet 00:00: mouth [place] 00 every 6 Medical (six) Branch hours as needed for Pain (scale 1-3). cyclobenzap 2020-0 Yes [id number] 5mg Take 1 Univers rine 5 mg 1-03 07 tablet by ity o f tablet 00:00: mouth 3 [place] 00 (three) Medical times Branch daily as needed for Muscle Spasms. acetaminoph 2020-0 Yes [id number] 1{tbl} Take 1 Univers en-codeine 1-03 07 tablet by ity of (TYLENOL-CO 00:00: mouth [place] DEINE #3) 00 every 6 Medical 300-30 mg (six) Branch tablet hours as needed (pain unrelieved by Ibuprofen) . ibuprofen 2020-0 Yes [id number] 600mg Take 1 Univers 600 mg 1-03 07 tablet by ity of tablet 00:00: mouth [place] 00 every 6 Medical (six) Branch hours as needed for Pain (scale 1-3). cyclobenzap 2020-0 Yes [id number] 5mg Take 1 Univers rine 5 mg 1-03 07 tablet by ity o f tablet 00:00: mouth 3 [place] 00 (three) Medical times Branch daily as needed for Muscle Spasms. acetaminoph 2020-0 Yes [id number] 1{tbl} Take 1 Univers en-codeine 1-03 07 tablet by ity of (TYLENOL-CO 00:00: mouth [place] DEINE #3) 00 every 6 Medical 300-30 mg (six) Branch tablet hours as needed (pain unrelieved by Ibuprofen) . ibuprofen 2020-0 Yes [id number] 600mg Take 1 Univers 600 mg 1-03 07 tablet by ity of tablet 00:00: mouth [place] 00 every 6 Medical (six) Branch hours as needed for Pain (scale 1-3). cyclobenzap 2020-0 Yes [id number] 5mg Take 1 Univers rine 5 mg 1-03 07 tablet by ity o f tablet 00:00: mouth 3 [place] 00 (three) Medical times Branch daily as needed for Muscle Spasms. acetaminoph 2020-0 Yes [id number] 1{tbl} Take 1 Univers en-codeine 1-03 07 tablet by ity of (TYLENOL-CO 00:00: mouth [place] DEINE #3) 00 every 6 Medical 300-30 mg (six) Branch tablet hours as needed (pain unrelieved by Ibuprofen) . ibuprofen 2020-0 Yes [id number] 600mg Take 1 Univers 600 mg 1-03 07 tablet by ity of tablet 00:00: mouth [place] 00 every 6 Medical (six) Branch hours as needed for Pain (scale 1-3). cyclobenzap 2020-0 Yes [id number] 5mg Take 1 Univers rine 5 mg [...] Medical hours as Branch needed. lisinopril Yes [id number] 5mg Take 1 U nivers (PRINIVIL) 8-26 tablet by ity of 5 mg tablet 00:00: mouth [place] 00 daily. Medical Branch lisinopril Yes [id number] 5mg Take 1 U nivers (PRINIVIL) 8-26 tablet by ity of 5 mg tablet 00:00: mouth [place] 00 daily. Medical Branch lisinopril Yes [id number] 5mg Take 1 U nivers (PRINIVIL) 8-26 tablet by ity of 5 mg tablet 00:00: mouth [place] 00 daily. Medical Branch lisinopril Yes [id number] 5mg Take 1 U nivers (PRINIVIL) 8-26 tablet by ity of 5 mg tablet 00:00: mouth [place] 00 daily. Medical Branch lisinopril Yes [id number] 5mg Take 1 U nivers (PRINIVIL) 8-26 tablet by ity of 5 mg tablet 00:00: mouth [place] 00 daily. Medical Branch lisinopril Yes [id number] 5mg Take 1 U nivers (PRINIVIL) 8-26 tablet by ity of 5 mg tablet 00:00: mouth [place] 00 daily. Medical Branch lisinopril Yes [id number] 5mg Take 1 U nivers (PRINIVIL) 8-26 tablet by ity of 5 mg tablet 00:00: mouth [place] 00 daily. Medical Branch lisinopril Yes [id number] 5mg Take 1 U nivers (PRINIVIL) 8-26 tablet by ity of 5 mg tablet 00:00: mouth [place] 00 daily. Medical Branch lisinopril 2019-0 Yes [id number] 5mg Take 1 U nivers (PRINIVIL) 8-26 tablet by ity of 5 mg tablet 00:00: mouth [place] 00 daily. Medical Branch lisinopril 2019-0 Yes [id number] 5mg Take 1 U nivers (PRINIVIL) 8-26 tablet by ity of 5 mg tablet 00:00: mouth [place] 00 daily. Medical Branch lisinopril 2018-0 Yes [id number] 5mg Take 1 U nivers (PRINIVIL) 8-26 tablet by ity of 5 mg tablet 00:00: mouth [place] 00 daily. Medical Branch lisinopril 2018-0 Yes [id number] 5mg Take 1 U nivers (PRINIVIL) 8-26 tablet by ity of 5 mg tablet 00:00: mouth [place] 00 daily. Medical Branch lisinopril 2018-0 Yes [id number] 5mg Take 1 U nivers (PRINIVIL) 8-26 tablet by ity of 5 mg tablet 00:00: mouth [place] 00 daily. Medical Branch lisinopril 0 Yes [id number] 5mg Take 1 U nivers (PRINIVIL) 8-26 tablet by ity of 5 mg tablet 00:00: mouth [place] 00 daily. Medical Branch traMADOL 50 2019-0 Yes 50mg Take 50 mg Univers mg tablet 1-18 by mouth ity of 14:58: every 6 [place] [address] (six) Medical hours as Branch needed. traMADOL 50 2019-0 Yes 50mg Take 50 mg Univers mg tablet 1-18 by mouth ity of 14:58: every 6 [place] [address] (six) Medical hours as Branch needed. traMADOL 50 2019-0 Yes 50mg Take 50 mg Univers mg tablet 1-18 by mouth ity of 14:58: every 6 [place] [address] (six) Medical hours as Branch needed. traMADOL 50 2019-0 Yes 50mg Take 50 mg Univers mg tablet 1-18 by mouth ity of 14:58: every 6 [place] [address] (six) Medical hours as Branch needed. traMADOL 50 2019-0 Yes 50mg Take 50 mg Univers mg tablet 1-18 by mouth ity of 14:58: every 6 [place] [address] (six) Medical hours as Branch needed. azithromyci [...] spacing 7-08 directed ity of device 00:00: [place] (BREATHERIT 00 Medical E Branch SPACER-MASK ,ADULT) inhalationa 2017-0 Yes Use as Univ ers l spacing 7-08 directed ity of device 00:00: [place] (BREATHERIT 00 Medical E Branch SPACER-MASK ,ADULT) inhalationa 2017-0 Yes Use as Univ ers l spacing 7-08 directed ity of device 00:00: [place] (BREATHERIT 00 Medical E Branch SPACER-MASK ,ADULT) inhalationa 2017-0 Yes Use as Univ ers l spacing 7-08 directed ity of device 00:00: [place] (BREATHERIT 00 Medical E Branch SPACER-MASK ,ADULT) inhalationa 2017-0 Yes Use as Univ ers l spacing 7-08 directed ity of device 00:00: [place] (BREATHERIT 00 Medical E Branch SPACER-MASK ,ADULT) [...] spacing 7-08 directed ity of device 00:00: [place] (BREATHERIT 00 Medical E Branch SPACER-MASK ,ADULT) albuterol 2016-0 2019- No 2{puff} Inhale 2 Univers 90 7-08 08-26 Puffs ity of mcg/actuati 00:00: 00:00 every 4 [place] on inhaler 00 :00 (four) Medical hours as Branch needed for Wheezing or Shortness of Breath. albuterol 2019- No 2{puff} Inhale 2 [place] [address] 01-24 08-26 Puffs ity of mcg/actuati 00:00: [...] Body temperature 2021-03-17 00:10:31 38.33 [facility] 2021-03-17 00:07:12 156 mm[Hg] Univer sity of [facility] Diastolic blood 2021-03-17 00:07:12 89 mm[Hg] Unive rsity of pressure [facility] Heart rate 2021-03-17 00:07:12 81 /min [facility] Respiratory rate 2021-03-17 00:07:12 18 /min [facility] Oxygen saturation in 2021-03-17 00:07:12 98 /min [facility] Arterial blood by [facility] Pulse oximetry Branch Body height 2021-03-16 21:38:00 162.6 cm [facility] Body weight 2021-03-16 21:38:00 72.576 kg [facility] BMI 2021-03-16 21:38:00 27.46 kg/m2 [facility] Systolic blood 2020-03-18 21:18:00 159 mm[Hg] Univer sity of pressure [place] [facility] Diastolic blood 2020-03-18 21:18:00 112 mm[Hg] Unive rsity of pressure [place] [facility] Heart rate 2020-03-18 21:18:00 76 /min Universi ty of [place] [facility] Respiratory rate 2020-03-18 21:18:00 16 /min Univ ersity of [place] [facility] Body weight 2020-03-18 21:18:00 72.576 kg Universi ty of [place] [facility] BMI 2020-03-18 21:18:00 25.82 kg/m2 Universi ty of [place] [facility] Oxygen saturation in 2020-03-18 21:18:00 98 /min University of Arterial blood by [facility] Pulse oximetry Branch Systolic blood 2020-01-12 23:00:00 154 mm[Hg] Univer sity of pressure [place] [facility] Diastolic blood 2020-01-12 23:00:00 104 mm[Hg] Unive rsity of pressure [place] [facility] Heart rate 2020-01-12 23:00:00 71 /min Universi ty of [place] [facility] Respiratory rate 2020-01-12 23:00:00 19 /min Univ ersity of [place] [facility] Oxygen saturation in 2020-01-12 23:00:00 97 /min University of Arterial blood by [place] [employer] [facility] Pulse oximetry Branch Body temperature 2020-01-12 20:09:00 37.06 Jaqui Univ ersity of [place] [facility] Body height 2020-01-12 20:09:00 167.6 cm Universi ty of [place] [facility] Body weight 2020-01-12 20:09:00 72.576 kg Universi ty of [place] [facility] BMI 2020-01-12 20:09:00 25.82 kg/m2 Universi ty of [place] [facility] Systolic blood 2019-12-28 19:19:00 171 mm[Hg] Univer sity of pressure [place] [facility] Diastolic blood 2019-12-28 19:19:00 103 mm[Hg] Unive rsity of pressure [place] [facility] Heart rate 2019-12-28 19:19:00 76 /min Universi ty of [place] [facility] Body temperature 2019-12-28 19:19:00 35.83 Jaqui Univ ersity of [place] [facility] Respiratory rate 2019-12-28 19:19:00 16 /min Univ ersity of [place] [facility] Body height 2019-12-28 19:19:00 162.6 cm [facility]i ty [facility] [place] [facility] Body weight 2019-12-28 19:19:00 72.576 kg Universi ty of [place] [facility] BMI 2019-12-28 19:19:00 27.46 kg/m2 Universi ty of [place] [facility] Oxygen saturation in 2019-12-28 19:19:00 97 /min University of Arterial blood by [place] [employer] [facility] Pulse oximetry Branch Systolic blood 2019-08-29 21:00:00 158 mm[Hg] Univer sity of pressure [place] [facility] Diastolic blood 2019-08-29 21:00:00 89 mm[Hg] Unive rsity of pressure [place] [facility] Heart rate 2019-08-29 21:00:00 75 /min Universi ty [facility] [place] [facility] Respiratory rate 2019-08-29 21:00:00 18 /min Univ ersity of [place] [facility] Oxygen saturation in 2019-08-29 21:00:00 100 /min University of Arterial blood by [employer] Pulse oximetry Branch Body temperature 2019-08-29 19:07:00 36.67 Jaqui Univ ersity of [place] [facility] Body weight 2019-08-29 19:07:00 70.308 kg [facility]i ty [facility] [place] [facility] BMI 2019-08-29 19:07:00 26.61 kg/m2 [facility]i ty [facility] [place] [facility] Systolic blood 2019-03-14 19:30:00 148 mm[Hg] Univer sity of pressure [place] [facility] Diastolic blood 2019-03-14 19:30:00 92 mm[Hg] Unive rsity of pressure [place] [facility] Heart rate 2019-03-14 19:27:00 69 [...] 98 /min University of Arterial blood by [employer] Pulse oximetry Branch Systolic blood 2019-03-14 14:45:00 163 mm[Hg] Univer sity of pressure [facility] Diastolic blood 2019-03-14 14:45:00 94 mm[Hg] Moniee rsity of pressure [facility] Heart rate 2019-03-14 14:43:00 66 /min [facility] Respiratory rate 2019-03-14 14:43:00 19 /min [facility] Body height 2019-03-14 14:43:00 162.6 cm [facility] Body weight 2019-03-14 14:43:00 67.223 kg [facility] BMI 2019-03-14 14:43:00 25.44 kg/m2 [facility] Oxygen saturation in 2019-03-14 14:43:00 99 /min [facility] Arterial blood by [facility] Pulse oximetry Branch Procedures Procedure Date / Time Performing Clinician Source Performed COVID-19 (ID NOW RAPID 2021-03-16 21:51:00 [facility] TESTING) Medical Branch NOTICE OF PRIVACY 2021-03-16 21:38:22 Doctor Unassigned, No [facility] Branch CONSENT/REFUSAL FOR 2021-03-16 21:32:43 Doctor Unassigned, No Un iversity of [place] DIAGNOSIS AND TREATMENT Name [facility] Branch NOTICE OF PRIVACY 2020-03-18 21:10:21 Doctor Unassigned, No [facility] Name Medical Branch CONSENT/REFUSAL FOR 2020-03-18 21:09:58 Doctor Unassigned, No [facility] [place] [facility] Name [facility] TROPONIN I 2020-01-12 23:00:00 Milton Gold [facility] [place] XR CHEST 1 VW 2020-01-12 21:05:58 Milton Gold [facility] [place] EKG-12 LEAD 2020-01-12 20:52:24 Andrea Caicedo o f [facility] TROPONIN I 2020-01-12 20:51:00 Milton Gold [facility] [place] COMP. METABOLIC PANEL 2020-01-12 20:51:00 Milton Gold [facility] ([id number]) [facility] CBC WITH DIFFERENTIAL 2020-01-12 20:51:00 Milton Gold Unive [facility] EKG-12 LEAD 2020-01-12 20:28:04 Milton Gold [facility] [place] NOTICE OF PRIVACY 2020-01-12 20:15:02 Doctor Unassigned, No Univ ersity of [facility] Medical Branch CONSENT/REFUSAL FOR 2020-01-12 19:58:18 Doctor Unassigned, No Un [facility]ity of [place] DIAGNOSIS AND TREATMENT Name Medical Branch NOTICE OF PRIVACY 2019-12-28 19:11:43 Doctor Unassigned, No Univ ersity of [facility] Medical Branch CONSENT/REFUSAL FOR 2019-12-28 19:11:31 Doctor Unassigned, No Un [facility] [place] DIAGNOSIS [facility] TREATMENT Name Medical Branch CONSENT/REFUSAL FOR 2019-08-29 19:07:07 Doctor Unassigned, No Un [facility]ity of [place] DIAGNOSIS AND TREATMENT [employer] [facility] [employer] [facility] Medical Branch AUTHORIZATION FOR 2019-03-01 05:01:00 Doctor Unassigned, No [facility] [place] [facility] Medical Branch ASSIGNMENT OF BENEFITS 2019-02-17 14:48:20 Doctor Unassigned, No [facility] Plan of Care Planned Activity Planned Date Details Comments Source Future Scheduled Test COVID-19 VACCINE (1) [facility] [code = COVID-19 VACCINE (1)] Future Scheduled Test COLONOSCOPY SCREENING [facility] [code = COLONOSCOPY SCREENING] Future Scheduled Test SHINGLES VACCINES (#1) [facility] [code = SHINGLES VACCINES (#1)] Future Scheduled Test INFLUENZA VACCINE [code [facility] = INFLUENZA VACCINE] Encounters Start End Encounter Admission Attending Care Care Encounter Source Date/Time Date/Time Type Type Clinicians Facility Department ID 2021-05-20 Emergency [facility] [id number] Univers 18:47:20 ity [facility] [place] [facility] 2021-05-17 Emergency [facility] [id number] Univers 14:51:46 ity [facility] [place] [facility] 2021-05-17 Emergency [facility] [id number] [facility]IN [facility] [id number] [facility] 17:21:00 BURAK Med 2021-03-16 2021-03-16 [facility] 1.2.840.114 [id number] Univers 16:47:00 19:11:00 Jose Walker Shila 350.1.13.10 i ty of [place] 4.2.7.2.686 [facility] [phone] [address] 2021-03-16 2021-03-16 Orders Doctor RUSSEL 1.2.840.114 [id number] Univers 00:00:00 00:00:00 Only Unassigned, YOSI 350.1.13.10 ity of [facility] 4.2.7.2.686 Josse as [phone] [address] 2020-03-18 2020-03-18 Emergency [facility] 1.2.840.114 [id number] Univers 16:20:00 17:11:00 Carmenza Fuchs 350.1.13.10 i ty of [place] 4.2.7.2.686 [facility] [phone] [address] 2020-03-18 2020-03-18 Orders Doctor GOODE 1.2.840.114 [id number] Univers 00:00:00 00:00:00 Only Unassigned, YOSI 350.1.13.10 ity of [facility] 4.2.7.2.686 Josse as [phone] [address] 2020-01-12 2020-01-12 Emergency [facility] [id number] Univers 15:11:20 19:15:00 Milton Fuchs 350.1.13.10 ity of [place] 4.2.7.2.686 [facility] [id number] [address] 2020-01-12 2020-01-12 Emergency X [facility] ERT [id number] Univers 15:11:20 19:15:00 MILTON ortiz of [facility] 2020-01-12 2020-01-12 Orders Doctor GOODE 1.2.840.114 [id number] Univers 00:00:00 00:00:00 Only Unassigned, YOSI 350.1.13.10 ity of [facility] 4.2.7.2.686 Josse as [phone] [address] 2019-12-28 2019-12-28 Emergency [facility] 1.2.840.114 [id number] Univers 14:24:52 15:07:00 Maria Seth Shila 350.1.13.10 ity of [place] 4.2.7.2.686 [facility] [id number] [facility] [address] 2019-12-28 2019-12-28 Orders Doctor GOODE 1.2.840.114 [id number] Univers 00:00:00 00:00:00 Only Unassigned, YOSI 350.1.13.10 ity of [facility] 4.2.7.2.686 Josse as [phone] [place] [address] [address] 2019-08-29 2019-08-29 Emergency [facility] [id number] Univers 14:10:22 15:48:00 Agatha Ozuna Shila 350.1.13.10 i ty of [place] 4.2.7.2.686 [facility] [phone] [address] 2019-08-29 2019-08-29 Emergency [facility] [id number] Univers 14:10:22 15:48:00 AGATHA ity of [facility] 2019-07-22 2019-07-22 Emergency X [facility] ERT [id number] Univers 20:56:21 21:28:00 ity of [facility] 2019-03-14 2019-03-14 Office [facility] 1.2.840.114 [id number] Univers 14:10:26 21:22:26 Visit Belén Fuchs 350.1.13.10 ity of [place] 4.2.7.2.686 [place] [phone] Wi dicme nal 059 [facility] 2019-03-14 2019-03-14 Office [facility] 1.2.840.114 [id number] Univers 09:23:01 10:11:35 Visit Dylan Fuchs 350.1.13.10 i ty of [place].2.7.2.[place] [phone] Wi dical nal 085 [facility] 2019-03-01 2019-03-01 Orders Doctor GOODE 1.2.840.114 [id number] Univers 00:00:00 00:00:00 Only Unassigned, YOSI 350.1.13.10 ity of [facility] 4.2.7.2.686 Josse as [phone] [address] 2019-02-21 2019-02-21 Case Camila [facility] 1.2.840.114 [id number] Univers 00:00:00 00:00:00 Management Dylan Mcclellandton 350.1.13.10 ity of [place].2.[place].2.[place] [phone] [address] 2019-02-21 2019-02-21 Rosemary Jensen [facility] 1.2.388.006 [id number] Univers 00:00:00 00:00:00 Dylan Fuchs 350.1.13.10 i ty of [place] 4.2.7.2.686 [place] [phone] [address] 2019-02-17 2019-02-17 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 10 ity of [place] 4.2.7.2.686 [place] [id number] [address] 2019-02-17 2019-02-17 Orders Doctor RUSSEL 1.2.840.114 [id number] Univers 00:00:00 00:00:00 Only Unassigned, YOSI 350.1.13.10 ity of [place] [facility] 4.2.7.2.686 Josse as [phone] [address] Results Test Description Test Time Test Comments Results Result Comments Source POCT-GLUCOSE METER 2021-04-04 08:15:36 Test Item Value Reference Range Interpretation Comme [facility] POC-GLUCOSE METER (BESCAR) 242 mg/dL 70-110 H : TESTED AT [facility] [address] [facility] (test code = 1538) MARBIN Schmidt, 46567: Photocopying Equipment Mechanic/Techni mati ID = [id number] for KARLOS CUELLO COMPREHENSIVE METABOLIC [id number] 06:25:51 Test Item Value Reference Range Interpretation [...] S NOT APPLICABLE FOR DIALYSIS PATIEN TS. Photocopying Equipment Mechanic ID - RIO GPOCT-GLUCOSE [id number] 21:44:08 Test Item Value Reference Range Interpretation Comments POC-GLUCOSE METER 142 mg/dL 70-110 H : TESTED A T [facility] 6720 (MicroTransponder) (test code = [facility] [employer] [facility], 1538) 11312: Photocopying Equipment Mechanic/Techni mati ID = [id number] for POOJA GARRETT POCT-GLUCOSE [id number] 17:26:09 Test Item Value Reference Range Interpretation Comments POC-GLUCOSE METER 73 mg/dL 70-110 : TESTED A T [facility] 6720 (MicroTransponder) (test code = [facility] [employer] [facility], 1538) 70029: Photocopying Equipment Mechanic/Techni mati ID = [id number] for Will iams, Areiona POCT-GLUCOSE [id number] 11:53:01 Test Item Value Reference Range Interpretation Comments POC-GLUCOSE METER 76 mg/dL 70-110 : TESTED A T [facility] 6720 (BEAKER) (test code = [place]E Ozuna [facility], 1538) 05003: Photocopying Equipment Mechanic/Techni mati ID = [id number] for Will iams, Areiona HEMOGLOBIN [id number] 07:46:10 Test Item Value Reference Range Interpretation Comments HEMOGLOBIN A1C (BEAKER) (test code = 6.7 % 4.3-6.1 H 368) POCT-GLUCOSE [id number] 07:30:32 Test Item Value Reference Range Interpretation Comments POC-GLUCOSE METER 75 mg/dL 70-110 : TESTED A T [facility] 6720 (BEAKER) (test code = [place] Ozuna [facility], 1538) 47269: Photocopying Equipment Mechanic/Techni mati ID = [id number] for Will ia, Areiona HIV-1 ANTIGEN WITH HIV-1/2 [id number] 06:28:29 Test Item Value Reference Range Interpretation Comments HIV-1 ANTIGEN WITH HIV 1\\T\\2 Nonreactive Nonreactive ANTIBODY (2) (BEAKER) (test code = 2586) Photocopying Equipment Mechanic ID - TAVON MHEPATITIS PANEL, [id number] 06:28:28 Test Item Value Reference Range Interpretation Comments HEPATITIS A IGM ANTIBODY (BEAKER) Nonreactive Nonreactive (test code = 498) HEPATITIS B CORE IGM ANTIBODY Nonreactive Nonreactive (BEAKER) (test code = 645) HEPATITIS C ANTIBODY (BEAKER) Nonreactive Nonreactive (test code = 367) HEPATITIS B SURFACE ANTIGEN (2) Nonreactive Nonreactive (BEAKER) (test code = 2585) Photocopying Equipment Mechanic ID - TAVON MCOMPREHENSIVE METABOLIC [id number] 05:49:27 Test Item Value Reference Range Interpretation [...] S NOT APPLICABLE FOR DIALYSIS PATIEN TS. Photocopying Equipment Mechanic ID - TAVON MPOCT-GLUCOSE [id number] 21:24:03 Test Item Value Reference Range Interpretation Comments POC-GLUCOSE METER 89 mg/dL 70-110 : TESTED A T [facility] 6720 (BEAKER) (test code = [facility], 1538) 90845: Photocopying Equipment Mechanic/Techni mati ID = [id number] for BJORN SULTANA TRACY POCT-GLUCOSE [id number] 17:40:28 Test Item Value Reference Range Interpretation Comments POC-GLUCOSE METER 155 mg/dL 70-110 H : TESTED A T [facility] 6720 (BEAKER) (test code = [facility], 1538) 01448: Photocopying Equipment Mechanic/Techni mati ID = [id number] for Wi lliams, Areiona POCT-GLUCOSE [id number] 17:01:47 Test Item Value Reference Range Interpretation Comments POC-GLUCOSE METER 65 mg/dL 70-110 L : TESTED A T [facility] 6720 (BEAKER) (test code = [facility], 1538) 00835: Photocopying Equipment Mechanic/Techni mati ID = [id number] for Fito tucker, Areiona POCT-GLUCOSE [id number] 12:39:04 Test Item Value Reference Range Interpretation Comments POC-GLUCOSE METER 155 mg/dL 70-110 H : TESTED A T [facility] 6720 (BEAKER) (test code = [facility], 1538) 72896: Photocopying Equipment Mechanic/Techni mati ID = [id number] for Nolberto lliams, Areiona POCT-GLUCOSE [id number] 08:39:54 Test Item Value Reference Range Interpretation Comments POC-GLUCOSE METER 82 mg/dL 70-110 : TESTED A T [facility] 6720 (BEAKER) (test code = [facility], 1538) 69954: Photocopying Equipment Mechanic/Techni mati ID = [id number] for Rina z (contract)Gordy COMPREHENSIVE METABOLIC [id number] 05:28:52 Test Item Value Reference Range Interpretation [...] S NOT APPLICABLE FOR DIALYSIS PATIEN TS. Photocopying Equipment Mechanic ID - NAYELI [id number] 05:28:52 Test Item Value Reference Range Interpretation Comments MAGNESIUM (BEAKER) (test code = 2.2 mg/dL 1.6-2.6 627) Photocopying Equipment Mechanic ID - NAYELI WCBC (HEMOGRAM ONLY)2021-04-02 04:48:38 [...] 0-0 (BEAKER) (test code = 413) POCT-GLUCOSE [id number] 16:52:32 Test Item Value Reference Range Interpretation Comments POC-GLUCOSE METER 140 mg/dL 70-110 H : TESTED A T [facility] 6720 (BEAKER) (test code [facility], = 1538) 91374: Photocopying Equipment Mechanic/Techni mati ID = [id number] for Tim Burr C-REACTIVE [id number] 11:34:46 Test Item Value Reference Range Interpretation Comments C-REACTIVE PROTEIN (BEAKER) (test 1.16 mg/dL 0.00-0.50 H code = 676) Photocopying Equipment Mechanic ID - EMERSONPOCT-GLUCOSE [id number] 11:33:45 Test Item Value Reference Range Interpretation Comments POC-GLUCOSE METER 132 mg/dL 70-110 H : TESTED A T [facility] 6720 (BEAKER) (test code [facility], = 1538) 04828: Photocopying Equipment Mechanic/Techni mati ID = [id number] for Tim Burr [id number] 10:04:08 Test Item Value Reference Range Interpretation Comments MAGNESIUM (BEAKER) 2.1 mg/dL 1.6-2.6 Specimen slightly (test code = 627) hemolyzed Photocopying Equipment Mechanic ID - SHAY LCOMPREHENSIVE METABOLIC [id number] 10:04:08 Test Item Value Reference Range Interpretation [...] S NOT APPLICABLE FOR DIALYSIS PATIEN TS. Photocopying Equipment Mechanic ID - PIAYA LCBC (HEMOGRAM ONLY)2021-04-01 09:42:04 [...] 0-0 (BEAKER) (test code = 413) POCT-GLUCOSE [id number] 07:49:46 Test Item Value Reference Range Interpretation Comments POC-GLUCOSE METER 82 mg/dL 70-110 : TESTED A T [facility] 6720 (BEAKER) (test code [facility], = 1538) 18189: Photocopying Equipment Mechanic/Techni mati ID = [id number] for Tim Burr POCT-GLUCOSE [id number] 20:44:50 Test Item Value Reference Range Interpretation Comments POC-GLUCOSE METER 267 mg/dL 70-110 H : TESTED A T [facility] 6720 (BEAKER) (test code = [facility], 1538) 41522: Photocopying Equipment Mechanic/Techni mati ID = [id number] for ISSAC WOODY POCT-GLUCOSE [id number] 16:53:59 Test Item Value Reference Range Interpretation Comments POC-GLUCOSE METER 158 mg/dL 70-110 H : TESTED A T [facility] 6720 (BEAKER) (test code = [facility], 1538) 15513: Photocopying Equipment Mechanic/Techni mati ID = [id number] for JONESNATHEN JONATHAN RENDON [id number] 09:32:55 Test Item Value Reference Range Interpretation Comments MAGNESIUM (BEAKER) (test code = 2.2 mg/dL 1.6-2.6 627) Photocopying Equipment Mechanic ID Mariel AVERY FCOMPREHENSIVE METABOLIC [id number] 09:32:54 Test Item Value Reference Range Interpretation [...] S NOT APPLICABLE FOR DIALYSIS PATIEN TS. Photocopying Equipment Mechanic ID - [facility]NA [facility] (HEMOGRAM ONLY)2021-03-31 07:02:05 Test Item Value Reference [...] 0-0 (BEAKER) (test code = 413) C-REACTIVE [id number] 08:12:45 Test Item Value Reference Range Interpretation Comments C-REACTIVE PROTEIN 3.30 mg/dL See_Comment H [Automat ed message] (BEAKER) (test code The syst em which = 676) generated this result transmitted ref erence range: <=1.00. The reference range was not used to interpr et this result as normal/abnormal . COMPREHENSIVE METABOLIC [id number] 05:28:48 Test Item Value Reference Range Interpretation [...] S NOT APPLICABLE FOR DIALYSIS PATIEN TS. Photocopying Equipment Mechanic ID - TAVON [id number] 05:28:48 Test Item Value Reference Range Interpretation Comments MAGNESIUM (BEAKER) (test code = 2.2 mg/dL 1.6-2.6 627) Photocopying Equipment Mechanic ID - TAVON MCBC (HEMOGRAM ONLY)2021-03-30 05:28:09 [...] WBC 0-0 (BEAKER) (test code = 413) [id number] 05:08:00 Test Item Value Reference Range Interpretation Comments MAGNESIUM (BEAKER) 2.2 mg/dL 1.6-2.6 Specimen slightly (test code = 627) hemolyzed Photocopying Equipment Mechanic ID - PIAYA LCOMPREHENSIVE METABOLIC [id number] 05:08:00 Test Item Value Reference Range Interpretation [...] S NOT APPLICABLE FOR DIALYSIS PATIEN TS. Photocopying Equipment Mechanic ID - PIAYA OMPREHENSIVE METABOLIC [id number] 04:58:00 Test Item Value Reference Range Interpretation [...] S NOT APPLICABLE FOR DIALYSIS PATIEN TS. Photocopying Equipment Mechanic ID - TAVON [id number] 04:58:00 Test Item Value Reference Range Interpretation Comments MAGNESIUM (BEAKER) (test code = 2.0 mg/dL 1.6-2.6 627) Photocopying Equipment Mechanic ID - TAVON MC-REACTIVE [id number] 04:58:00 Test Item Value Reference Range Interpretation Comments C-REACTIVE PROTEIN (BEAKER) (test 4.52 mg/dL 0.00-0.50 H code = 676) Photocopying Equipment Mechanic ID - TAVON MCBC (HEMOGRAM ONLY)2021-03-28 04:40:00 [...] (test code = 413) RAPID DRUG SCREEN, [id number] 13:38:00 Test Item Value Reference Range Interpretation [...] situations. Chain of custody not maintained. Some jhft-cmu-rvypmtd medications, as well as adulterants, may cause inaccurate results. Clinical correlation should be applied. A more comprehensivedrug screen or confirmation of a detected drug may be performed upon request.Photocopying Equipment Mechanic ID - SHAY Hummeljamey ID - [auto]COMPREHENSIVE METABOLIC [id number] 07:04:00 Test Item Value Reference Range Interpretation [...] S NOT APPLICABLE FOR DIALYSIS PATIEN TS. Photocopying Equipment Mechanic ID - PIAYA LCBC (HEMOGRAM ONLY)2021-03-27 05:26:00 [...] (BEAKER) (test code = 413) COMPREHENSIVE METABOLIC [id number] 05:11:00 Test Item Value Reference Range Interpretation [...] S NOT APPLICABLE FOR DIALYSIS PATIEN TS. Photocopying Equipment Mechanic ID - TAVON [id number] 05:11:00 Test Item Value Reference Range Interpretation Comments MAGNESIUM (BEAKER) (test code = 2.3 mg/dL 1.6-2.6 627) Photocopying Equipment Mechanic ID - TAVON MC-REACTIVE [id number] 05:11:00 Test Item Value Reference Range Interpretation Comments C-REACTIVE PROTEIN (BEAKER) (test 9.39 mg/dL 0.00-0.50 H code = 676) Photocopying Equipment Mechanic PRADEEP MONTES DE OCA MCBC (HEMOGRAM ONLY)2021-03-26 [...] (BEAKER) (test code = 413) COMPREHENSIVE METABOLIC [id number] 05:50:00 Test Item Value Reference Range Interpretation [...] S NOT APPLICABLE FOR DIALYSIS PATIEN TS. Photocopying Equipment Mechanic ID - [id number] 05:30:00 Test Item Value Reference Range Interpretation [...] 70 pg/mL 0-100 (test code = 700) Photocopying Equipment Mechanic ID - AABREANNEIDC-REACTIVE [id number] 12:28:00 Test Item Value Reference Range Interpretation Comments C-REACTIVE PROTEIN (BEAKER) (test 8.23 mg/dL 0.00-0.50 H code = 676) Photocopying Equipment Mechanic ID - [id number] 12:25:00 Test Item Value Reference Range Interpretation Comments PHOSPHORUS (BEAKER) 3.2 mg/dL 2.3-4.7 Specimen markedly (test code = 604) hemolyzed Photocopying Equipment Mechanic ID - Van, CHEST, 1 VIEW, NON [id number] 12:09:00Reason for exam:->hypoxiaShould this be performed at the bedside?->Yes [facility] 1965 Sex: [...] Verified Klever e/Time: 03/24/2021 12:09:06 Reading Location: [address] Consult Reading Room Electronicallysigned by: SYLWIA VALDEZ M.D. on 03/24/2021 12:09 PM COMPREHENSIVE METABOLIC [id number] 08:09:00 Test Item Value Reference Range Interpretation [...] S NOT APPLICABLE FOR DIALYSIS PATIEN TS. Photocopying Equipment Mechanic ID - DBCOMPREHENSIVE METABOLIC [id number] 06:14:00 Test Item Value Reference Range Interpretation [...] S NOT APPLICABLE FOR DIALYSIS PATIEN TS. Photocopying Equipment Mechanic ID - TAVON MCBC W/PLT COUNT & AUTO [id number] 05:23:00 Test Item Value Reference Range Interpretation [...] PERCENT (BEAKER) (test code = 2801) CHOLESTEROL, [id number] 09:48:00 Test Item Value Reference Range Interpretation Comments CHOLESTEROL (BEAKER) (test code = 110 mg/dL 631) Cholesterol Reference Range: Low Risk <200 Borderline 200-239 High Risk >240 Photocopying Equipment Mechanic ID - DBCBC W/PLT COUNT & AUTO [id number] 06:40:00 Test Item Value Reference Range Interpretation [...] (BEAKER) (test code = 2801) COMPREHENSIVE METABOLIC [id number] 06:32:00 Test Item Value Reference Range Interpretation [...] 1092) DATA TO CALCULA TE ESTIMATED GFR. Photocopying Equipment Mechanic ID - [id number] 06:28:00 Test Item Value Reference Range Interpretation Comments MAGNESIUM (BEAKER) (test code = 2.4 mg/dL 1.6-2.6 627) Photocopying Equipment Mechanic ID - DBLACTIC ACID, [id number] 05:23:00 Test Item Value Reference Range Interpretation Comments LACTATE BLOOD VENOUS (2) (BEAKER) 1.11 mmol/L 0.50-2.20 (test code = 2872) Photocopying Equipment Mechanic ID - DBRAD, CHEST, 1 VIEW, NON [id number] 04:43:00Reason for exam:- >covidShould this be performed at the bedside?->Yes [facility] : 1965 Sex: MFINAL REPORT INDICATION: covid COMPARISON: None TECHNIQUE: Single frontal view of the chest. IMPRESSION: Lungs and pleura: Hypoinflated lungs with moderately extensive bilateral peripheral lung opacities compatible with Covid 19 pneumonia. No effusion.Heart and mediastinum: Normal heart size. Unremarkable mediastinal contours.Osseous structures: No acute abnormality. Partially imaged cervical spine fusion hardware.Other: None. Signed: Maria De Jesus [facility] Verified Date/Time: 03/22/2021 04:43:09 -[id number] 19:24:00 Test Item Value Reference Range Interpretation [...] exclusion of thrombosis is within 95-100% range. PT/[id number] 19:22:00 Test Item Value Reference Range Interpretation [...] for patients with mechanical heart valves.COMPREHENSIVE METABOLIC [id number] 19:18:00 Test Item Value Reference Range Interpretation [...] 1092) DATA TO CALCULA TE ESTIMATED GFR. Photocopying Equipment Mechanic ID - DBHIGH SENSITIVITY TROPONIN [id number] 19:17:00 Test Item Value Reference Range Interpretation Comments HIGH SENSITIVITY 5 pg/ml See_Comment [Automated message] TROPONIN I (test code = The system which 6915414) generated this result transmitted ref erence range: <=35. Th e reference range was not used to interpr et this result as normal/abnormal . Photocopying Equipment Mechanic ID - DBThe [employer]CH[employer]ER STAT High Sensitivity Troponin-I results should be used in conjunctionwith other diagnostic information such as ECG, clinical observations and information, and patient symptoms to aid in the diagnosis of [place].C-REACTIVE [id number] 19:11:00 Test Item Value Reference Range Interpretation Comments C-REACTIVE PROTEIN (BEAKER) (test 31.92 mg/dL 0.00-0.50 H code = 676) Photocopying Equipment Mechanic ID - DBLACTIC ACID, [id number] 19:05:00 Test Item Value Reference Range Interpretation Comments LACTATE BLOOD VENOUS (2) (BEAKER) 1.44 mmol/L 0.50-2.20 (test code = 2872) Photocopying Equipment Mechanic ID - DBCBC (HEMOGRAM ONLY)2021-03-21 18:54:00 Test [...] Positive Not Detected A (test code = 68618-4) CATHERINE (test code = CATHERINE) ID NOW COVID-19 Assay is an isothermal nucleic acid amplification test intended for the qualitative detection of nucleic acid from SARS-CoV-2 viral RNA in nasopharyngeal (ICT TRAINER) specimens. It is used under Emergency Use [...] indicated. Lab Interpretation Abnormal (test code = 25914-1) [facility] NOW RAPID TESTING)2021-03-16 22:01:20 Test Item Value Reference Range Interpretation Comments SARS-CoV-2 Rapid ID NOW (test code = Positive Not Detected A 85069-1) CATHERINE (test code = CATHERINE) Lab Interpretation (test code = Abnormal 76713-5) [facility] [id number] 23:59:00 Test Item Value Reference Range Interpretation Comments TROPONIN I (test <0.012 See_Comment [Automated code = 7620237534) message] The system which generated this result [...] ? Lab Interpretation Normal (test code = 73074-0) [facility] CHEST 1 [id number] 22:22:50 No acute cardiopulmonary abnormality. Increasing prominence [...] reviewed this study and agree with theabove report.[facility] I 2020-01-12 21:26:00 Test Item Value Reference Range Interpretation Comments TROPONIN I (test <0.012 See_Comment [Automated code = 0419209208) message] The system which generated this result [...] ? Lab Interpretation Normal (test code = 16754-7) [facility]. MET[facility]OLIC PANEL (59476)2020-01-12 21:15:00 Test Item Value Reference Range Interpretation Comments NA (test code = 141 mmol/L 135-145 5554857315) K (test code = 3.9 mmol/L 3.5-5 3458395533) CL (test code = 105 mmol/L 98-108 8387542226) CO2 TOTAL (test code = 26 mmol/L 23-31 1779198969) AGAP (test code = 2-16 5912214861) BUN (test code = 20 mg/dL 7-23 7273291829) GLUCOSE (test code = 129 mg/dL 70-110 H 2629424008) CREATININE (test code = 0.86 mg/dL 0.6-1.25 1576778487) TOTAL BILI (test code = 0.4 mg/dL 0.1-1.1 8750378804) CALCIUM (test code = 9.5 mg/dL 8.6-10.6 8184635822) T PROTEIN (test code = 8.4 g/dL 6.3-8.2 H 7411377130) ALBUMIN (test code = 4.5 g/dL 3.5-5 6116585418) ALK PHOS (test code = 73 U/L 34-122 1809422628) ALTv (test code = 81 U/L 5-50 H 1742-6) AST(SGOT) (test code = 48 U/L 13-40 H 2486437747) eGFR Calculation mL/min/1.73m2 (Non-) (test code = 2995384434) eGFR Calculation mL/min/1.73m2 () (test code = 8744809568) CATHERINE (test code = CATHERINE) Association of [...] tests). Lab Interpretation Abnormal (test code = 86967-0) [facility] WITH [id number] 21:05:00 Test Item Value Reference Range Interpretation Comments WBC (test code = See_Comment [Automated 0834-2) message] The sy stem which generated this result transmitted reference range : 4.20 - 10.70 10*3/?L. The reference range was not used to interpret this result as normal/abnormal . RBC (test code = See_Comment [Automated 768-8) message] The sy stem which generated this [...] RDW-SD (test code = 44.8 fL 38.5-51.6 24709-6) RDW-CV (test code = 13.1 % 12.1-15.4 788-0) PLT (test code = See_Comment H [Automated 777-3) message] The sy stem which generated this result transmitted reference range : 150 - 328 10*3/ ?L. The reference r richard was not used to interpret this result as normal/abnormal . MPV (test code = 9.6 fL 9.8-13 L 20499-6) NRBC/100 WBC (test See_Comment [Automat ed code = 8847391353) message] The system which generated this result transmitted reference range : 0.0 - 10.0 /100 WBCs. The refer ence range was not u sed to interpret th is result as normal/abnormal . NRBC x10^3 (test code <0.01 See_Comment [Auto mated = 1464784783) message] The s ystem which generated this result transmitted reference range : 10*3/?L. The reference range was not used to interpret this result as normal/abnormal . GRAN MAT (NEUT) % 63.2 % (test code = 770-8) IMM GRAN % (test code 0.60 % = 8019402659) LYMPH % (test code = 26.6 % 736-9) MONO % (test code = 7.5 % 5905-5) EOS % (test code = 1.3 % 713-8) BASO % (test code = 0.8 % 706-2) GRAN MAT x10^3(ANC) 4.53 10*3/uL 1.99-6.95 (test code = 1070674274) IMM GRAN x10^3 (test 0.04 10*3/uL 0-0.06 code = 6732095626) LYMPH x10^3 (test code 1.91 10*3/uL 1.09-3.23 = 731-0) MONO x10^3 (test code 0.54 10*3/uL 0.36-1.02 = 742-7) EOS x10^3 (test code = 0.09 10*3/uL 0.06-0.53 711-2) BASO x10^3 (test code 0.06 10*3/uL 0.01-0.09 = 704-7) Lab Interpretation Abnormal (test code = 17237-5) [facility]"
[2021-08-11 10:52] LABS: Absolute Lymphocytes (CBC) 1.6 K/uL (0.7-4.9); Hematocrit 47.8 % (39.6-49.0); Lymphocytes % 20.8 % (15.3-44.8); MPV 7.2 fL (7.6-11.3)
[2021-08-11 11:07] LABS: Troponin High Sensitivity 5.6 pg/mL (<58.9)
--- NOTE | 2021-08-11 11:42 | RAD REPORT ---
EXAM DESCRIPTION: RAD - Chest Pa And Lat (2 Views) - 08/11/2021 11:02 am CLINICAL HISTORY: CHEST PAIN COMPARISON: Chest Single View dated 03/21/2021; Chest Pa And Lat (2 Views) dated 04/19/2018; Chest Pa A nd Lat (2 Views) dated 02/18/2018 FINDINGS: Lines: None. Lungs: Improved aeration of the lungs compared with 03/21/2021. Mild residual right upper lobe and le ft mid lung opacities may represent scarring. Pleural: No significant pleural effusions or pneumothorax. Cardiac: The heart size is within normal limits. Bones: No acute fractures. ACDF in the cervical spine. Other: IMPRESSION: Marked improvement in aeration of the lungs compared with 03/21/2021. Mild residual opac ities may reflect scarring and/or sequela of the prior pneumonia. An acute process difficult to entir alejandro exclude, however.
--- NOTE | 2021-08-11 11:52 | EDPHYS ---
Physician Documentation [facility] Name: Karli Garcia Age: 55 yrs Sex: Male : 1965 Arrival Date: 08/11/2021 Time: 09:53 Bed 19 Private MD: ED Physician Tee Saez HPI: 08/11 11:46 This 55 yrs old Male presents to ER via Ambulatory with complaints of Chest rn Pain, Back Pain, Shortness Of Breath. 11:46 The patient or guardian reports chest pain that is located primarily in the anterior rn chest wall, left. Onset: 2 month(s) ago. The pain does not radiate. Associated signs and symptoms: Pertinent positives: shortness of breath, Pertinent negatives: abdominal pain, cough, lower extremity swelling, near syncope, syncope, vomiting. The chest pain is described as sharp. Duration: The patient or guardian reports multiple episodes, that are intermittent. Modifying factors: The symptoms are alleviated by nothing. the symptoms are aggravated by nothing. Severity of pain: At its worst the pain was mild in the emergency department the pain is unchanged. The patient has experienced similar episodes in the past. The patient has been recently seen by a physician:. Patient reports here for chest pain and shortness of breath. Reports had COVID 2 months ago and has had these problems since then. [facility] today for appointment and they told him since he has had chest pain and shortness of breath for 2 months that he needs to come to the emergency room today. Patient states no gross changes. Denies hemoptysis. Denies trauma. Reports left anterior chest wall pain that comes and goes. Denies dyspnea when walking. Denies abdominal pain. Historical: - Allergies: 10:05 No Known Allergies; santizo - Home Meds: 10:05 Unable to obtain [Active]; santizo - PMHx: 10:05 Unable to Obtain; santizo - PSHx: 10:05 Unable to Obtain; santizo - Immunization history:: Adult Immunizations up to date. - Social history:: Smoking status: Patient denies any tobacco usage or history of. - Family history:: not pertinent. - Hospitalizations: : No recent hospitalization is reported. ROS: 11:46 Constitutional: Negative for fever, chills, and weight loss, Eyes: Negative for injury, rn pain, redness, and discharge, Neck: Negative for injury, pain, and swelling, Cardiovascular: Negative for palpitations, and edema, Respiratory: Negative for cough, wheezing, and pleuritic chest pain, Abdomen/GI: Negative for abdominal pain, nausea, vomiting, diarrhea, and constipation, Back: Negative for injury and pain, MS/Extremity: Negative for injury and deformity, Skin: Negative for injury, rash, and discoloration, Neuro: Negative for headache, weakness, numbness, tingling, and seizure. Exam: 10:27 ECG was reviewed by the Attending Physician. rn 11:46 Constitutional: This is a well developed, well nourished patient who is awake, alert, rn and in no acute distress. Head/Face: Normocephalic, atraumatic. Eyes: Periorbital areas with no swelling, redness, or edema. Cardiovascular: Regular rate and rhythm. No pulse deficits. Respiratory: No increased work of breathing, no retractions or nasal flaring. Abdomen/GI: Soft, non-tender Skin: Warm, dry with normal turgor. Normal color with no rashes, no lesions, and no evidence of cellulitis. MS/ Extremity: Pulses equal, no cyanosis. Neuro: Awake and alert, GCS 15 Vital Signs: 10:02 BP 137 / 94; Pulse 73; Resp 18; Temp 97.2(T); Pulse Ox 100% ; Weight 70.31 kg; Height 5 santizo ft. 4 in. (162.56 cm); 12:00 BP 141 / 89; Pulse 75; Resp 17; Temp 97.5; Pulse Ox 100% ; bp 10:02 Body Mass Index 26.61 (70.31 kg, 162.56 cm) santizo MDM: 10:06 Patient medically screened. rn 11:46 Differential diagnosis: acute pericarditis, anxiety, coronary artery disease chest wall rn pain, costochondritis, gastritis, pleurisy, pneumonia, pneumothorax. Data reviewed: vital signs, nurses notes, lab test result(s), EKG, radiologic studies, plain films, and as a result, I will discharge patient. Counseling: I had a detailed discussion with the patient and/or guardian regarding: the historical points, exam findings, and any diagnostic results supporting the discharge/admit diagnosis, lab results, radiology results, the need for outpatient follow up, to return to the emergency department if symptoms worsen or persist or if there are any questions or concerns that arise at home. Response to treatment: There is no appreciated change of the patient's symptoms at this time, and as a result, I will discharge patient. Special discussion: Based on the patient's history, exam, and Dx evaluation, there is no indication for emergent intervention or inpatient Tx. It is understood by the patient/guardian that if the Sx's persist or worsen they need to return immediately for re-evaluation. I discussed with the patient/guardian in detail that at this point there is no indication for admission to the hospital. It is understood, however, that if the symptoms persist or worsen the patient needs to return immediately for re-evaluation. ED course: No acute findings and work-up today. No oxygen requirement. Nontoxic appearance. Symptoms have been present for 2 months since COVID and x-ray shows clearing of infection since then. Will DC home with follow-up at [facility].. 08/11 10:15 Order name: CBC with Diff; Complete Time: 11: rn 08/11 10:15 Order name: Basic Metabolic Panel; Complete Time: : rn 08/11 10:15 Order name: BNP; Complete Time: : rn 08/11 10:15 Order name: Troponin High Sensitivity; Complete Time: : rn 08/11 10:15 Order name: XRAY Chest Pa And Lat (2 Views); Complete Time: 11: rn 08/11 10:15 Order name: EKG; Complete Time: 10:16 rn 08/11 10:15 Order name: IV Start; Complete Time: 10:37 rn 08/11 10:15 Order name: EKG - Nurse/Tech; Complete Time: 10:37 rn EC:27 Rate is 76 beats/min. Rhythm is regular. QRS [place] is Normal. AR interval is normal. QRS rn interval is normal. QT interval is normal. No Q waves. T waves are Normal. No ST changes noted. Clinical impression: Normal ECG. Interpreted by me. Reviewed by me. Administered Medications: No medications were administered Disposition Summary: 08/11/21 11:52 Discharge Ordered Location: Home rn Problem: new rn Symptoms: have improved rn Condition: Stable rn Diagnosis - Chest pain, unspecified rn Followup: rn - With: Private Physician - When: As needed - Reason: Recheck today's complaints, Re-evaluation by your physician Discharge Instructions: - Discharge Summary Sheet rn - Nonspecific Chest Pain, Adult rn - Hypertension, Adult rn - Pain Without a Known Cause rn Forms: - Medication Reconciliation Form rn - Thank You Letter rn - Antibiotic intern architect - Prescription Opioid Use rn Signatures: Dispatcher [employer] Tee Warner MD MD rn Sia-Mercy Kohli RN RN santizo
--- NOTE | 2021-08-11 11:52 | ER ---
Nurse's Notes [facility] Name: Karli Garcia Age: 55 yrs Sex: Male : 1965 Arrival Date: 08/11/2021 Time: 09:53 Bed 19 Private MD: Diagnosis: Chest pain, unspecified Presentation: 08/11 10:02 Chief complaint: Patient states: pt presented to ED reporting chronic back pain since santizo 2005, chest pain and sob since 2015. PT has provider from [place] and coming to get checked out. Coronavirus screen: Vaccine status: Patient reports being unvaccinated. Ebola Screen: Patient denies travel to an Ebola-affected area in the 21 days before illness onset. Initial Sepsis Screen: Does the patient meet any 2 criteria? No. Patient's initial sepsis screen is negative. Does the patient have a suspected source of infection? No. Patient's initial sepsis screen is negative. Risk Assessment: Do you want to hurt yourself or someone else? Patient reports no desire to harm self or others. Onset of symptoms was 2015. 10:02 Method Of Arrival: Ambulatory santioz 10:02 Acuity: ANTHONY 3 santizo Triage Assessment: 10:05 General: Appears in no apparent distress. Behavior is cooperative, agitated. santizo 10:10 General: Appears in no apparent distress. comfortable, Behavior is calm, cooperative, bp appropriate for age. Pain: Complains of pain in back and chest Pain began years ago. EENT: No deficits noted. Neuro: Level of Consciousness is awake, alert, obeys commands, Oriented to Appropriate for age. Cardiovascular: No deficits noted. Respiratory: No deficits noted. GI: No signs and/or symptoms were reported involving the gastrointestinal system. : No signs and/or symptoms were reported regarding the genitourinary system. Derm: No deficits noted. Musculoskeletal: Reports pain in back and chest since 2005. Historical: - Allergies: 10:05 No Known Allergies; santizo - Home Meds: 10:05 Unable to obtain [Active]; santizo - PMHx: 10:05 Unable to Obtain; santizo - PSHx: 10:05 Unable to Obtain; santizo - Immunization history:: Adult Immunizations up to date. - Social history:: Smoking status: Patient denies any tobacco usage or history of. - Family history:: not pertinent. - Hospitalizations: : No recent hospitalization is reported. Screenin:10 Abuse screen: Denies threats or abuse. Denies injuries from another. Nutritional bp screening: No deficits noted. Tuberculosis screening: No symptoms or risk factors identified. Fall Risk None identified. Assessment: 10:10 General: SEE TRIAGE NOTE. bp 12:18 Reassessment: PT D/C HOME AMBULATORY, DX WITH NONSPECIFIC CHEST PAIN. bp Vital Signs: 10:02 BP 137 / 94; Pulse 73; Resp 18; Temp 97.2(T); Pulse Ox 100% ; Weight 70.31 kg; Height 5 santizo ft. 4 in. (162.56 cm); 12:00 BP 141 / 89; Pulse 75; Resp 17; Temp 97.5; Pulse Ox 100% ; bp 10:02 Body Mass Index 26.61 (70.31 kg, 162.56 cm) santizo ED Course: 09:53 Patient arrived in ED. as 10:05 Triage completed. santizo 10:06 Tee Saez MD is Attending Physician. rn 10:10 Seymour Skinner, RN is Primary Nurse. bp 10:10 Patient has correct armband on for positive identification. Bed in low position. Call bp light in reach. Side rails up X2. 10:15 No provider procedures requiring assistance completed. IV discontinued, intact, bp bleeding controlled, No redness/swelling at site. Pressure dressing applied. 10:15 classroom monitor on. Pulse ox on. NIBP on. bp 10:38 Inserted saline lock: 20 gauge in left forearm, using aseptic technique. Blood bp collected. 11:02 XRAY Chest Pa And Lat (2 Views) In Process Unspecified. EDMS 12:15 Patient maintains SpO2 saturation greater than 95% on room air. bp 12:19 Arm band placed on. bp Administered Medications: No medications were administered Outcome: 11:52 Discharge ordered by . rn 12:15 Discharged to home ambulatory. bp 12:15 Condition: stable 12:15 Discharge instructions given to patient, Instructed on discharge instructions, follow up and referral plans. Demonstrated understanding of instructions, follow-up care. 12:20 Patient left the ED. bp Signatures: Dispatcher [employer] EDMS Tammie Powell Roman, MD MD rn Peltier, Brian, RN RN bp Au-Stager, KENZIE Madrid RN santizo
[2021-08-11 15:18] VITALS: O2SAT 100
[2021-08-11 15:19] VITALS: BP 141/89; TEMP 97.5
--- NOTE | 2021-08-12 08:04 | EKG ---
Test Date: 2021-08-11 Test Time: 10:27:49 Customer Retention Representative: BP MEASUREMENT RESULTS: Intervals: Rate: 76 IL: 152 QRSD: 82 QT: 384 QTc: 432 [place]: P: 50 IL: 152 QRS: -4 T: 39 INTERPRETIVE STATEMENTS: Normal sinus rhythm Normal ECG Compared to ECG 03/21/2021 10:49:30 Sinus tachycardia no longer present ST (T wave) deviation no longer present Electronically Signed On 08-12-21 08:02:49 MEDICAL SUPPORT ASSISTANT by Caleb Giraldo
== END 2021-08-11 12:20 | disposition home or self-care (01) ==
LOC: ER 09:52
DX: R07.9 Chest pain, unspecified (principal); Z86.16 Personal history of COVID-19
CPT/HCPCS: 36415; 71046; 80048; 83880; 84484; 85025; 93005; 99285

== ENCOUNTER 2022-12-23 11:47 | Emergency (ER) | payer OTHER ==
[2022-12-23 12:39] LABS: Absolute Lymphocytes (CBC) 1.7 K/uL (0.7-4.9); Hematocrit 41.6 % (39.6-49.0); Lymphocytes % 31.7 % (15.3-44.8); MCV 93.6 fL (80-100); MPV 7.3 fL (7.6-11.3); RBC Red Blood Cell Count 4.44 M/uL (4.33-5.43)
[2022-12-23 12:44] LABS: Protime INR 0.95
[2022-12-23 13:01] LABS: Albumin 3.4 g/dL (3.4-5.0); Bilirubin Direct 0.1 mg/dL (0-0.2); Bilirubin Indirect, Calculated 0.4 mg/dL (0.2-0.8); Bilirubin Total 0.5 mg/dL (0.2-1.0); Magnesium 2.3 mg/dL (1.6-2.4); Potassium 3.8 mEq/L (3.5-5.1); Protein, Total 7.1 g/dL (6.4-8.2); Troponin High Sensitivity 4.2 pg/mL (<58.9)
--- NOTE | 2022-12-23 13:12 | RAD REPORT ---
EXAM DESCRIPTION: RAD - Chest Single View - 12/23/2022 1:00 pm CLINICAL HISTORY: CHEST PAIN Chest pain. COMPARISON: Chest Pa And Lat (2 Views) dated 08/11/2021; Chest Single View dated 03/21/2021; Chest Pa A nd Lat (2 Views) dated 04/19/2018; Chest Pa And Lat (2 Views) dated 02/18/2018 FINDINGS: Portable technique limits examination quality. The lungs are grossly clear. The heart is normal in size. No displaced fractures.Cervical spine hardw are. IMPRESSION: No acute intrathoracic process suspected.
--- OUTSIDE RECORDS SUMMARY | 2022-12-23 13:30 | XMS REPORT | Continuity of Care Document ---
:1965 Author Organization [facility] t Address [address] [place] [address] [address] [place] [address] Care Team Providers Name Role Phone Kandi Decker MD, Balaji Primary Care Physician [phone] WHIT CROUCH Attending Clinician Unavailable Radiology Attending Clinician Unavailable RADIOLOGY Attending Clinician Unavailable FABRIZIO LARKIN Attending Clinician Unavailable Sloan BEAUCHAMP, Fabrizio Attending Clinician Luis Eduardo Tomas MD Attending Clinician [phone] AGATHA MENENDEZ Attending Clinician Unavailable Agatha Weinstein Attending Clinician Whit Crouch MD Attending Clinician Jason BEAUCHAMP, Nathan Attending Clinician Charu Kaplan MD Attending Clinician Wesly BEAUCHAMP, Sj Attending Clinician Bob Stephens MD, Inocente lCeary Attending Clinician [phone] Shad BEAUCHAMP, Tejinder Kaplan Attending Clinician [phone] Laya BEAUCHAMP, Audi Attending Clinician Nicolasa BEAUCHAMP, Martin Ling Attending Clinician Radames BEAUCHAMP, Isacc Attending Clinician JOSE MANSFIELD Attending Clinician Unavailable Jose Mares Attending Clinician Doctor Unassigned, [place] Attending Clinician Unavailable Colt RODRIGUES, Carmenza Attending Clinician Milton Gold APN Attending Clinician MILTON GOLD Attending Clinician Unavailable Maria Tran Attending Clinician Juan Daniel BEAUCHAMP, Belén Davis Attending Clinician Dylan Jensen DO Attending Clinician Therapist, Yosi Respiratory Attending Clinician Unavailable Hubert Mcguire Attending Clinician WHIT CROUCH Admitting Clinician Unavailable AGATAH MENENDEZ Admitting Clinician Unavailable MILTON GOLD Admitting Clinician Unavailable Payers Payer Name Policy Type Policy Number Effective Date Expiration Date S ashley [employer] [id number] 2005 ADMINISTRATION 00:00:00 MEDICARE PART A [id number] 2004 00:00:00 [place] OF STATE [place] [id number] 2021 00:00:00 [place] CHOICE [id number] 2020 CARD AND PC3 00:00:00 Problems Condition Condition Condition Status Onset Resolution Last Treating Co mments Source Name Details Category Date Date Treatment Clinician Date COVID-19 COVID-19 Disease Active [facility] No known No known Disease Unive rs active active ity of problems problems [facility] Allergies, Adverse Reactions, Alerts Allergy Allergy Status Severity Reaction(s) Onset Inactive Treating Comm ents Source Name Type Date Date Clinician NO KNOWN Allergy Active [facility] NO KNOWN Drug Active Univers ALLERGIE Class ity of S [place] [facility] Social History Social Habit Start Date Stop Date Quantity Comments Source Gender identity [facility] Exposure to 2021-11-02 2021-11-12 Not sure [facility]-CoV-2 (event) 00:00:00 17:54:00 [facility] Alcohol intake 2021-03-22 2021-03-22 Ex-drinker NIKUNJ Sams es 00:00:00 00:00:00 (finding) [facility] Tobacco use and 2021-03-21 2021-03-21 Smokeless NIKUNJ Ramey exposure 00:00:00 00:00:00 tobacco non-user [facility] Sex Ass[birth year] At [birth year] NIKUNJ Ramey 00:00:00 00:00:00 [facility] Smoking Status Start Date Stop Date Source Tobacco smoking consumption unknown [facility] Never smoked tobacco [facility] Medications Ordered Filled Start Stop Current Ordering Indication Dosage Frequency Signature Comments Components Source Medication Medication Date Date Medication? Clinician (SIG) Name Name gadobenate 2022- No [id number] .2mL/kg 0.2 mL/kg, Univers dimeglumine 12-09 Intravenou i ty of (MULTIHANCE 20:45: 21:02 s, ONCE, 1 [place] -15 mL) 00 :00 dose, On Medical injection Tue Branch 0.2 mL/kg 12/09/22 at 1545, Routine dexamethaso 2021- No 10mg 10 mg, Uni vers ne sod phos 11-13 Slow IV ity of PF 00:30: 23:35 Push, [place] injection 00 :00 ONCE, 1 Medical 10 mg dose, On Branch 11/12/21 at 1930, 1 mL ketorolac 2021- No 15mg 15 mg, Unive rs (TORADOL) 11-13 Slow IV ity of injection 00:30: 23:35 Push, [place] 15 mg 00 :00 ONCE, 1 Medical dose, On Branch 11/12/21 at 1930, MANUELA
Fa culty member approving Restricted medication : AGATHA MENENDEZ naproxen Yes [id number] 500mg Take 1 U nivers 500 mg 4-26 tablet by ity of tablet 00:00: mouth 2 00 (two) Medical times Branch daily with meals. methocarbam Yes [id number] 500mg Take 1 Univers oL 500 mg 4-26 tablet by ity o f tablet 00:00: mouth (four) Medical times Branch daily as needed (muscle pain). naproxen 2021-0 Yes [id number] 500mg Take 1 U nivers 500 mg 4-26 tablet by ity of tablet 00:00: mouth 2 (two) Medical times Branch daily with meals. methocarbam 2021-0 Yes [id number] 500mg Take 1 Univers oL 500 mg 4-26 tablet by ity o f tablet 00:00: mouth (four) Medical times Branch daily as needed (muscle pain). naproxen 0 Yes [id number] 500mg Take 1 U nivers 500 mg 4-26 tablet by ity of tablet 00:00: mouth (two) Medical times Branch daily with meals. methocarbam 2021-0 Yes [id number] 500mg Take 1 [facility] oL 500 mg 4-26 tablet by ity o f tablet 00:00: mouth (four) Medical times Branch daily as needed (muscle pain). predniSONE 2021- No [id number] 20mg Take 1 Univers 20 mg 4-26 05-01 tablet by ity of tablet 00:00: 04:59 mouth 2 00 :00 (two) Medical times Branch daily for 4 days. acetaminoph 2020- No 650mg 650 mg, U [...] 03/16/21 at Branch 1815, MANUELA albuterol Yes 2{puff} Inhale [address] HFA 8-28 [facility] ([facility]IN 00:00: mouth via Med ical HFA) 90 00 inhaler. Center mcg/actuati on inhaler benzonatate Yes 100mg Take [address] (TESSALON) 8-28 mg by [facility] 100 MG 00:00: mouth. Medical capsule 00 [place] dextrometho Yes 10mL Take [address] rphan-guaif 8-28 mLs by [facility] enesin 00:00: mouth. Medical (ROBITUSSIN 00 [facility]) 10-100 mg/5 mL liquid albuterol Yes 2{puff} Inhale [address] HFA 8-28 puffs [facility] (VENTOLIN 00:00: mouth via Med ical HFA) 90 00 inhaler. [place] mcg/actuati on inhaler benzonatate Yes 100mg Take [address] (TESSALON) 8-28 mg by [facility] 100 MG 00:00: mouth. Medical capsule 00 [place] dextrometho Yes 10mL Take [address] rphan-guaif 8-28 mLs by [facility] enesin 00:00: mouth. Medical (ROBITUSSIN [address] [place] [address]) 10-100 mg/5 mL liquid albuterol Yes [id number] 2{puff} Inhale 2 Univers 90 8-28 Puffs ity of mcg/actuati 00:00: every 4 [place] as on inhaler 00 (four) Medical hours as Branch needed for Wheezing or Shortness of Breath. benzonatate Yes [id number] 100mg Take 1 [facility] 100 mg 8-28 capsule by ity of capsule 00:00: mouth 3 [place] 00 (three) Medical times Branch daily as needed for Cough. dextrometho Yes [id number] 10mL Take 10 mL [facility] rphan-guaif 8-28 by mouth ity of enesin 00:00: every 6 [place] 10-100 mg/5 00 (six) Medical mL solution hours as Bran ch needed for Cough. ondansetron Yes [id number] 4mg Take 1 Univers 4 mg 8-28 tablet by ity of disintegrat 00:00: mouth [place] ing tablet 00 every 8 Medica l (eight) Branch hours as needed for Nausea and Vomiting (N/V). albuterol Yes [id number] 2{puff} Inhale 2 Univers 90 8-28 Puffs ity of mcg/actuati 00:00: every 4 [place] as on inhaler 00 (four) Medical hours as Branch needed for Wheezing or Shortness of Breath. benzonatate 0 Yes [id number] 100mg Take 1 [facility] 100 mg 8-28 capsule by ity of capsule 00:00: mouth 3 [place] 00 (three) Medical times Branch daily as needed for Cough. dextrometho 0 Yes [id number] 10mL Take 10 mL [facility] rphan-guaif 8-28 by mouth ity of enesin 00:00: every 6 [place] 10-100 mg/5 00 (six) Medical mL solution hours as Bran ch needed for Cough. ondansetron 0 Yes [id number] 4mg Take 1 Univers 4 mg 8-28 tablet by ity of disintegrat 00:00: mouth [place] ing tablet 00 every 8 Medica l (eight) Branch hours as needed for Nausea and Vomiting (N/V). albuterol 0 Yes [id number] 2{puff} Inhale 2 [facility] 90 8-28 Puffs ity of mcg/actuati 00:00: every 4 [place] as on inhaler 00 (four) Medical hours as Branch needed for Wheezing or Shortness of Breath. benzonatate 0 Yes [id number] 100mg Take 1 [facility] 100 mg 8-28 capsule by ity of capsule 00:00: mouth 3 [place] 00 (three) Medical times Branch daily as needed for Cough. dextrometho 0 Yes [id number] 10mL Take 10 mL Univers rphan-guaif 8-28 by mouth ity of enesin 00:00: every 6 [place] 10-100 mg/5 00 (six) Medical mL solution hours as Bran ch needed for Cough. ondansetron 0 Yes [id number] 4mg Take 1 Univers 4 mg 8-28 tablet by ity of disintegrat 00:00: mouth [place] ing tablet 00 every 8 Medica l (eight) Branch hours as needed for Nausea and Vomiting (N/V). albuterol 2020-0 Yes [id number] 2{puff} Inhale 2 Univers 90 8-28 Puffs ity of mcg/actuati 00:00: every 4 [place] on inhaler 00 (four) Medical hours as Branch needed for Wheezing or Shortness of Breath. benzonatate 2020-0 Yes [id number] 100mg Take 1 Univers 100 mg 8-28 capsule by ity of capsule 00:00: mouth 3 [place] 00 (three) Medical times Branch daily as needed for Cough. dextrometho 0 Yes [id number] 10mL Take 10 mL [facility] rphan-guaif 8-28 by mouth ity of enesin 00:00: every 6 [place] 10-100 mg/5 00 (six) Medical mL solution hours as Bran ch needed for Cough. ondansetron 0 Yes [id number] 4mg Take 1 Univers 4 mg 8-28 tablet by ity of disintegrat 00:00: mouth [place] ing tablet 00 every 8 Medica l (eight) Branch hours as needed for Nausea and Vomiting (N/V). albuterol Yes [id number] 2{puff} Inhale 2 Univers 90 8-28 Puffs ity of mcg/actuati 00:00: every 4 [place] as on inhaler 00 (four) Medical hours as Branch needed for Wheezing or Shortness of Breath. benzonatate Yes [id number] 100mg Take 1 [facility] 100 mg 8-28 capsule by ity of capsule 00:00: mouth 3 [place] 00 (three) Medical times Branch daily as needed for Cough. dextrometho 0 Yes [id number] 10mL Take 10 mL Univers rphan-guaif 8-28 by mouth ity of enesin 00:00: every 6 [place] 10-100 mg/5 00 (six) Medical mL solution hours as Bran ch needed for Cough. ondansetron 0 Yes [id number] 4mg Take 1 Univers 4 mg 8-28 tablet by ity of disintegrat 00:00: mouth [place] ing tablet 00 every 8 Medica l (eight) Branch hours as needed for Nausea and Vomiting (N/V). albuterol Yes 2{puff} Inhale [address] HFA 8-28 puffs [facility] (VENTOLIN 00:00: mouth via Med ical HFA) 90 00 inhaler. Center mcg/actuati on inhaler benzonatate 0 Yes 100mg Take [address] (TESSALON) 8-28 [facility] 100 MG 00:00: mouth. Medical capsule 00 Center dextrometho 2021-0 Yes 10mL Take [address] rphan-simonaif 8-28 mLs by [facility] enesin 00:00: mouth. Medical (ROBITUS 00 Center -DM) 10-100 mg/5 mL liquid ondansetron 2020- No 4mg Take [address] [facility] [address] (ZOFRAN-ODT 03-16 by mouth. [facility] ) 4 MG 00:00: 00:00 Medical disintegrat 00 :00 Center ing tablet ondansetron No 4mg Take [address] [facility] [address] (ZOFRAN-ODT 03-16 by mouth. [facility] ) 4 MG 00:00: 00:00 Medical disintegrat 00 :00 Center ing tablet aspirin No 324mg 324 mg, Unive rs chewable 01-11 Oral, ity of tablet 324 21:30: 20:46 ONCE, 1 [place] as mg 00 :00 dose, [facility] 01/12/20 at Branch 1630, MANUELA traMADol 50 0 2019- No [id number] 50mg Take 1 Univers mg tablet 6-10 - tablet by ity of 00:00: 04:59 mouth [place] 00 :00 every 6 Medical (six) Branch hours as needed for Pain (scale 7-10) for up to 3 days. traMADol 50 2019-0 Yes [id number] 50mg Take 1 Univers mg tablet 2-10 tablet by ity o f 00:00: mouth [place] 00 every 6 Medical (six) Branch hours as needed for Pain (scale 7-10). traMADol 50 2020-0 Yes [id number] 50mg Take 1 Univers mg tablet 2-10 tablet by ity o f 00:00: mouth [place] 00 every 6 Medical (six) Branch hours as needed for Pain (scale 7-10). traMADol 50 2020-0 Yes [id number] 50mg Take 1 Univers mg tablet 2-10 tablet by ity o f 00:00: mouth [place] 00 every 6 Medical (six) Branch hours as needed for Pain (scale 7-10). traMADol 50 2020-0 Yes [id number] 50mg Take 1 Univers mg tablet 2-10 tablet by ity o f 00:00: mouth [place] 00 every 6 Medical (six) Branch hours as needed for Pain (scale 7-10). traMADol 50 2019-0 Yes [id number] 50mg Take 1 Univers mg tablet 2-10 tablet by ity o f 00:00: mouth [place] 00 every 6 Medical (six) Branch hours as needed for Pain (scale 7-10). traMADol 50 2020-0 Yes [id number] 50mg Take 1 Univers mg tablet 2-10 tablet by ity o f 00:00: mouth [place] 00 every 6 Medical (six) Branch hours as needed for Pain (scale 7-10). traMADol 50 2020-0 Yes [id number] 50mg Take 1 Univers mg tablet 2-10 tablet by ity o f 00:00: mouth [place] 00 every 6 Medical (six) Branch hours as needed for Pain (scale 7-10). traMADol 50 2020-0 Yes [id number] 50mg Take 1 Univers mg tablet 2-10 tablet by ity o f 00:00: mouth [place] 00 every 6 Medical (six) Branch hours as needed for Pain (scale 7-10). traMADol 50 2020-0 Yes [id number] 50mg Take 1 Univers mg tablet 2-10 tablet by ity o f 00:00: mouth [place] 00 every 6 Medical (six) Branch hours as needed for Pain (scale 7-10). traMADol 50 2020-0 Yes [id number] 50mg Take 1 Univers mg tablet 2-10 tablet by ity o f 00:00: mouth [place] 00 every 6 Medical (six) Branch hours as needed for Pain (scale 7-10). traMADol 50 2020-0 Yes [id number] 50mg Take 1 Univers mg tablet 2-10 [id number] tablet by ity of 00:00: mouth [place] 00 every 6 Medical (six) Branch hours as needed for Pain (scale 7-10). traMADol 50 2020-0 Yes [id number] 50mg Take 1 Univers mg tablet 2-10 [id number] tablet by ity of 00:00: mouth [place] 00 every 6 Medical (six) Branch hours as needed for Pain (scale 7-10). traMADol 50 2020-0 Yes [id number] 50mg Take 1 Univers mg tablet 2-10 [id number] tablet by ity of 00:00: mouth [place] 00 every 6 Medical (six) Branch hours as needed for Pain (scale 7-10). traMADol 50 2020-0 Yes [id number] 50mg Take 1 Univers mg tablet 2-10 tablet by ity o f 00:00: mouth [place] 00 every 6 Medical (six) Branch hours as needed for Pain (scale 7-10). acetaminoph 2020-0 Yes [id number] 1{tbl} Take 1 Univers en-codeine 1-03 07 tablet by ity of (TYLENOL-CO 00:00: mouth [place] DEINE #3) 00 every 6 Medical 300-30 mg (six) Branch tablet hours as needed (pain unrelieved by Ibuprofen) . ibuprofen 2020-0 Yes [id number] 600mg Take 1 Univers 600 mg 1-03 07 tablet by ity of tablet 00:00: mouth [place] 00 every 6 Medical (six) Branch hours as needed for Pain (scale 1-3). cyclobenzap 2020-0 Yes [id number] 5mg Take 1 Univers rine 5 mg 1-03 07 tablet by ity o f tablet 00:00: mouth 3 [place] 00 (three) Medical times Branch daily as needed for Muscle Spasms. acetaminoph 2020-0 Yes [id number] 1{tbl} Take 1 Univers en-codeine 1-03 07 tablet by ity of (TYLENOL-CO 00:00: mouth [place] DEINE #3) 00 every 6 Medical 300-30 mg (six) Branch tablet hours as needed (pain unrelieved by Ibuprofen) . ibuprofen 2020-0 Yes [id number] 600mg Take 1 Univers 600 mg 1-03 07 tablet by ity of tablet 00:00: mouth [place] 00 every 6 Medical (six) Branch hours as needed for Pain (scale 1-3). cyclobenzap 2020-0 Yes [id number] 5mg Take 1 Univers rine 5 mg 1-03 07 tablet by ity o f tablet 00:00: mouth 3 [place] 00 (three) Medical times Branch daily as needed for Muscle Spasms. acetaminoph 2020-0 Yes [id number] 1{tbl} Take 1 Univers en-codeine 1-03 07 tablet by ity of (TYLENOL-CO 00:00: mouth [place] DEINE #3) 00 every 6 Medical 300-30 mg (six) Branch tablet hours as needed (pain unrelieved by Ibuprofen) . ibuprofen 2020-0 Yes [id number] 600mg Take 1 Univers 600 mg 1-03 07 tablet by ity of tablet 00:00: mouth [place] 00 every 6 Medical (six) Branch hours as needed for Pain (scale 1-3). cyclobenzap 2020-0 Yes [id number] 5mg Take 1 Univers rine 5 mg 1-03 07 tablet by ity o f tablet 00:00: mouth 3 [place] 00 (three) Medical times Branch daily as needed for Muscle Spasms. acetaminoph 2020-0 Yes [id number] 1{tbl} Take 1 Univers en-codeine 1-03 07 tablet by ity of (TYLENOL-CO 00:00: mouth [place] DEINE #3) 00 every 6 Medical 300-30 mg (six) Branch tablet hours as needed (pain unrelieved by Ibuprofen) . ibuprofen 2020-0 Yes [id number] 600mg Take 1 Univers 600 mg 1-03 07 tablet by ity of tablet 00:00: mouth [place] 00 every 6 Medical (six) Branch hours as needed for Pain (scale 1-3). cyclobenzap 2020-0 Yes [id number] 5mg Take 1 Univers rine 5 mg 1-03 07 tablet by ity o f tablet 00:00: mouth 3 [place] 00 (three) Medical times Branch daily as needed for Muscle Spasms. acetaminoph 2020-0 Yes [id number] 1{tbl} Take 1 Univers en-codeine 1-03 07 tablet by ity of (TYLENOL-CO 00:00: mouth [place] DEINE #3) 00 every 6 Medical 300-30 mg (six) Branch tablet hours as needed (pain unrelieved by Ibuprofen) . ibuprofen 2020-0 Yes [id number] 600mg Take 1 Univers 600 mg 1-03 07 tablet by ity of tablet 00:00: mouth [place] 00 every 6 Medical (six) Branch hours as needed for Pain (scale 1-3). cyclobenzap 2020-0 Yes [id number] 5mg Take 1 Univers rine 5 mg 1-03 07 tablet by ity o f tablet 00:00: mouth 3 [place] 00 (three) Medical times Branch daily as needed for Muscle Spasms. acetaminoph 2020-0 Yes [id number] 1{tbl} Take 1 Univers en-codeine 1-03 07 tablet by ity of (TYLENOL-CO 00:00: mouth [place] DEINE #3) 00 every 6 Medical 300-30 mg (six) Branch tablet hours as needed (pain unrelieved by Ibuprofen) . ibuprofen 2020-0 Yes [id number] 600mg Take 1 Univers 600 mg 1-03 07 tablet by ity of tablet 00:00: mouth [place] 00 every 6 Medical (six) Branch hours as needed for Pain (scale 1-3). cyclobenzap 2020-0 Yes [id number] 5mg Take 1 Univers rine 5 mg 1-03 07 tablet by ity o f tablet 00:00: mouth 3 [place] 00 (three) Medical times Branch daily as needed for Muscle Spasms. acetaminoph 2020-0 Yes [id number] 1{tbl} Take 1 Univers en-codeine 1-03 07 tablet by ity of (TYLENOL-CO 00:00: mouth [place] DEINE #3) 00 every 6 Medical 300-30 mg (six) Branch tablet hours as needed (pain unrelieved by Ibuprofen) . ibuprofen 2020-0 Yes [id number] 600mg Take 1 Univers 600 mg 1-03 07 tablet by ity of tablet 00:00: mouth [place] 00 every 6 Medical (six) Branch hours as needed for Pain (scale 1-3). cyclobenzap 2020-0 Yes [id number] 5mg Take 1 Univers rine 5 mg 1-03 07 tablet by ity o f tablet 00:00: mouth 3 [place] 00 (three) Medical times Branch daily as needed for Muscle Spasms. acetaminoph 2020-0 Yes [id number] 1{tbl} Take 1 Univers en-codeine 1-03 07 tablet by ity of (TYLENOL-CO 00:00: mouth [place] DEINE #3) 00 every 6 Medical 300-30 mg (six) Branch tablet hours as needed (pain unrelieved by Ibuprofen) . ibuprofen 2020-0 Yes [id number] 600mg Take 1 Univers 600 mg 1-03 07 tablet by ity of tablet 00:00: mouth [place] 00 every 6 Medical (six) Branch hours as needed for Pain (scale 1-3). cyclobenzap 2020-0 Yes [id number] 5mg Take 1 Univers rine 5 mg 1-03 07 tablet by ity o f tablet 00:00: mouth 3 [place] 00 (three) Medical times Branch daily as needed for Muscle Spasms. acetaminoph 2020-0 Yes [id number] 1{tbl} Take 1 Univers en-codeine 1-03 07 tablet by ity of (TYLENOL-CO 00:00: mouth [place] DEINE #3) 00 every 6 Medical 300-30 mg (six) Branch tablet hours as needed (pain unrelieved by Ibuprofen) . ibuprofen 2020-0 Yes [id number] 600mg Take 1 Univers 600 mg 1-03 07 tablet by ity of tablet 00:00: mouth [place] 00 every 6 Medical (six) Branch hours as needed for Pain (scale 1-3). cyclobenzap 2020-0 Yes [id number] 5mg Take 1 Univers rine 5 mg 1-03 07 tablet by ity o f tablet 00:00: mouth 3 [place] 00 (three) Medical times Branch daily as needed for Muscle Spasms. acetaminoph 2020-0 Yes [id number] 1{tbl} Take 1 Univers en-codeine 1-03 07 tablet by ity of (TYLENOL-CO 00:00: mouth [place] DEINE #3) 00 every 6 Medical 300-30 mg (six) Branch tablet hours as needed (pain unrelieved by Ibuprofen) . ibuprofen 2020-0 Yes [id number] 600mg Take 1 Univers 600 mg 1-03 07 tablet by ity of tablet 00:00: mouth [place] 00 every 6 Medical (six) Branch hours as needed for Pain (scale 1-3). cyclobenzap 2020-0 Yes [id number] 5mg Take 1 Univers rine 5 mg 1-03 07 tablet by ity o f tablet 00:00: mouth 3 [place] 00 (three) Medical times Branch daily as needed for Muscle Spasms. acetaminoph 2020-0 Yes [id number] 1{tbl} Take 1 Univers en-codeine 1-03 07 tablet by ity of (TYLENOL-CO 00:00: mouth [place] DEINE #3) 00 every 6 Medical 300-30 mg (six) Branch tablet hours as needed (pain unrelieved by Ibuprofen) . ibuprofen 2020-0 Yes [id number] 600mg Take 1 Univers 600 mg 1-03 07 tablet by ity of tablet 00:00: mouth [place] 00 every 6 Medical (six) Branch hours as needed for Pain (scale 1-3). cyclobenzap 2020-0 Yes [id number] 5mg Take 1 Univers rine 5 mg 1-03 07 tablet by ity o f tablet 00:00: mouth 3 [place] 00 (three) Medical times Branch daily as needed for Muscle Spasms. acetaminoph 2020-0 Yes [id number] 1{tbl} Take 1 Univers en-codeine 1-03 07 tablet by ity of (TYLENOL-CO 00:00: mouth [place] DEINE #3) 00 every 6 Medical 300-30 mg (six) Branch tablet hours as needed (pain unrelieved by Ibuprofen) . cyclobenzap 2020-0 Yes [id number] 5mg Take 1 Univers rine 5 mg 1-03 07 tablet by ity o f tablet 00:00: mouth 3 [place] 00 (three) Medical times Branch daily as needed for Muscle Spasms. ibuprofen 2020-0 Yes [id number] 600mg Take 1 Univers 600 mg 1-03 07 tablet by ity of tablet 00:00: mouth [place] 00 every 6 Medical (six) Branch hours as needed for Pain (scale 1-3). acetaminoph 2020-0 Yes [id number] 1{tbl} Take 1 Univers en-codeine 1-03 07 tablet by ity of (TYLENOL-CO 00:00: mouth [place] DEINE #3) 00 every 6 Medical 300-30 mg (six) Branch tablet hours as needed (pain unrelieved by Ibuprofen) . cyclobenzap 2020-0 Yes [id number] 5mg Take 1 Univers rine 5 mg 1-03 07 tablet by ity o f tablet 00:00: mouth 3 [place] 00 (three) Medical times Branch daily as needed for Muscle Spasms. acetaminoph 2020-0 Yes [id number] 1{tbl} Take 1 Univers en-codeine 1-03 07 tablet by ity of (TYLENOL-CO 00:00: mouth [place] DEINE #3) 00 every 6 Medical 300-30 mg (six) Branch tablet hours as needed (pain unrelieved by Ibuprofen) . ibuprofen 2020-0 Yes [id number] 600mg Take 1 Univers 600 mg 1-03 07 tablet by ity of tablet 00:00: mouth [place] 00 every 6 Medical (six) Branch hours as needed for Pain (scale 1-3). ibuprofen 2020-0 Yes [id number] 600mg Take 1 [facility] 600 mg 1-03 07 tablet by ity of tablet 00:00: mouth [place] 00 every 6 Medical (six) Branch hours as needed for Pain (scale 1-3). cyclobenzap 2020-0 Yes [id number] 5mg Take 1 Univers rine 5 mg 1-03 07 tablet by ity o f tablet 00:00: mouth 3 [place] 00 (three) Medical times Branch daily as needed for Muscle Spasms. traMADOL 50 2018- No 50mg Take 50 mg Univers mg tablet 03-14 by mouth ity o f 14:44: 00:00 every 6 [place] 07 :00 (six) Medical hours as Branch needed. traMADOL 50 2019- No 50mg Take 50 mg Univers mg tablet 03-14 by mouth ity o f 14:44: 00:00 every 6 [place] 07 :00 (six) Medical hours as Branch needed. lisinopril Yes [id number] 5mg Take 1 U nivers (PRINIVIL) 8-26 tablet by ity of 5 mg tablet 00:00: mouth [place] 00 daily. Medical Branch lisinopril Yes [id number] 5mg Take 1 U nivers (PRINIVIL) 8-26 tablet by ity of 5 mg tablet 00:00: mouth [place] 00 daily. Medical Branch lisinopril Yes [id number] 5mg Take 1 U nivers (PRINIVIL) 8-26 tablet by ity of 5 mg tablet 00:00: mouth [place] 00 daily. Medical Branch lisinopril Yes [id number] 5mg Take 1 U nivers (PRINIVIL) 8-26 tablet by ity of 5 mg tablet 00:00: mouth [place] 00 daily. Medical Branch lisinopril Yes [id number] 5mg Take 1 U nivers (PRINIVIL) 8-26 tablet by ity of 5 mg tablet 00:00: mouth [place] 00 daily. Medical Branch lisinopril Yes [id number] 5mg Take 1 U nivers (PRINIVIL) 8-26 tablet by ity of 5 mg tablet 00:00: mouth [place] 00 daily. Medical Branch lisinopril Yes [id number] 5mg Take 1 U nivers (PRINIVIL) 8-26 tablet by ity of 5 mg tablet 00:00: mouth [place] 00 daily. Medical Branch lisinopril Yes [id number] 5mg Take 1 U nivers (PRINIVIL) 8-26 tablet by ity of 5 mg tablet 00:00: mouth [place] 00 daily. Medical Branch lisinopril Yes [id number] 5mg Take 1 U nivers (PRINIVIL) 8-26 tablet by ity of 5 mg tablet 00:00: mouth [place] 00 daily. Medical Branch lisinopril 0 Yes [id number] 5mg Take 1 U nivers (PRINIVIL) 8-26 tablet by ity of 5 mg tablet 00:00: mouth [place] 00 daily. Medical Branch lisinopril Yes [id number] 5mg Take 1 U nivers (PRINIVIL) 8-26 tablet by ity of 5 mg tablet 00:00: mouth [place] 00 daily. Medical Branch lisinopril Yes [id number] 5mg Take 1 U nivers (PRINIVIL) 8-26 tablet by ity of 5 mg tablet 00:00: mouth [place] 00 daily. Medical Branch lisinopril Yes [id number] 5mg Take 1 U nivers (PRINIVIL) 8-26 tablet by ity of 5 mg tablet 00:00: mouth [place] 00 daily. Medical Branch lisinopril Yes [id number] 5mg Take 1 U nivers (PRINIVIL) 8-26 tablet by ity of 5 mg tablet 00:00: mouth [place] 00 daily. Medical Branch lisinopril Yes [id number] 5mg Take 1 U nivers (PRINIVIL) 8-26 tablet by ity of 5 mg tablet 00:00: mouth [place] 00 daily. Medical Branch lisinopril Yes [id number] 5mg Take 1 U nivers (PRINIVIL) 8-26 tablet by ity of 5 mg tablet 00:00: mouth [place] 00 daily. Medical Branch lisinopril Yes [id number] 5mg Take 1 U nivers (PRINIVIL) 8-26 tablet by ity of 5 mg tablet 00:00: mouth [place] 00 daily. Medical Branch traMADOL 50 0 Yes 50mg Take 50 mg Univers mg tablet 1-18 by mouth ity of 14:58: every 6 [place] 32 (six) Medical hours as Branch needed. traMADOL 50 Yes 50mg Take 50 mg Univers mg tablet 1-18 by mouth ity of 14:58: every 6 [place] 32 (six) Medical hours as Branch needed. traMADOL 50 0 Yes 50mg Take 50 mg Univers mg tablet 1-18 by mouth ity of 14:58: every 6 [place] [address] (six) Medical hours as Branch needed. traMADOL 50 2019-0 Yes 50mg Take 50 mg Univers mg tablet 1-18 by mouth ity of 14:58: every 6 [place] [address] (six) Medical hours as Branch needed. traMADOL 50 2019-0 Yes 50mg Take 50 mg Univers mg tablet 1-18 by mouth ity of 14:58: every 6 [place] [address] (six) Medical hours as Branch needed. azithromyci 2017-07 Yes 250mg Take 1 Uni vers n 2-31 tablet by ity of (ZITHROMAX 00:00: mouth [place] Z-KIMBERLYN) 250 00 SEE-INSTRU Med ical mg tablet CTIONS. Branch Take 500 mg day 1, then 250 mg days 2 to 5. methylPREDN 2017-07 Yes Take by Uni vers ISolone 4 2-31 mouth ity of mg [...] to 5. methylPREDN 2017-07 Yes Take by Uni vers ISolone 4 2-31 mouth ity of mg [...] to 5. methylPREDN 2017-07 Yes Take by Uni vers ISolone 4 2-31 mouth ity of mg [...] to 5. methylPREDN 2017-07 Yes Take by Uni vers ISolone 4 2-31 mouth ity of mg tablets 00:00: [place]-INSTRU [place] 00 CTIONS. Medical follow Branch package directions azithromyci 2017-07 2019- No 250mg Take 1 Un erwin n -03-14 tablet by ity of (ZITHROMAX 00:00: 00:00 mouth [place] Z-KIMBERLYN) 250 00 :00 SEE-INSTRU Med ical mg tablet CTIONS. Branch Take 500 mg day 1, then 250 mg days 2 to 5. methylPREDN 2017-07 2019- No Take by Un erwin ISolone 4 2-03-14 mouth ity of mg tablets 00:00: 00:00 SEE-INSTRU [place] 00 :00 CTIONS. Medical follow Branch package directions azithromyci 2017-07 2019- No 250mg Take 1 Un erwin n 2-03-14 tablet by ity of (ZITHROMAX 00:00: 00:00 mouth [place] Z-KIMBERLYN) 250 00 :00 SEE-INSTRU Med ical mg tablet CTIONS. Branch Take 500 mg day 1, then 250 mg days 2 to 5. methylPREDN 2017-07 2019- No Take by Un erwin ISolone 4 203-14 mouth ity of mg tablets 00:00: 00:00 SEE-INSTRU [place] 00 :00 CTIONS. Medical follow Branch package directions inhalationa 2017-0 Yes Use as Univ ers l spacing 7-08 directed ity of device 00:00: [place] (BREATHERIT 00 Medical E Branch SPACER-MASK ,ADULT) inhalationa 2017-0 Yes Use as Univ ers l spacing 7-08 directed ity of device 00:00: [place] (BREATHERIT 00 Medical E Branch SPACER-MASK ,ADULT) [...] 7-08 directed ity of device 00:00: [place] (BREATHERIT 00 Medical E Branch SPACER-MASK ,ADULT) inhalationa 2017-0 Yes Use as Univ ers l spacing 7-08 directed ity of device 00:00: [place] (BREATHERIT 00 Medical E Branch SPACER-MASK ,ADULT) inhalationa 2017-0 Yes Use as Univ ers l spacing 7-08 directed ity of device 00:00: [place] (BREATHERIT 00 Medical E Branch SPACER-MASK ,ADULT) albuterol 2017-0 Yes 2{puff} Inhale 2 U nivers 90 7-08 Puffs ity of mcg/actuati 00:00: every 4 [place] on inhaler 00 (four) Medical hours as Branch needed for Wheezing or Shortness of Breath. inhalationa 2017-0 Yes Use as Univ ers l spacing 7-08 directed ity of device 00:00: [place] (BREATHERIT 00 Medical E Branch SPACER-MASK ,ADULT) inhalationa 2017-0 Yes Use as Univ ers l spacing 7-08 directed ity of device 00:00: [place] (BREATHERIT 00 Medical E Branch SPACER-MASK ,ADULT) albuterol 2017-0 Yes 2{puff} Inhale 2 U nivers 90 7-08 Puffs ity of mcg/actuati 00:00: every 4 [place] on inhaler 00 (four) Medical hours as Branch needed for Wheezing or Shortness of Breath. inhalationa 2017-0 Yes Use as Univ ers l spacing 7-08 directed ity of device 00:00: [place] (BREATHERIT 00 Medical E Branch SPACER-MASK ,ADULT) albuterol 2017-0 Yes 2{puff} Inhale 2 U nivers 90 7-08 Puffs ity of mcg/actuati 00:00: every 4 [place] on inhaler 00 (four) Medical hours as Branch needed for Wheezing or Shortness of Breath. inhalationa 2017-0 Yes Use as Univ ers l spacing 7-08 directed ity of device 00:00: [place] (BREATHERIT 00 Medical E Branch SPACER-MASK ,ADULT) albuterol 2017-0 Yes 2{puff} Inhale 2 U nivers 90 7-08 Puffs ity of mcg/actuati 00:00: every 4 [place] on inhaler 00 (four) Medical hours as Branch needed for Wheezing or Shortness of Breath. inhalationa Yes Use as Univ ers l spacing 7-08 directed ity of device 00:00: [place] (BREATHERIT 00 Medical E Branch SPACER-MASK ,ADULT) albuterol Yes 2{puff} Inhale 2 U nivers 90 7-08 Puffs ity of mcg/actuati 00:00: every 4 [place] on inhaler 00 (four) Medical hours as Branch needed for Wheezing or Shortness of Breath. inhalationa Yes Use as Univ ers l spacing 7-08 directed ity of device 00:00: [place] (BREATHERIT 00 Medical E Branch SPACER-MASK ,ADULT) albuterol 2019- No 2{puff} Inhale 2 Univers 90 7-08 08-26 Puffs ity of mcg/actuati 00:00: 00:00 every 4 [place] on inhaler 00 :00 (four) Medical hours as Branch needed for Wheezing or Shortness of Breath. albuterol 2019- No 2{puff} Inhale 2 Univers 90 [...] 162.6 cm WEIGHT 2021-03-21 17:00:00 72.122 kg Systolic blood 2021-11-13 00:30:00 108 mm[Hg] Univer sity of pressure [facility] Diastolic blood 2021-11-13 00:30:00 70 mm[Hg] Unive rsity of pressure [facility] Heart rate 2021-11-13 00:30:00 66 /min [facility] Respiratory rate 2021-11-13 00:30:00 16 /min Univ ersity of [place] [facility] Oxygen saturation in 2021-11-13 00:30:00 98 /min University of Arterial blood by [facility] Pulse oximetry Branch Body temperature 2021-11-12 22:56:00 36.89 Jaqui Univ ersity of [place] [facility] Body weight 2021-11-12 22:56:00 72.576 kg Universi ty of [place] [facility] BMI 2021-11-12 22:56:00 27.46 kg/m2 Universi ty of [place] [facility] HEIGHT 2021-03-24 18:00:00 162.6 cm WEIGHT 2021-03-24 18:00:00 66.1 kg HEIGHT 2021-03-21 17:45:00 162.6 cm WEIGHT 2021-03-21 17:45:00 72.122 kg HEIGHT 2021-03-21 17:00:00 162.6 cm WEIGHT 2021-03-21 17:00:00 72.122 kg Body temperature 2021-03-17 00:10:31 38.33 Jaqui Univ ersity of [place] [facility] Systolic blood 2021-03-17 00:07:12 156 mm[Hg] Univer sity of pressure [place] [facility] Diastolic blood 2021-03-17 00:07:12 89 mm[Hg] Unive rsity of pressure [place] [facility] Heart rate 2021-03-17 00:07:12 81 /min Universi ty of [place] [facility] Respiratory rate 2021-03-17 00:07:12 18 /min Univ ersity of [place] [facility] Oxygen saturation in 2021-03-17 00:07:12 98 /min University of Arterial blood by [facility] Pulse oximetry Branch Body height 2021-03-16 21:38:00 162.6 cm Universi ty of [place] [facility] Body weight 2021-03-16 21:38:00 72.576 kg Universi ty of [place] [facility] BMI 2021-03-16 21:38:00 27.46 kg/m2 Universi ty of [place] [facility] Systolic blood 2020-03-18 21:18:00 159 mm[Hg] Univer sity of pressure [place] [facility] Diastolic blood 2020-03-18 21:18:00 112 mm[Hg] Unive rsity of pressure [place] [facility] Heart rate 2020-03-18 21:18:00 76 /min Universi ty of [place] [facility] Respiratory rate 2020-03-18 21:18:00 16 /min Univ ersity of [place] [facility] Body weight 2020-03-18 21:18:00 72.576 kg Universi ty of [place] [facility] BMI 2020-03-18 21:18:00 25.82 kg/m2 Universi ty of [facility] Branch Oxygen saturation in 2020-03-18 21:18:00 98 /min University of Arterial blood by [facility] Pulse oximetry Branch Systolic blood 2020-01-12 23:00:00 154 mm[Hg] Univer sity of pressure [place] [facility] Diastolic blood 2020-01-12 23:00:00 104 mm[Hg] Unive rsity of pressure [place] [facility] Heart rate 2020-01-12 23:00:00 71 /min Universi ty of [place] [facility] Respiratory rate 2020-01-12 23:00:00 19 /min Univ ersity of [facility] Branch Oxygen saturation in 2020-01-12 23:00:00 97 /min University of Arterial blood by [facility] Pulse oximetry Branch Body temperature 2020-01-12 20:09:00 37.06 Jaqui Univ ersity of [place] [facility] Body height 2020-01-12 20:09:00 167.6 cm Universi ty of [place] [facility] Body weight 2020-01-12 20:09:00 72.576 kg Universi ty of [place] [facility] BMI 2020-01-12 20:09:00 25.82 kg/m2 Universi ty of [facility] Branch Systolic blood 2019-12-28 19:19:00 171 mm[Hg] Univer sity of pressure [place] [facility] Diastolic blood 2019-12-28 19:19:00 103 mm[Hg] Unive rsity of pressure [place] [facility] Heart rate 2019-12-28 19:19:00 76 /min Universi ty of [place] [facility] Body temperature 2019-12-28 19:19:00 35.83 Jaqui Univ ersity of [place] [facility] Respiratory rate 2019-12-28 19:19:00 16 /min Univ ersity of [place] [facility] Body height 2019-12-28 19:19:00 162.6 cm Universi ty of [place] [facility] Body weight 2019-12-28 19:19:00 72.576 kg Universi ty of [place] [facility] BMI 2019-12-28 19:19:00 27.46 kg/m2 Universi ty of [place] [facility] Oxygen saturation in 2019-12-28 19:19:00 97 /min University of Arterial blood by [place] [employer] Pulse oximetry Branch Systolic blood 2019-08-29 21:00:00 158 mm[Hg] Univer sity of pressure [place] [facility] Diastolic blood 2019-08-29 21:00:00 89 mm[Hg] Unive rsity of pressure [place] [facility] Heart rate 2019-08-29 21:00:00 75 /min Universi ty of [place] [facility] Respiratory rate 2019-08-29 21:00:00 18 /min Univ ersity of [place] [facility] Oxygen saturation in 2019-08-29 21:00:00 100 /min University of Arterial blood by [place] [employer] Pulse oximetry Branch Body temperature 2019-08-29 19:07:00 36.67 Jaqui Univ ersity [facility] [place] [facility] Body weight 2019-08-29 19:07:00 70.308 kg [facility]i ty [facility] [place] [facility] BMI 2019-08-29 19:07:00 26.61 kg/m2 [facility] [place] [facility] Systolic blood 2019-03-14 19:30:00 148 mm[Hg] Univer sity of pressure [place] [facility] Diastolic blood 2019-03-14 19:30:00 92 mm[Hg] Unive rsity of pressure [place] [facility] Heart rate 2019-03-14 19:27:00 69 [...] 98 /min University of Arterial blood by [facility] Pulse oximetry Branch Systolic blood 2019-03-14 14:45:00 163 mm[Hg] Univer sity of pressure [place] [facility] Diastolic blood 2019-03-14 14:45:00 94 mm[Hg] Unive rsity of pressure [place] [facility] Heart rate 2019-03-14 14:43:00 66 /min Universi ty [facility] [place] [facility] Respiratory rate 2019-03-14 14:43:00 19 /min [facility] Body height 2019-03-14 14:43:00 162.6 cm [facility] Body weight 2019-03-14 14:43:00 67.223 kg [facility] BMI 2019-03-14 14:43:00 25.44 kg/m2 [facility] Oxygen saturation in 2019-03-14 14:43:00 99 /min [facility] Arterial blood by [facility] Pulse oximetry Branch Systolic blood 2021-04-04 08:03:00 119 mm[Hg] [facility] Diastolic blood 2021-04-04 08:03:00 87 mm[Hg] [facility] Heart rate 2021-04-04 08:03:00 93 /min [facility] Body temperature 2021-04-04 08:03:00 36.61 Jaqui [facility] Respiratory rate 2021-04-04 08:03:00 17 /min [facility] Oxygen saturation in 2021-04-04 08:03:00 98 /min [facility] Arterial blood by Medical nter Pulse oximetry Body height 2021-03-24 18:00:00 162.6 cm [facility] Body weight 2021-03-24 18:00:00 66.1 kg [facility] BMI 2021-03-24 18:00:00 25.01 kg/m2 [facility] Procedures Procedure Date / Time Performing Clinician Source Performed MR BRAIN W WO CONTRAST 2022-12-09 21:08:46 Requisition, Paper [facility] WITH NEUROQUANT Medical Branch XR CHEST 1 VW 2021-11-12 23:52:15 Agatha Menendez [facility] TROPONIN I 2021-11-12 23:34:00 Agatha Menendez [facility] COMP. METABOLIC PANEL 2021-11-12 23:34:00 Agatha Menendez [facility] ([id number]) Medical Branch CBC WITH DIFF 2021-11-12 23:34:00 Agatha Menendez [facility] CONSENT/REFUSAL FOR 2021-11-12 22:54:37 [facility] Unassigned, [facility] Name Medical Branch NOTICE OF PRIVACY 2021-11-12 22:54:18 Doctor Unassigned, No Univ ersity [facility] PRACTICES Name Medical Branch POCT-GLUCOSE METER 2021-04-04 08:00:00 Isacc Crum [facility] COMPREHENSIVE METABOLIC 2021-04-04 05:29:00 Martin Baldwin In [facility] POCT-GLUCOSE METER 2021-04-03 21:29:00 Radames [facility] POCT-GLUCOSE METER 2021-04-03 17:08:00 Radames [facility] POCT-GLUCOSE METER 2021-04-03 11:37:00 Radames [facility] POCT-GLUCOSE METER 2021-04-03 07:16:[facility] 2021-04-03 03:36:00 Martin Baldwin In [facility] HEMOGLOBIN A1C 2021-04-03 03:36:00 Susana Baldwing In [facility] HC LAB HIV-1 AG 2021-04-03 03:29:00 Susana Baldwing In [facility]/HIV-1&2 AB Center HEPATITIS PANEL, ACUTE 2021-04-03 03:29:00 Martin Baldwin In [facility] POCT-GLUCOSE METER 2021-04-02 21:10:00 Susana Baldwing In [facility] POCT-GLUCOSE METER 2021-04-02 17:28:00 Susana Baldwing In [facility] POCT-GLUCOSE METER 2021-04-02 16:45:00 Sofía-Kimi Sung In [facility] POCT-GLUCOSE METER 2021-04-02 12:15:00 Nicolasa Sung In [facility] POCT-GLUCOSE METER 2021-04-02 08:27:00 Sofía-Kimi, Sung In [facility] CBC (HEMOGRAM ONLY) 2021-04-02 04:29:00 Sofía-Kimi, Sung In [facility] COMPREHENSIVE METABOLIC 2021-04-02 04:29:00 Sofía-Kimi, Sung In [facility] MAGNESIUM 2021-04-02 04:29:00 Sofía-Kimi, Sung In [facility] POCT-GLUCOSE METER 2021-04-01 16:41:00 Sofía-Kimi, Sung In [facility] POCT-GLUCOSE METER 2021-04-01 11:21:00 Sofía-Kimi, Sung In [facility] POCT-GLUCOSE METER 2021-04-01 07:38:00 Sofía-Kimi, Sung In [facility] CBC (HEMOGRAM ONLY) 2021-04-01 05:39:00 Sofía-Kimi, Sung In [facility] C-REACTIVE PROTEIN 2021-04-01 05:38:00 Sofía-Kimi, Sung In [facility] COMPREHENSIVE METABOLIC 2021-04-01 05:38:00 Sofía-Kimi, Sung In [facility] MAGNESIUM 2021-04-01 05:38:00 Sofía-Kimi, Sung In [facility] POCT-GLUCOSE METER 2021-03-31 20:29:00 Sofía-Kimi, Sung In [facility] POCT-GLUCOSE METER 2021-03-31 16:41:00 Sofía-Kimi, Sung In [facility] COMPREHENSIVE METABOLIC 2021-03-31 07:40:00 Sofía-Kimi, Sung In [facility] MAGNESIUM 2021-03-31 07:40:00 Sofía-Kimi, Sung In [facility] CBC (HEMOGRAM ONLY) 2021-03-31 05:22:00 Sofía-Kimi, Sung In [facility] CBC (HEMOGRAM ONLY) 2021-03-30 04:46:00 Sofía-Kimi, Sung In [facility] C-REACTIVE PROTEIN 2021-03-30 04:46:00 Sofía-Kimi, Sung In [facility] COMPREHENSIVE METABOLIC 2021-03-30 04:46:00 Sofía-Kimi, Sung In [facility] MAGNESIUM 2021-03-30 04:46:00 Sofía-Kimi, Sung In [facility] CBC (HEMOGRAM ONLY) 2021-03-29 04:32:00 Sofía-Kimi, Sung In [facility] COMPREHENSIVE METABOLIC 2021-03-29 04:32:00 Sofía-Kimi, Sung In [facility] MAGNESIUM 2021-03-29 04:32:00 Sofía-Kimi, Sung In [facility] CBC (HEMOGRAM ONLY) 2021-03-28 03:48:00 Sofía-Kimi, Sung In [facility] C-REACTIVE PROTEIN 2021-03-28 03:48:00 Sofía-Kimi, Sung In [facility] COMPREHENSIVE METABOLIC 2021-03-28 03:48:00 Sofía-Kimi, Sung In [facility] MAGNESIUM 2021-03-28 03:48:00 Sofía-Kimi, Sung In [facility] RAPID DRUG SCREEN, URINE 2021-03-27 12:39:00 Bob Stephens I [facility] CBC (HEMOGRAM ONLY) 2021-03-27 04:52:00 Sofía-Kimi, Sung In [facility] CBC (HEMOGRAM ONLY) 2021-03-26 04:17:00 Sofía-Kimi, Sung In [facility] C-REACTIVE PROTEIN 2021-03-26 04:17:00 Sofía-Kimi, Sung In [facility] COMPREHENSIVE METABOLIC 2021-03-26 04:17:00 Sofía-Kimi, Sung In [facility] MAGNESIUM 2021-03-26 04:17:00 Sofía-Kimi, Sung In [facility] COMPREHENSIVE METABOLIC 2021-03-25 04:26:00 Charu Kaplan [facility] CBC (HEMOGRAM ONLY) 2021-03-25 04:26:00 Sofía-Kimi, Sung Anuradha [facility] PROCALCITONIN 2021-03-25 04:26:00 [facility] XR CHEST 1 VIEW PORTABLE 2021-03-24 11:52:00 [facility] / BEDSIDE Center C-REACTIVE PROTEIN 2021-03-24 11:40:00 [facility] B-TYPE NATRIURETIC 2021-03-24 11:40:00 [facility] (B[facility] 2021-03-24 06:51:00 Eusebio, [facility] PHOSPHORUS 2021-03-24 06:51:00 [facility] 2021-03-24 05:45:00 Eusebio, [facility] CBC W/PLT COUNT & AUTO 2021-03-23 04:42:00 [facility] 2021-03-23 04:42:00 Eusebio, [facility] CBC W/PLT COUNT & AUTO 2021-03-23 04:42:00 Eusebio, [facility] CBC W/PLT COUNT & AUTO 2021-03-22 04:39:00 [facility] 2021-03-22 04:39:00 [facility] MAGNESIUM 2021-03-22 04:39:00 [facility] LACTIC ACID, VENOUS 2021-03-22 04:39:00 [facility] CHOLESTEROL, TOTAL 2021-03-22 04:39[facility] W[facility] & AUTO 2021-03-22 04:39:00 [facility] CBC (HEMOGRAM ONLY) 2021-03-21 18:37:[address] [facility] COMPREHENSIVE METABOLIC 2021-03-21 18:37:00 Whit Crouch [facility] PT/APTT 2021-03-21 18:37:00 Whit Crouch [facility] D-DIMER 2021-03-21 18:37:00 Whit Crouch [facility] LACTIC ACID, VENOUS 2021-03-21 18:37:[address] [facility] C-REACTIVE PROTEIN 2021-03-21 18:37:00 Whit Crouch [facility] HIGH SENSITIVITY 2021-03-21 18:37:00 Whit Crouch [facility] TROPONIN I Center XR CHEST 1 VIEW PORTABLE 2021-03-21 18:25:00 Whit Crouch [facility] / BEDSIDE Center COVID-19 (ID NOW RAPID 2021-03-16 21:51:00 Andrea Caicedo [facility] TESTING) Medical Branch NOTICE OF PRIVACY 2021-03-16 21:38:22 Doctor Unassigned, No [facility] PRACTICES Name Medical Branch CONSENT/REFUSAL FOR 2021-03-16 21:32:43 Doctor Unassigned, No Un iversity [facility] DIAGNOSIS AND TREATMENT Name Medical Branch NOTICE OF PRIVACY 2020-03-18 21:10:21 Doctor Unassigned, No [facility] PRACTICES Name Medical Branch CONSENT/REFUSAL FOR 2020-03-18 21:09:58 Doctor Unassigned, [facility] Branch TROPONIN I 2020-01-12 23:00:00 Milton Gold [facility] XR CHEST 1 VW 2020-01-12 21:05:58 Milton Gold [facility] EKG-12 LEAD 2020-01-12 20:52:24 Andrea Caicedo f [facility] TROPONIN I 2020-01-12 20:51:00 Milton Gold [facility] COMP. METABOLIC PANEL 2020-01-12 20:51:00 Milton Gold [facility] ([id number]) Medical Branch CBC WITH DIFFERENTIAL 2020-01-12 20:51:00 Milton Gold [facility] 2020-01-12 20:28:04 Milton Gold [facility] NOTICE OF PRIVACY 2020-01-12 20:15:02 Doctor Unassigned, No [facility] CONSENT/REFUSAL FOR 2020-01-12 19:58:18 Doctor Unassigned, No [facility] [place] DIAGNOSIS AND TREATMENT Name Medical Branch NOTICE OF PRIVACY 2019-12-28 19:11:43 [facility] CONSENT/REFUSAL FOR 2019-12-28 19:11:31 Doctor Unassigned, No [facility] [place] DIAGNOSIS AND TREATMENT Name Medical Branch CONSENT/REFUSAL FOR 2019-08-29 19:07:07 Doctor Unassigned, No [facility] [place] DIAGNOSIS AND TREATMENT Name Medical Branch AUTHORIZATION FOR 2019-03-01 05:01:00 Doctor Unassigned, No [facility] RELEASE OF PHI [facility] Medical Branch ASSIGNMENT OF BENEFITS 2019-02-17 14:48:20 Doctor Unassigned, No [facility] Plan of Care Planned Activity Planned Date Details Comments Source Future Scheduled 2026-03-[address] [facility] 00:00:00 (procedure) [code = [facility] [id number]] Future Scheduled 2026-03-[address] [facility] 00:00:00 (procedure) [code = [facility] [id number]] Future Scheduled 2026-03-[address] [facility] Test 00:00:00 (procedure) [code = [facility] [id number]] Future Scheduled 2023-03-[address] [facility] Test 00:00:00 (Season Ended) [code = [facility] INFLUENZA VACCINE (Season Ended)] Future Scheduled 2022-10-22 COVID-19 VACCINE (#1) [facility] Test 23:55:36 [code = COVID-19 VACCINE (#1)] Future Scheduled 2022-10-22 [facility] Test 23:55:36 malignant neoplasm of colon (procedure) [code = [id number]] Future Scheduled 2022-10-22 SHINGLES VACCINES (1 Met [facility] Test 23:55:36 of 2) [code = SHINGLES VACCINES (1 of 2)] Future Scheduled 2022-10-22 INFLU[facility]ZA VACCINE [facility] 23:55:36 [code = INFLUENZA VACCINE] Future Scheduled 2022-07-[address] [facility] Test 00:00:00 (12+) [code = Medical Center DEPRESSION SCREENING (12+)] Future Scheduled 2022-03-[address] [facility] Test 00:00:00 [facility] Screening (12+) [code = Tobacco Cessation Counseling and Screening (12+)] Future Scheduled 2021-05-29 [facility]ACCINE [facility] 06:41:50 [code = INFLUENZA VACCINE] Future Scheduled 2021-05-29 COVID-19 VACCINE (1) Met [facility] Test 06:41:50 [code = COVID-19 VACCINE (1)] Future Scheduled 2021-05-29 COLONOSCOPY SCREENING [facility] Test 06:41:50 [code = COLONOSCOPY SCREENING] Future Scheduled 2021-05-29 SHINGLES VACCINES (#1) [facility] Test 06:41:50 [code = SHINGLES VACCINES (#1)] Future Scheduled 2021-05-29 INFLUENZA VACCINE [facility] Test 06:41:50 [code = INFLUENZA VACCINE] Future Scheduled 2021-05-29 COVID-19 VACCINE (1) Met [facility] Test 06:41:50 [code = COVID-19 VACCINE (1)] Future Scheduled 2021-05-29 COLONOSCOPY SCREENING [facility] Test 06:41:50 [code = COLONOSCOPY SCREENING] Future Scheduled 2021-05-29 SHINGLES VACCINES (#1) M [facility] Test 06:41:50 [code = SHINGLES VACCINES (#1)] Future Scheduled 2021-03-20 INFLUENZA VACCINE (#1) [facility]00 [code = INFLUENZA Medical Ce nter VACCINE (#1)] Future Scheduled 2021-03-20 INFLUENZA VACCINE (#1) [facility] 00:00:00 [code = INFLUENZA Medical Ce nter VACCINE (#1)] Future Scheduled 2020-07-[address] [facility] Test 00:00:00 (12+) [code = Medical Center DEPRESSION SCREENING (12+)] Future Scheduled 2020-07-[address] [facility] Test 00:00:00 (12+) [code = Medical Center DEPRESSION SCREENING (12+)] Future Scheduled 2013-09-16 SHINGLES VACCINES ([address] [facility] Test 00:00:00 of 2) [code = SHINGLES Medic al Center VACCINES (1 of 2)] Future Scheduled 2013-09-16 SHINGLES VACCINES ([address] [facility] Test 00:00:00 of 2) [code = SHINGLES Medic al Center VACCINES (1 of 2)] Future Scheduled 2013-09-16 SHINGLES VACCINES ([address] [facility] Test 00:00:00 of 2) [code = SHINGLES Medic al Center VACCINES (1 of 2)] Future Scheduled 1982-09-16 DTAP/TDAP/TD [facility]ACCINES [facility] 00:00:00 (1 - Tdap) [code = Medical C enter DTAP/TDAP/TD VACCINES (1 - Tdap)] Future Scheduled 1982-09-16 DTAP/TDAP/TD [facility]ACCINES [facility] 00:00:00 (1 - Tdap) [code = Medical C enter DTAP/TDAP/TD VACCINES (1 - Tdap)] Future Scheduled 1982-09-16 DTAP/TDAP/TD [facility]ACCINES [facility] 00:00:00 (1 - Tdap) [code = Medical C enter DTAP/TDAP/TD VACCINES (1 - Tdap)] Future Scheduled 1975 COVID-19 VACCINE (1) [facility] Test 00:00:00 [code = COVID-[address] VACCINE (1)] Future Scheduled 1975 COVID-19 VACCINE (1) [facility] Test 00:00:00 [code = COVID-[address] VACCINE (1)] Future Scheduled 1969-09-[address] [facility] Test 00:00:00 0-64 YRS (1 of 2 - Medical C enter PPSV23) [code = PNEUMOCOCCAL VACCINE 0-64 YRS (1 of 2 - PPSV23)] Future Scheduled 1969-09-[address] [facility] Test 00:00:00 0-64 YRS (1 of 2 - Medical C enter PPSV23) [code = PNEUMOCOCCAL VACCINE 0-64 YRS (1 of 2 - PPSV23)] Future Scheduled 1964-03-17 COVID-19 VACCINE (#1) [facility] 00:00:00 [code = COVID-[address] VACCINE (#1)] Future Scheduled [address] [facility] 00:[facility]:00 malignant neoplasm of Medica l Center colon (procedure) [code = 030422769] Future Scheduled [address] [facility] Test 00:00:00 malignant neoplasm of [facility] Center colon (procedure) [code = 267182804] Future Scheduled [address] [facility] Test 00:00:00 (combo) [code = CT Medical C enter Colonography (combo)] Future Scheduled [address] [facility] Test 00:00:00 malignant neoplasm of [facility]ica l Center colon (procedure) [code = 929381095] Future Scheduled [address] [facility] Test 00:00:00 malignant neoplasm of [facility] Center colon (procedure) [code = 033217367] Future Scheduled [address] [facility] Test 00:00:00 malignant neoplasm of [facility] Center colon (procedure) [code = 357634685] Future Scheduled [address] [facility] Test 00:00:00 malignant neoplasm of [facility]ica [facility] Center colon (procedure) [code = 623641775] Future Scheduled 1963 Sigmoidoscopy [code = [facility] S[facility]oidoscopy] Medical Bryce r Future Scheduled COVID-19 VACCINE (1) [facility] [code = COVID-19 VACCINE (1)] Future Scheduled [facility] [code = COLONOSCOPY SCREENING] Future Scheduled SHINGLES VACCINES (#1) [facility] Test [code = SHINGLES VACCINES (#1)] Future Scheduled INFLUENZA VACCINE [facility] Test [code = INFLUENZA VACCINE] Encounters Start End Encounter Admission Attending Care Care Encounter Source Date/Time Date/Time Type Type Clinicians Facility Department ID 2021-05-17 Emergency [facility] [id number] [facility] 2021-05[facility]17 Emergency [facility] [id number] [facility]:25[facility] 2021-03-21 Inpatient ER KEVIN [facility] [id number] [facility] 17:21:00 WHIT Med 2022-12-09 2022-12-09 [facility] Radiology [facility] 1.2.840.114 [id number] Univers 11:12:13 23:59:00 Encounter SPECIALTY [id number] [place] [phone] [facility] BJORN [address] [place] [address] 2022-12-09 2022-12-09 Outpatient R RADIOLOGY [facility] [id number] Univers 13:00:00 13:00:00 ity [facility] 2022-12-09 2022-12-09 Outpatient R RADIOLOGY [facility] [id number] Univers 11:11:58 11:11:58 ity [facility] 2022-12-09 2022-12-09 [facility] Radiology [facility] 1.2.840.114 [id number] Univers 11:11:58 11:11:58 Encounter SPECIALTY [id number] [place] [phone] [facility] CODY [id number] [facility] 2022-07-03 2022-07-03 Outpatient [place] [facility] [id number] SLE 13:28:16 23:59:00 [facility] 2022-07-03 2022-07-03 [facility] [id number] 13:28:16 23:59:00 Encounter [facility] 2022-06-20 2022-06-[address] [facility] [id number] 00:[facility]:00 00:00:00 Orders Luis Eduardo [facility] 2021-11-12 2021-11-12 Emergency X [facility] ERT [id number] Univers 17:59:00 19:59:00 AGATHA ity [facility] 2021-11-12 2021-11-12 Emergency [facility] [id number] Univers 17:59:00 19:59:00 Agatha PAUL 350.1.13.10 i ty of [place] 4.2.7.2.686 [facility] [phone] [place] [address] Branch 2021-03-21 2021-04-04 [facility] [address] [facility] [id number] 17:21:00 12:19:00 Encounter Nathan Gomez, Charu Soria, Sj Stephens, Inocente Kulkarni, Tejinder Asif, Audi Baldwin, Martin In [facility] 2021-03-21 2021-03-21 Travel [facility] [id number] [facility] 00:00:00 00:00:00 [facility] 2021-03-16 2021-03-16 Emergency X HAUGHTON, [facility] ERT [id number] Univers 16:47:00 19:11:00 JOSE ity of [facility] 2021-03-16 2021-03-16 Emergency Letha, [facility] 1.2.840.114 [id number] Univers 16:47:00 19:11:00 Jose Paul 350.1.13.10 i ty of [place] 4.2.7.2.686 [facility] [phone] [place] [address] Branch 2021-03-16 2021-03-16 Orders Doctor GOODE 1.2.840.114 [id number] Univers 00:00:00 00:00:00 Only Unassigned, YOSI 350.1.13.10 ity of [place] [facility] 4.2.7.2.686 Josse [id number] [facility] 009 Branch 2020-03-18 2020-03-18 Emergency Gregory, [facility] 1.2.840.114 [id number] Univers 16:20:00 17:11:00 Carmenza Paul 350.1.13.10 i ty of [place] 4.2.7.2.686 [facility] [phone] [place] [address] Branch 2020-03-18 2020-03-18 Orders Doctor RUSSEL 1.2.840.114 [id number] Univers 00:00:00 00:00:00 Only Unassigned, YOSI 350.1.13.10 ity of [place] [facility] 4.2.7.2.686 Josse as [phone] [address] 2020-01-12 2020-01-12 Emergency [facility] [id number] Univers 15:11:20 19:15:00 Milton Paul 350.1.13.10 [place] [phone] [address] 2020-01-12 2020-01-12 Emergency X [facility] ERT [id number] Univers 15:11:20 19:15:00 MILTON ortiz [facility] 2020-01-12 2020-01-12 Orders Doctor GOODE 1.2.840.114 [id number] Univers 00:00:00 00:00:00 Only Unassigned, YOSI 350.1.13.10 ity of [place] [facility] 4.2.7.2.686 Josse as [id number] [address] 2019-12-28 2019-12-28 Emergency [facility] 1.2.840.114 [id number] Univers 14:24:52 15:07:00 Maria Paul 350.1.13.10 [place] [phone] [address] 2019-12-28 2019-12-28 Orders Doctor GOODE 1.2.840.114 [id number] Univers 00:00:00 00:00:00 Only Unassigned, YOSI 350.1.13.10 ity of [place] [facility] 4.2.7.2.686 Josse as [phone] [address] 2019-08-29 2019-08-29 Emergency [facility] [id number] Univers 14:10:22 15:48:00 Agatha Paul 350.1.13.10 i [place] [phone] [facility] [address] 2019-08-29 2019-08-29 Emergency X [facility] ERT [id number] Univers 14:10:22 15:48:00 AGATHA ity of [facility] 2019-07-22 2019-07-22 Emergency X [facility] ERT [id number] Univers 20:56:21 21:28:00 ity of [facility] 2019-03-14 2019-03-14 [facility] 1.2.840.114 [id number] Univers 14:10:26 21:22:26 Visit Belén Paul 350.1.13.10 [place] [phone] [place] 627689 [facility] 2019-03-14 2019-03-14 Office [facility] 1.2.840.114 [id number] Univers 09:23:01 10:11:35 Visit Dylan Paul 350.1.13.10 i [place] [phone] Ri dictx nal 5 [facility] 2019-03-01 2019-03-01 Orders Doctor RUSSEL 1.2.840.114 [id number] Univers 00:00:00 00:00:00 Only Unassigned, YOSI 350.1.13.10 ity of [place] [facility] 4.2.7.2.686 Josse as [phone] [facility] 009 Branch 2019-02-21 2019-02-21 Case [facility] 1.2.840.114 [id number] Univers 00:00:00 00:00:00 Management Dylan Paul 350.1.13.10 [place] [phone] Ri dic[address] 2019-02-21 2019-02-21 Telephone [facility] [id number] Univers 00:00:00 00:00:00 Dylan Paul 350.1.13.10 i [place] [phone] Ri dical nal [address] [facility] 2019-02-17 2019-02-17 Visual Merchandising Specialist Therapist, Adc Respiratory [facility] 1.2.840.114 [id number] Univers 09:54:11 11:24:11 Visit Hubert Mcguire 350.1.13. 10 ity of [place] 4.2.7.2.686 [facility] [phone] [facility] [address] 2019-02-17 2019-02-17 Orders Doctor RUSSEL 1.2.840.114 [id number] Univers 00:00:00 00:00:00 Only Unassigned, YOSI 350.1.13.10 ity of [place] [facility] 4.2.7.2.686 [facility] [phone] [facility] 009 [place] Results Test Description Test Time Test Comments Results Result Comments Source TROPONIN I 2021-11-13 00:19:22 Test Item Value Reference Range Interpretation Comme nts TROPONIN I (test code = 0.003 ng/mL See_Comment [Au tomated message] The [id number]) system which ge nerated this result tra nsmitted reference range : <=0.034. The reference r richard was not used to int erpret this result as normal/abnormal . CATHERINE (test code = CATHERINE) Reference (Normal) Range (defined by the 99th percentile reference limit): <= 0.034 ng/mL Note: Cardiac troponin begins to rise 3-4 hours after the onset of ischemia. Repeat in 4-6 hours if the sample was drawn within 3-4 hours of the onset of the symptom and found normal. Diagnosis of myocardial injury is made with acute changes in cTn concentrations with at least one serial sample above the 99th percentile upper reference limit (URL), taken together with the patient's clinical presentation. Biotin has been reported to cause a negative bias, interpret results relative to patient's use of biotin. Lab Interpretation Normal (test code = 57238-9) [facility]. METABOLIC PANEL (01923)2021-11-13 00:07:57 Test Item Value Reference Range Interpretation Comments NA (test code = 141 mmol/L 135-145 7426713156) K (test code = 4.8 mmol/L 3.5-5.0 5840699750) CL (test code = 107 mmol/L 98-108 6898609165) CO2 TOTAL (test code = 22 mmol/L 23-31 L 5752234958) AGAP (test code = 2-16 8909885210) BUN (test code = 20 mg/dL 7-23 8439082649) GLUCOSE (test code = 95 mg/dL 70-110 1852623311) CREATININE (test code = 0.90 mg/dL 0.60-1.25 8492421011) TOTAL BILI (test code = 0.6 mg/dL 0.1-1.8 7897196895) CALCIUM (test code = 9.5 mg/dL 8.6-10.6 4188664557) T PROTEIN (test code = 7.8 g/dL 6.3-8.2 3653535947) ALBUMIN (test code = 4.6 g/dL 3.5-5.0 4014006369) ALK PHOS (test code = 99 U/L 34-122 8872648809) ALTv (test code = 48 U/L 5-50 2-6) AST(SGOT) (test code = 35 U/L 13-40 2764258684) eGFR (test code = mL/min/1.73m2 7687229620) CATHERINE (test code = CATHERINE) Association of [...] tests). Lab Interpretation Abnormal (test code = 04965-4) [facility] WITH [id number] 23:58:57 Test Item Value Reference Range Interpretation Comments WBC (test code = See_Comment [Automated 0890-2) message] The sy stem which generated this result transmitted reference range : 4.20 - 10.70 10*3/?L. The reference range was not used to interpret this result as normal/abnormal . RBC (test code = See_Comment [Automated 789-8) message] The sy stem which generated this result transmitted reference range : 4.26 - 5.52 10*6/?L. The reference range was not used to interpret this result as normal/abnormal . HGB (test code = 15.5 g/dL 12.2-16.4 718-7) HCT (test code = 45.3 % 38.4-49.3 4544-3) MCV (test code = 92.1 fL 81.7-95.6 787-2) MCH (test code = 31.5 pg 26.1-32.7 785-6) MCHC (test code = 34.2 g/dL 31.2-35.0 786-4) RDW-SD (test code = 46.4 fL 38.5-51.6 37998-3) RDW-CV (test code = 13.6 % 12.1-15.4 788-0) PLT (test code = See_Comment H [Automated 777-3) message] The sy stem which generated this result transmitted reference range : 150 - 328 10*3/ ?L. The reference r richard was not used to interpret this result as normal/abnormal . MPV (test code = 9.6 fL 9.8-13.0 L 40624-7) NRBC/100 WBC (test See_Comment [Automat ed code = 6464055046) message] The system which generated this result transmitted reference range : 0.0 - 10.0 /100 WBCs. The refer ence range was not u sed to interpret th is result as normal/abnormal . NRBC x10^3 (test code <0.01 See_Comment [Auto mated = 2600371838) message] The s ystem which generated this result transmitted reference range : 10*3/?L. The reference range was not used to interpret this result as normal/abnormal . GRAN MAT (NEUT) % 63.3 % (test code = 770-8) IMM GRAN % (test code 0.40 % = 1988218846) LYMPH % (test code = 27.1 % 736-9) MONO % (test code = 6.7 % 5905-5) EOS % (test code = 1.8 % 713-8) BASO % (test code = 0.7 % 706-2) GRAN MAT x10^3(ANC) 5.21 10*3/uL 1.99-6.95 (test code = 0956910501) IMM GRAN x10^3 (test 0.03 10*3/uL 0.00-0.06 code = 6544128132) LYMPH x10^3 (test code 2.23 10*3/uL 1.09-3.23 = 731-0) MONO x10^3 (test code 0.55 10*3/uL 0.36-1.02 = 742-7) EOS x10^3 (test code = 0.15 10*3/uL 0.06-0.53 711-2) BASO x10^3 (test code 0.06 10*3/uL 0.01-0.09 = 704-7) Lab Interpretation Abnormal (test code = 58462-1) [facility]-Glucose [id number] 08:15:36 Test Item Value Reference Range Interpretation Comments POC-Glucose Meter (test 242 mg/dL 70-110 H : TE STED AT [facility] code = 1538) [address] [facility], [address]70 30: [employer]/Techni mati ID = [id number] for KARLOS CUELLO Lab Interpretation (test Abnormal code = 78690-5) [facility]-Glucose [id number] 08:15:36 Test Item Value Reference Range Interpretation Comments POC-Glucose Meter (test 242 mg/dL 70-110 H : TE STED AT [facility] code = 1538) [address] [place] [place], [address]: [employer]/Techni mati ID = [id number] for KARLOS CUELLO A Lab Interpretation (test Abnormal code = 66604-3) [facility] [id number] 08:15:36 Test Item Value Reference Range Interpretation Comments POC-GLUCOSE METER 242 mg/dL 70-110 H : TESTED A T [facility] 6720 (BEAKER) (test code = [place], 1538) [address]: [employer]/Techni mati ID = [id number] for AGUS WHITE Comprehensive metabolic [id number] 06:25:51 Test Item Value Reference Range Interpretation Comments Protein, Total (test 6.1 See_Comment [Autom ated code = 2885-2) message] The system which generated this result transmit mario reference range : 6.0 - 8.3 gm/dL . The reference range was not u sed to interpret th is result as normal/abnormal . Albumin (test code = 3.1 g/dL 3.5-5.0 L 91907-8) Alkaline Phosphatase 126 U/L 40-150 (test code = 6768-6) Total Bilirubin (test 0.5 mg/dL 0.2-1.2 code = 1975-2) Sodium (test code = 139 meq/L 958-748 8645-2) Potassium (test code 4.2 meq/L 3.5-5.1 = 2823-3) Chloride (test code = 101 meq/L 98-107 5-0) CO2 (test code = 29 meq/L 22-29 8-9) BUN (test code = 21 mg/dL 7-21 3094-0) Creatinine (test code 0.76 mg/dL 0.57-1.25 = 2160-0) Glucose (test code = 86 mg/dL 70-105 2345-7) Calcium (test code = 8.6 mg/dL 8.4-10.2 94492-7) AST (test code = 52 U/L 5-34 H 1920-8) ALT (test code = 162 U/L 6-55 H 1742-6) EGFR (test code = 106 mL/min/1.73 [place] [address]-0) NOT ACCURATE CREATININE CLEARANCE IN PREDICTING GLOMERULAR FILTRATION RATE . ESTIMATED GFR I S NOT APPLICABLE FOR DIALYSIS PATIEN TS. CATHERINE (test code = CATHERINE) [employer] ID - RIO G Lab Interpretation Abnormal (test code = 70172-3) [facility] [id number] 06:25:51 Test Item Value Reference Range Interpretation Comments Protein, Total (test 6.1 See_Comment [Autom ated code = 2885-2) message] The system which generated this result transmit mario reference range : 6.0 - 8.3 gm/dL . The reference range was not u sed to interpret th is result as normal/abnormal . Albumin (test code = 3.1 g/dL 3.5-5.0 L 84754-3) Alkaline Phosphatase 126 U/L 40-150 (test code = 6768-6) Total Bilirubin (test 0.5 mg/dL 0.2-1.2 code = 1975-2) Sodium (test code = 139 meq/L 242-211 4113-2) Potassium (test code 4.2 meq/L 3.5-5.1 = 2823-3) Chloride (test code = 101 meq/L 98-107 2075-0) CO2 (test code = 29 meq/L 22-29 2028-9) BUN (test code = 21 mg/dL 7-21 3094-0) Creatinine (test code 0.76 mg/dL 0.57-1.25 = 2160-0) Glucose (test code = 86 mg/dL 70-105 2345-7) Calcium (test code = 8.6 mg/dL 8.4-10.2 97196-7) AST (test code = 52 U/L 5-34 H 1920-8) ALT (test code = 162 U/L 6-55 H 1742-6) EGFR (test code = 106 mL/min/1.73 [place] [address]-5) NOT ACCURATE CREATININE CLEARANCE IN PREDICTING GLOMERULAR FILTRATION RATE . ESTIMATED GFR I S NOT APPLICABLE FOR DIALYSIS PATIEN TS. CATHERINE (test code = CATHERINE) [employer] ID - RIO G Lab Interpretation Abnormal (test code = 25372-7) [facility] [id number] 06:25:51 Test Item Value Reference Range Interpretation [...] S NOT APPLICABLE FOR DIALYSIS PATIEN TS. [employer] ID - RIO GPOCT-GLUCOSE [id number] 21:44:08 Test Item Value Reference Range Interpretation Comments POC-GLUCOSE METER 142 mg/dL 70-110 H : TESTED A T [facility] 6720 (BEAKER) (test code = [place], 1538) [address]: [employer]/Techni mati ID = [id number] for POOJA GARRETT POCT-GLUCOSE [id number] 17:26:09 Test Item Value Reference Range Interpretation Comments POC-GLUCOSE METER 73 mg/dL 70-110 : TESTED A T [facility] 6720 (BEAKER) (test code = [facility] Sulma [facility], 1538) [address]: [employer]/Techni mati ID = [id number] for Will Pradip tuckeriona POCT-GLUCOSE [id number] 11:53:01 Test Item Value Reference Range Interpretation Comments POC-GLUCOSE METER 76 mg/dL 70-110 : TESTED A T [facility] 6720 (BEAKER) (test code = [facility], 1538) [address]: [employer]/Techni mati ID = [id number] for Will Pradip tuckeriona Hemoglobin [id number] 07:46:10 Test Item Value Reference Range Interpretation Comments Hemoglobin A1C (test code = 4548-4) 6.7 % 4.3-6.1 H Lab Interpretation (test code = Abnormal 43231-6) [facility] [id number] 07:46:10 Test Item Value Reference Range Interpretation Comments Hemoglobin A1C (test code = 4548-4) 6.7 % 4.3-6.1 H Lab Interpretation (test code = Abnormal 28002-4) [facility] [id number] 07:46:10 Test Item Value Reference Range Interpretation Comments HEMOGLOBIN A1C (BEAKER) (test code = 6.7 % 4.3-6.1 H 368) POCT-GLUCOSE [id number] 07:30:32 Test Item Value Reference Range Interpretation Comments POC-GLUCOSE METER 75 mg/dL 70-110 : TESTED A T [facility] 6720 (BEAKER) (test code = [facility], 1538) [address]: [employer]/Techni mati ID = [id number] for Will Pradip tuckeriona HIV-1 Antigen with HIV-1/2 [id number] 06:28:29 Test Item Value Reference Range Interpretation Comments HIV-1 Antigen with HIV Nonreactive Nonreactive 1&2 Antibody (test code = 60252-3) CATHERINE (test code = CATHERINE) [employer] ID - TAVON M Lab Interpretation (test Normal code = 46565-9) [facility] Antigen with HIV-1/2 [id number] 06:28:29 Test Item Value Reference Range Interpretation Comments HIV-1 Antigen with HIV Nonreactive Nonreactive 1&2 Antibody (test code = 97807-4) CATHERINE (test code = CATHERINE) [employer] ID - [place] M Lab Interpretation (test Normal code = 51237-2) [facility] ANTIGEN WITH HIV-1/2 [id number] 06:28:29 Test Item Value Reference Range Interpretation Comments HIV-1 ANTIGEN WITH HIV 1\\T\\2 Nonreactive Nonreactive ANTIBODY (2) (BEAKER) (test code = 2586) [employer] ID - TAVON MHepatitis panel, [id number] 06:28:28 Test Item Value Reference Range Interpretation Comments Hep A IgM (test code = Nonreactive Nonreactive 82687-6) Hep B C IgM (test code = Nonreactive Nonreactive 82232-0) Hepatitis C Ab (test Nonreactive Nonreactive code = 95824-1) HBsAg Screen (test code Nonreactive Nonreactive = 5195-3) CATHERINE (test code = CATHERINE) [employer] ID - [place] M Lab Interpretation (test Normal code = 13601-0) [facility], [id number] 06:28:28 Test Item Value Reference Range Interpretation Comments Hep A IgM (test code = Nonreactive Nonreactive 82744-4) Hep B C IgM (test code = Nonreactive Nonreactive 47313-0) Hepatitis C Ab (test Nonreactive Nonreactive code = 24399-4) HBsAg Screen (test code Nonreactive Nonreactive = 5195-3) CATHERINE (test code = CATHERINE) [employer] ID - [place] M Lab Interpretation (test Normal code = 04137-2) [facility], [id number] 06:28:28 Test Item Value Reference Range Interpretation Comments HEPATITIS A IGM ANTIBODY (BEAKER) Nonreactive Nonreactive (test code = 498) HEPATITIS B CORE IGM ANTIBODY Nonreactive Nonreactive (BEAKER) (test code = 645) HEPATITIS C ANTIBODY (BEAKER) Nonreactive Nonreactive (test code = 367) HEPATITIS B SURFACE ANTIGEN (2) Nonreactive Nonreactive (BEAKER) (test code = 2585) [facility] - [place] MCOMPREHENSIVE METABOLIC [id number] 05:49:27 Test Item Value Reference Range Interpretation [...] S NOT APPLICABLE FOR DIALYSIS PATIEN TS. [facility] ID - [place] MPOCT-GLUCOSE [id number] 21:24:03 Test Item Value Reference Range Interpretation Comments POC-GLUCOSE METER 89 mg/dL 70-110 : TESTED A T [facility] 6720 (BEAKER) (test code = [place], 1538) 13297: [facility]/Techni mati ID = [id number] for BJORN SULTANA TRACY POCT-GLUCOSE [id number] 17:40:28 Test Item Value Reference Range Interpretation Comments POC-GLUCOSE METER 155 mg/dL 70-110 H : TESTED A T [facility] 6720 (BEAKER) (test code = [facility], 1538) [address]: [employer]/Techni mati ID = [id number] for Wi lliams, Areiona POCT-GLUCOSE [id number] 17:01:47 Test Item Value Reference Range Interpretation Comments POC-GLUCOSE METER 65 mg/dL 70-110 L : TESTED A T [facility] 6720 (BEAKER) (test code = [facility], 1538) [address]26: [employer]/Techni mati ID = [id number] for Will iams, Areiona POCT-GLUCOSE [id number] 12:39:04 Test Item Value Reference Range Interpretation Comments POC-GLUCOSE METER 155 mg/dL 70-110 H : TESTED A T [facility] 6720 (BEAKER) (test code = [facility], 1538) 33016: [employer]/Techni mati ID = [id number] for Wi lliams, Areiona POCT-GLUCOSE [id number] 08:39:54 Test Item Value Reference Range Interpretation Comments POC-GLUCOSE METER 82 mg/dL 70-110 : TESTED A T [facility] 6720 (BEAKER) (test code = [facility], 1538) 58323: [employer]/Techni mati ID = [id number] for Rina vazquez (contract)Gordy [id number] 05:28:52 Test Item Value Reference Range Interpretation Comments Magnesium (test code = 2.2 mg/dL 1.6-2.6 73310-7) CATHERINE (test code = CATHERINE) [employer] ID - NAYELI W Lab Interpretation (test Normal code = 78880-7) [facility] 05:28:52 Test Item Value Reference Range Interpretation Comments Magnesium (test code = 2.2 mg/dL 1.6-2.6 80674-0) CATHERINE (test code = CATHERINE) [employer] ID - NAYELI W Lab Interpretation (test Normal code = 04785-7) [facility] [id number] 05:28:52 Test Item Value Reference Range Interpretation [...] 347) EGFR (BEAKER) (test 95 mL/min/1.73 ESTIMA MARIO GFR IS code = 1092) sq m NOT ACCURATE CREATININE CLEARANCE IN PREDICTING GLOMERULAR FILTRATION RATE . ESTIMATED GFR I S NOT APPLICABLE FOR DIALYSIS PATIEN TS. [employer] ID - NAYELI [id number] 05:28:52 Test Item Value Reference Range Interpretation Comments MAGNESIUM (BEAKER) (test code = 2.2 mg/dL 1.6-2.6 627) [employer] ID - NAYELI WCBC (Hemogram only)2021-04-02 04:48:38 Test Item Value Reference Range Interpretation Comments WBC (test code = 6690-2) 10.4 See_Comment [A utomated message] The system [employer] generated this result transmitted ref erence range: 3.5 - 10 .5 K/L. The refe rence range was not u sed to interpret this result as normal/abnor mal. RBC (test code = 789-8) 4.26 See_Comment L [Au tomated message] The system [employer] generated this result transmitted ref erence range: 4.63 - 6 .08 M/L. The refe rence range was not u sed to interpret this result as normal/abnor mal. MCHC (test code = 786-4) 32.2 See_Comment L [A utomated message] The system [employer] generated this result transmitted ref erence range: 32.3 - 3 6.5 GM/DL. The refe rence range was not u sed to interpret this result as normal/abnor mal. Hematocrit (test code = 40.4 % 40.1-51.0 4544-3) MCV (test code = 787-2) 94.8 fL 79.0-92.2 H MCH (test code = 785-6) 30.5 pg 25.7-32.2 RDW (test code = 788-0) 14.3 % 11.6-14.4 Platelets (test code = 664 See_Comment H [Aut omated message] 777-3) The system [employer] generated this result transmitted ref erence range: 150 - 45 0 K/CU MM. The referen ce range was not u sed to interpret this result as normal/abnor mal. MPV (test code = 8.9 fL 9.4-12.4 L 60302-3) nRBC (test code = 413) 0 See_Comment [Aut omated message] The system [employer] generated this result transmitted ref erence range: 0 - 0 /1 00 WBC. The refere nce range was not u sed to interpret this result as normal/abnor mal. Lab Interpretation (test Abnormal code = 01993-2) [facility] (Hemogram only)2021-04-02 04:48:38 Test Item Value Reference Range Interpretation Comments WBC (test code = 6690-2) 10.4 See_Comment [A utomated message] The system [employer] generated this result transmitted ref erence range: 3.5 - 10 .5 K/L. The refe rence range was not u sed to interpret this result as normal/abnor mal. RBC (test code = 789-8) 4.26 See_Comment L [Au tomated message] The system [employer] generated this result transmitted ref erence range: 4.63 - 6 .08 M/L. The refe rence range was not u sed to interpret this result as normal/abnor mal. MCHC (test code = 786-4) 32.2 See_Comment L [A utomated message] The system [employer] generated this result transmitted ref erence range: 32.3 - 3 6.5 GM/DL. The refe rence range was not u sed to interpret this result as normal/abnor mal. Hematocrit (test code = 40.4 % 40.1-51.0 4544-3) MCV (test code = 787-2) 94.8 fL 79.0-92.2 H MCH (test code = 785-6) 30.5 pg 25.7-32.2 RDW (test code = 788-0) 14.3 % 11.6-14.4 Platelets (test code = 664 See_Comment H [Aut omated message] 777-3) The system [employer] generated this result transmitted ref erence range: 150 - 45 0 K/CU MM. The referen ce range was not u sed to interpret this result as normal/abnor mal. MPV (test code = 8.9 fL 9.4-12.4 L 95136-4) nRBC (test code = 413) 0 See_Comment [Aut omated message] The system [employer] generated this result transmitted ref erence range: 0 - 0 /1 00 WBC. The refere nce range was not u sed to interpret this result as normal/abnor mal. Lab Interpretation (test Abnormal code = 78923-3) [facility] (HEMOGRAM ONLY)2021-04-02 04:48:38 Test Item Value Reference [...] 0-0 (BEAKER) (test code = 413) POCT-GLUCOSE [id number] 16:52:32 Test Item Value Reference Range Interpretation Comments POC-GLUCOSE METER 140 mg/dL 70-110 H : TESTED A T [facility] 6720 (BEAKER) (test code [facility], = 1538) [address]: [employer]/Techni mati ID = [id number] for Tim Burr C-Reactive [id number] 11:34:46 Test Item Value Reference Range Interpretation Comments CRP (test code = 676) 1.16 mg/dL 0.00-0.50 H CATHERINE (test code = CATHERINE) [employer] ID - REBECCA Lab Interpretation (test Abnormal code = 30558-8) [facility] [id number] 11:34:46 Test Item Value Reference Range Interpretation Comments CRP (test code = 676) 1.16 mg/dL 0.00-0.50 H CATHERINE (test code = CATHERINE) [employer] ID - REBECCA Lab Interpretation (test Abnormal code = 50512-3) [facility] [id number] 11:34:46 Test Item Value Reference Range Interpretation Comments C-REACTIVE PROTEIN (BEAKER) (test 1.16 mg/dL 0.00-0.50 H code = 676) [employer] ID - EMERSONPOCT-GLUCOSE [id number] 11:33:45 Test Item Value Reference Range Interpretation Comments POC-GLUCOSE METER 132 mg/dL 70-110 H : TESTED A T [facility] 6720 (BEAKER) (test code [facility], = 1538) 96495: [employer]/Techni mati ID = [id number] for Tim Burr [id number] 10:04:08 Test Item Value Reference Range Interpretation Comments MAGNESIUM (BEAKER) 2.1 mg/dL 1.6-2.6 Specimen slightly (test code = 627) hemolyzed [employer] ID - PIAYA LCOMPREHENSIVE METABOLIC [id number] 10:04:08 Test Item Value Reference Range Interpretation [...] S NOT APPLICABLE FOR DIALYSIS PATIEN TS. [employer] ID - PIAYA LCBC (HEMOGRAM ONLY)2021-04-01 09:42:04 [...] 0-0 (BEAKER) (test code = 413) POCT-GLUCOSE [id number] 07:49:46 Test Item Value Reference Range Interpretation Comments POC-GLUCOSE METER 82 mg/dL 70-110 : TESTED A T [facility] 6720 (BEAKER) (test code [facility], = 1538) 34103: [employer]/Techni mati ID = [id number] for Tim Burr POCT-GLUCOSE [id number] 20:44:50 Test Item Value Reference Range Interpretation Comments POC-GLUCOSE METER 267 mg/dL 70-110 H : TESTED A T [facility] 6720 (BEAKER) (test code = [place], 1538) 879[address]: [employer]/Techni mati ID = [id number] for ISSAC WOODY POCT-GLUCOSE [id number] 16:53:59 Test Item Value Reference Range Interpretation Comments POC-GLUCOSE METER 158 mg/dL 70-110 H : TESTED A T [facility] 6720 (BEAKER) (test code = [place], 1538) 85454: [employer]/Techni mati ID = [id number] for JONATHAN JACKSON [id number] 09:32:55 Test Item Value Reference Range Interpretation Comments MAGNESIUM (BEAKER) (test code = 2.2 mg/dL 1.6-2.6 627) [employer] ID - GENA FCOMPREHENSIVE METABOLIC [id number] 09:32:54 Test Item Value Reference Range Interpretation [...] S NOT APPLICABLE FOR DIALYSIS PATIEN TS. [employer] ID - GENA FCBC (HEMOGRAM ONLY)2021-03-31 07:02:05 Test Item Value Reference [...] 0-0 (BEAKER) (test code = 413) C-REACTIVE [id number] 08:12:45 Test Item Value Reference Range Interpretation Comments C-REACTIVE PROTEIN 3.30 mg/dL See_Comment H [Automat ed message] (BEAKER) (test code The syst em which = 676) generated this result transmitted ref erence range: <=1.00. The reference range was not used to interpr et this result as normal/abnormal . COMPREHENSIVE METABOLIC [id number] 05:28:48 Test Item Value Reference Range Interpretation [...] S NOT APPLICABLE FOR DIALYSIS PATIEN TS. [employer] ID - TAVON [id number] 05:28:48 Test Item Value Reference Range Interpretation Comments MAGNESIUM (BEAKER) (test code = 2.2 mg/dL 1.6-2.6 627) [employer] ID - TAVON [facility]BC (HEMOGRAM ONLY)2021-03-30 05:28:09 [...] WBC 0-0 (BEAKER) (test code = 413) [id number] 05:08:00 Test Item Value Reference Range Interpretation Comments MAGNESIUM (BEAKER) 2.2 mg/dL 1.6-2.6 Specimen slightly (test code = 627) hemolyzed [employer] PRADEEP DAY LCOMPREHENSIVE METABOLIC [id number] 05:08:00 Test Item Value Reference Range Interpretation [...] S NOT APPLICABLE FOR DIALYSIS PATIEN TS. [employer] ID - SHAY LCOMPREHENSIVE METABOLIC [id number] 04:58:00 Test Item Value Reference Range Interpretation [...] S NOT APPLICABLE FOR DIALYSIS PATIEN TS. [employer] ID - TAVON [id number] 04:58:00 Test Item Value Reference Range Interpretation Comments MAGNESIUM (BEAKER) (test code = 2.0 mg/dL 1.6-2.6 627) [employer] ID - TAVON MC-REACTIVE [id number] 04:58:00 Test Item Value Reference Range Interpretation Comments C-REACTIVE PROTEIN (BEAKER) (test 4.52 mg/dL 0.00-0.50 H code = 676) [employer] PRADEEP MONTES DE OCA [facility] (HEMOGRAM ONLY)2021-03-28 04:40:00 Test Item Value [...] WBC 0-0 (BEAKER) (test code = 413) Rapid drug screen, [id number] 13:38:00 Test Item Value Reference Range Interpretation Comments Barbiturate Screen Negative Negative (test code = 29551-9) Benzodiazepine Screen Negative Negative (test code = 05003-1) Cocaine (Metab.) Negative Negative Screen (test code = 3397-7) Methadone Screen (test Negative Negative code = 77237-2) Opiate Screen (test Positive Negative A code = 24859-9) Cannabinoid Screen Negative Negative (test code = 93472-8) Amph/Methamph Screen Negative Negative (test code = 46814-6) Phencyclidine Screen Negative Negative (test code = 25210-1) pH, UA (test code = 7.0 5.0-8.0 5803-2) CATHERINE (test code = CATHERINE) DRUG CUTOFF CONC.Cocaine 300 ng/mL Cannabinoid 50 ng/mLBenzodiazepine 200 ng/mLBarbiturate 200 ng/mLPhencyclidine 25 ng/mLOpiate 300 ng/mLMethadone 300 ng/mLAmphetamine/ 1000 ng/mL Methamphetamine This assay provides an unconfirmed qualitative test result for the clinical management of patients in emergency situations. Chain of custody not maintained. Some kykn-zcc-bdcxrby medications, as well as adulterants, may cause inaccurate results. Clinical correlation should be applied. A more comprehensive drug screen or confirmation of a detected drug may be performed upon request.[employer] ID Mariel Dubonrator ID - [auto] Lab Interpretation Abnormal (test code = 46698-2) [facility], [id number] 13:38:00 Test Item Value Reference Range Interpretation Comments Barbiturate Screen Negative Negative (test code = 77661-5) Benzodiazepine Screen Negative Negative (test code = 03770-5) Cocaine (Metab.) Negative Negative Screen (test code = 3397-7) Methadone Screen (test Negative Negative code = 48260-4) Opiate Screen (test Positive Negative A code = 06859-9) Cannabinoid Screen Negative Negative (test code = 15173-0) Amph/Methamph Screen Negative Negative (test code = 95978-0) Phencyclidine Screen Negative Negative (test code = 89789-7) pH, UA (test code = 7.0 5.0-8.0 5803-2) CATHERINE (test code = CATHERINE) DRUG CUTOFF CONC.Cocaine 300 ng/mL Cannabinoid 50 ng/mLBenzodiazepine 200 ng/mLBarbiturate 200 ng/mLPhencyclidine 25 ng/mLOpiate 300 ng/mLMethadone 300 ng/mLAmphetamine/ 1000 ng/mL Methamphetamine This assay provides an unconfirmed qualitative test result for the clinical management of patients in emergency situations. Chain of custody not maintained. Some pchr-gzm-qhfmfjv medications, as well as adulterants, may cause inaccurate results. Clinical correlation should be applied. A more comprehensive drug screen or confirmation of a detected drug may be performed upon request.[employer] ID - SHAY Dubonrator ID - [auto] Lab Interpretation Abnormal (test code = 15870-6) [facility]CREEN, [id number] 13:38:00 Test Item Value Reference Range Interpretation [...] ng/mLOpiate 300 ng/mLMethadone 300 ng/mLAmphetamine/ 1000 ng/mL MethamphetamineThisassay provides an unconfirmed qualitative test result for the clinical management of patients in emergency situations. Chain of custody not maintained. Some dssu-buf-etuljto medications, as well as adulterants, may cause inaccurate results. Clinical correlation should be applied. A more comprehensive drug screen or confirmation of a detected drug may be performed upon request.[employer] ID - SHAY Hummeljamey ID - [auto]COMPREHENSIVE METABOLIC [id number] 07:04:00 Test Item Value Reference Range Interpretation [...] S NOT APPLICABLE FOR DIALYSIS PATIEN TS. [employer] ID - PIAYA LCBC (HEMOGRAM ONLY)2021-03-27 05:26:00 [...] (BEAKER) (test code = 413) COMPREHENSIVE METABOLIC [id number] 05:11:00 Test Item Value Reference Range Interpretation [...] S NOT APPLICABLE FOR DIALYSIS PATIEN TS. [employer] ID - TAVON [id number] 05:11:00 Test Item Value Reference Range Interpretation Comments MAGNESIUM (BEAKER) (test code = 2.3 mg/dL 1.6-2.6 627) [employer] ID - TAVON MC-REACTIVE [id number] 05:11:00 Test Item Value Reference Range Interpretation Comments C-REACTIVE PROTEIN (BEAKER) (test 9.39 mg/dL 0.00-0.50 H code = 676) [employer] PRADEEP MONTES DE [facility] (HEMOGRAM ONLY)2021-03-26 [...] (BEAKER) (test code = 413) COMPREHENSIVE METABOLIC [id number] 05:50:00 Test Item Value Reference Range Interpretation [...] S NOT APPLICABLE FOR DIALYSIS PATIEN TS. [employer] ID - [id number] 05:30:00 Test Item Value Reference Range Interpretation Comments Procalcitonin (test code = 0.11 ng/mL <0.05 H 14932-7) CATHERINE (test code = CATHERINE) SEPSIS RISK (ng/mL)Low: 0.05-0.50Intermedia te: 0.51-2.00High: >=2.01 Lab Interpretation (test Abnormal code = 85436-3) [facility] HospitalKilcakDvwgkxnunbumw0445-09-91 05:30:00 Test Item Value Reference Range Interpretation Comments Procalcitonin (test code = 0.11 ng/mL <0.05 H 37188-8) CATHERINE (test code = CATHERINE) SEPSIS RISK (ng/mL)Low: 0.05-0.50Intermedia te: 0.51-2.00High: >=2.01 Lab Interpretation (test Abnormal code = 54838-7) [facility] Hospital[id number] 05:30:00 Test Item Value Reference Range Interpretation [...] WBC 0-0 (BEAKER) (test code = 413) B-type Natriuretic Factor (BNP)2021-03-24 12:36:00 Test Item Value Reference Range Interpretation Comments BNP (test code = 64123-2) 70 pg/mL 0-100 CATHERINE (test code = CATHERINE) [employer] ID - AAHAMID Lab Interpretation (test Normal code = 23588-4) [facility] (BNP)2021-03-24 12:36:00 Test Item Value Reference Range Interpretation Comments BNP (test code = 01429-9) 70 pg/mL 0-100 CATHERINE (test code = CATHERINE) [employer] ID - AAHAMID Lab Interpretation (test Normal code = 62073-8) [facility] NATRIURETIC FACTOR (BNP)2021-03-24 12:36:00 Test Item Value Reference Range Interpretation Comments B-TYPE NATRIURETIC PEPTIDE (BEAKER) 70 pg/mL 0-100 (test code = 700) [employer] ID - AAHAMIDC-REACTIVE [id number] 12:28:00 Test Item Value Reference Range Interpretation Comments C-REACTIVE PROTEIN (BEAKER) (test 8.23 mg/dL 0.00-0.50 H code = 676) [employer] ID - [id number] 12:25:00 Test Item Value Reference Range Interpretation Comments Phosphorus (test code 3.2 mg/dL 2.3-4.7 Specim en = 2777-1) markedly hemolyzed CATHERINE (test code = CATHERINE) [employer] ID - aahamid Lab Interpretation Normal (test code = 57821-8) [facility]2021-[facility] 12:25:00 Test Item Value Reference Range Interpretation Comments Phosphorus (test code 3.2 mg/dL 2.3-4.7 Specim en = 2777-1) markedly hemolyzed CATHERINE (test code = CATHERINE) [employer] ID - aahamid Lab Interpretation Normal (test code = 26984-9) [facility]OSPHORUS2021-09-05 12:25:00 Test Item Value Reference Range Interpretation Comments PHOSPHORUS (BEAKER) 3.2 mg/dL 2.3-4.7 Specimen markedly (test code = 604) hemolyzed [employer] ID - aahamidRAD, CHEST, 1 VIEW, NON [id number] 12:09:00Reason for exam:->hypoxiaShould this be performed at the bedside?->Yes [facility] : 1965 Sex: MFINAL REPORT EXAM: Chest one view COMPARISON: March 21, 2021 CLINICAL HISTORY: Hypoxia FINDINGS: Bilateral patchy airway opacities are again noted with mild interval worsening. The cardiac size is within normal limits. There is no evidence of pleural effusion or pneumothorax. The regional osseous structures are unremarkable. Signed: Sylwia Valdez MDReport Verified Date/Time: 03/24/2021 12:09:06 Reading Location: [address] Consult Reading Room REHENSIVE METABOLIC [id number] 08:09:00 Test Item Value Reference Range Interpretation [...] hemolyzed EGFR (BEAKER) (test 94 mL/min/1.73 ESTIMA MARIO GFR IS code = 1092) sq m NOT ACCURATE CREATININE CLEARANCE IN PREDICTING GLOMERULAR FILTRATION RATE . ESTIMATED GFR I S NOT APPLICABLE FOR DIALYSIS PATIEN TS. [employer] ID - DBCOMPREHENSIVE METABOLIC [id number] 06:14:00 Test Item Value Reference Range Interpretation [...] S NOT APPLICABLE FOR DIALYSIS PATIEN TS. [employer] ID - TAVON MCBC with platelet count + automated [id number] 05:23:00 Test Item Value Reference Range Interpretation Comments WBC (test code = 6690-2) 13.4 See_Comment H [A utomated message] The system [employer] generated this result transmitted ref erence range: 3.5 - 10 .5 K/L. The refe rence range was not u sed to interpret this result as normal/abnor mal. RBC (test code = 789-8) 4.34 See_Comment L [Au tomated message] The system [employer] generated this result transmitted ref erence range: 4.63 - 6 .08 M/L. The refe rence range was not u sed to interpret this result as normal/abnor mal. MCHC (test code = 786-4) 33.2 See_Comment L [A utomated message] The system [employer] generated this result transmitted ref erence range: 32.3 - 3 6.5 GM/DL. The refe rence range was not u sed to interpret this result as normal/abnor mal. Hematocrit (test code = 39.4 % 40.1-51.0 L 4544-3) MCV (test code = 787-2) 90.8 fL 79.0-92.2 MCH (test code = 785-6) 30.2 pg 25.7-32.2 RDW (test code = 788-0) 13.7 % 11.6-14.4 Platelets (test code = 605 See_Comment H [Aut omated message] 777-3) The system [employer] generated this result transmitted ref erence range: 150 - 45 0 K/CU MM. The referen ce range was not u sed to interpret this result as normal/abnor mal. MPV (test code = 9.6 fL 9.4-12.4 06812-0) nRBC (test code = 413) 0 See_Comment [Aut omated message] The system [employer] generated this result transmitted ref erence range: 0 - 0 /1 00 WBC. The refere nce range was not u sed to interpret this result as normal/abnor mal. % Neutros (test code = 93 % 429) % Lymphs (test code = 3 % 430) % Monos (test code = 3 % 431) % Eos (test code = 432) 0 % % Baso (test code = 437) 0 % # Neutros (test code = 12.37 See_Comment H [Aut omated message] 670) The system [employer] generated this result transmitted ref erence range: 1.78 - 5 .38 K/L. The refe rence range was not u sed to interpret this result as normal/abnor mal. # Lymphs (test code = 0.41 See_Comment L [Auto mated message] 414) The system [employer] generated this result transmitted ref erence range: 1.32 - 3 .57 K/L. The refe rence range was not u sed to interpret this result as normal/abnor mal. # Monos (test code = 0.43 See_Comment [Autom ated message] 415) The system [employer] generated this result transmitted ref erence range: 0.30 - 0 .82 K/L. The refe rence range was not u sed to interpret this result as normal/abnor mal. # Eos (test code = 416) 0.00 See_Comment L [Au tomated message] The system [employer] generated this result transmitted ref erence range: 0.04 - 0 .54 K/L. The refe rence range was not u sed to interpret this result as normal/abnor mal. # Baso (test code = 417) 0.01 See_Comment [A utomated message] The system [employer] generated this result transmitted ref erence range: 0.01 - 0 .08 K/L. The refe rence range was not u sed to interpret this result as normal/abnor mal. Immature 1 % 0-1 Granulocytes-Relative (test code = 2801) Lab Interpretation (test Abnormal code = 46618-7) [facility] with platelet count + automated [id number] 05:23:00 Test Item Value Reference Range Interpretation Comments WBC (test code = 6690-2) 13.4 See_Comment H [A utomated message] The system [employer] generated this result transmitted ref erence range: 3.5 - 10 .5 K/L. The refe rence range was not u sed to interpret this result as normal/abnor mal. RBC (test code = 789-8) 4.34 See_Comment L [Au tomated message] The system [employer] generated this result transmitted ref erence range: 4.63 - 6 .08 M/L. The refe rence range was not u sed to interpret this result as normal/abnor mal. MCHC (test code = 786-4) 33.2 See_Comment L [A utomated message] The system [employer] generated this result transmitted ref erence range: 32.3 - 3 6.5 GM/DL. The refe rence range was not u sed to interpret this result as normal/abnor mal. Hematocrit (test code = 39.4 % 40.1-51.0 L 4544-3) MCV (test code = 787-2) 90.8 fL 79.0-92.2 MCH (test code = 785-6) 30.2 pg 25.7-32.2 RDW (test code = 788-0) 13.7 % 11.6-14.4 Platelets (test code = 605 See_Comment H [Aut omated message] 777-3) The system [employer] generated this result transmitted ref erence range: 150 - 45 0 K/CU MM. The referen ce range was not u sed to interpret this result as normal/abnor mal. MPV (test code = 9.6 fL 9.4-12.4 28739-2) nRBC (test code = 413) 0 See_Comment [Aut omated message] The system [employer] generated this result transmitted ref erence range: 0 - 0 /1 00 WBC. The refere nce range was not u sed to interpret this result as normal/abnor mal. % Neutros (test code = 93 % 429) % Lymphs (test code = 3 % 430) % Monos (test code = 3 % 431) % Eos (test code = 432) 0 % % Baso (test code = 437) 0 % # Neutros (test code = 12.37 See_Comment H [Aut omated message] 670) The system [employer] generated this result transmitted ref erence range: 1.78 - 5 .38 K/L. The refe rence range was not u sed to interpret this result as normal/abnor mal. # Lymphs (test code = 0.41 See_Comment L [Auto mated message] 414) The system [employer] generated this result transmitted ref erence range: 1.32 - 3 .57 K/L. The refe rence range was not u sed to interpret this result as normal/abnor mal. # Monos (test code = 0.43 See_Comment [Autom ated message] 415) The system [employer] generated this result transmitted ref erence range: 0.30 - 0 .82 K/L. The refe rence range was not u sed to interpret this result as normal/abnor mal. # Eos (test code = 416) 0.00 See_Comment L [Au tomated message] The system [employer] generated this result transmitted ref erence range: 0.04 - 0 .54 K/L. The refe rence range was not u sed to interpret this result as normal/abnor mal. # Baso (test code = 417) 0.01 See_Comment [A utomated message] The system [employer] generated this result transmitted ref erence range: 0.01 - 0 .08 K/L. The refe rence range was not u sed to interpret this result as normal/abnor mal. Immature 1 % 0-1 Granulocytes-Relative (test code = 2801) Lab Interpretation (test Abnormal code = 60517-8) [facility] W/PLT COUNT & AUTO [id number] 05:23:00 Test Item Value Reference Range Interpretation [...] 0-1 PERCENT (BEAKER) (test code = 2801) Cholesterol, [id number] 09:48:00 Test Item Value Reference Range Interpretation Comments Cholesterol (test code 110 mg/dL = 2093-3) CATHERINE (test code = CATHERINE) Cholesterol Reference Range: Low Risk <200 Borderline 200-239 High Risk >240 [employer] ID - DB [facility] [id number] 09:48:00 Test Item Value Reference Range Interpretation Comments Cholesterol (test code 110 mg/dL = 2093-3) CATHERINE (test code = CATHERINE) Cholesterol Reference Range: Low Risk <200 Borderline 200-239 High Risk >240 [employer] ID - DB [facility] [id number] 09:48:00 Test Item Value Reference Range Interpretation Comments CHOLESTEROL (BEAKER) (test code = 110 mg/dL 631) Cholesterol Reference Range: Low Risk <200 Borderline 200-239 High Risk >240 [employer] ID - DBCBC W/PLT COUNT & AUTO [id number] 06:40:00 Test Item Value Reference Range Interpretation [...] (BEAKER) (test code = 2801) COMPREHENSIVE METABOLIC [id number] 06:32:00 Test Item Value Reference Range Interpretation [...] 1092) DATA TO CALCULA TE ESTIMATED GFR. [employer] ID - [id number] 06:28:00 Test Item Value Reference Range Interpretation Comments MAGNESIUM (BEAKER) (test code = 2.4 mg/dL 1.6-2.6 627) [employer] ID - DBLactic acid, [id number] 05:23:00 Test Item Value Reference Range Interpretation Comments Lactate, Venous (test code = 1.11 mmol/L 0.50-2.20 2872) CATHERINE (test code = CATHERINE) [employer] ID - DB Lab Interpretation (test Normal code = 61815-2) [facility], [id number] 05:23:00 Test Item Value Reference Range Interpretation Comments Lactate, Venous (test code = 1.11 mmol/L 0.50-2.20 2872) CATHERINE (test code = CATHERINE) [employer] ID - DB Lab Interpretation (test Normal code = 43521-2) [facility], [id number] 05:23:00 Test Item Value Reference Range Interpretation Comments LACTATE BLOOD VENOUS (2) (BEAKER) 1.11 mmol/L 0.50-2.20 (test code = 2872) [employer] ID - DBRAD, CHEST, 1 VIEW, NON [id number] 04:43:00Reason for exam:- >covidShould this be performed at the bedside?->Yes [facility] : 1965 Sex: MFINAL REPORT INDICATION: covid COMPARISON: None TECHNIQUE: Single frontal view of the chest. IMPRESSION: Lungs and pleura: Hypoinflated lungs with moderately extensive bilateral peripheral lung opacities compatible with Covid 19 pneumonia. No effusion.Heart and mediastinum: Normal heart size. Unremarkable mediastinal contours.Osseous structures: No acute abnormality. Partially imaged cervical spine fusion hardware.Other: None. Signed: Maria De Jesus Perla MDReport Verified Date/Time: 03/22/2021 04:43:09 -[id number] 19:24:00 Test Item Value Reference Range Interpretation Comments D-Dimer, Quant (test 1.96 See_Comment H [Autom ated code = 03108-2) message] The system which generated this result transmitted reference range : <0.50 MG/L FEU. The reference range was not used to interpr et this result as normal/abnormal . CATHERINE (test code = CATHERINE) Intended Use: The D-Dimer Assay can be used to aid in the diagnosis of Deep Vein Thrombosis (DVT) and Pulmonary Embolism Disease (PED).In patients with low pre-test probability, various studies concerning STA Liatest D-dimer test have reported that with a cutoff value of 0.50 MG/L FEU, the Negative Predictive Value (NPV) regarding the exclusion of thrombosis is within 95-100% range. Lab Interpretation Abnormal (test code = 62675-1) [facility] Hospital[facility]-[id number] 19:24:00 Test Item Value Reference Range Interpretation Comments D-Dimer, Quant (test 1.96 See_Comment H [Autom ated code = 65483-2) message] The system which generated this result transmitted reference range : <0.50 MG/L FEU. The reference range was not used to interpr et this result as normal/abnormal . CATHERINE (test code = CATHERINE) Intended Use: The D-Dimer Assay can be used to aid in the diagnosis of Deep Vein Thrombosis (DVT) and Pulmonary Embolism Disease (PED).In patients with low pre-test probability, various studies concerning STA Liatest D-dimer test have reported that with a cutoff value of 0.50 MG/L FEU, the Negative Predictive Value (NPV) regarding the exclusion of thrombosis is within 95-100% range. Lab Interpretation Abnormal (test code = 49446-4) [facility]-[id number] 19:24:00 Test Item Value Reference Range Interpretation [...] exclusion of thrombosis is within 95-100% range. [id number] 19:22:00 Test Item Value Reference Interpretation Comments Range Protime (test code = 15.3 See_Comment H [Autom ated 5902-2) message] The system which generated this result transmitted reference range : 11.9 - 14.2 seconds. The reference range was not used to interpret this result as normal/abnormal . INR (test code = 1.23 See_Comment [Automated 7891-6) message] The system which generated this result transmitted reference range : <=5.90. The reference range was not used to interpret this result as normal/abnormal . PTT (test code = 26.9 See_Comment [Automated 41199-7) message] The system which generated this result transmitted reference range : 22.5 - 36.0 seconds. The reference range was not used to interpret this result as normal/abnormal . CATHERINE (test code = RECOMMENDED CATHERINE) COUMADIN/WARFARIN INR THERAPY RANGESSTANDARD DOSE: 2.0 - 3.0 Includes: PROPHYLAXIS for venous thrombosis, systemic embolization; TREATMENT for venous thrombosis and/or pulmonary embolus.HIGH RISK: Target INR is 2.5-3.5 for patients with mechanical heart valves. Lab Interpretation Abnormal (test code = 10204-5) [facility]PT/[id number] 19:22:00 Test Item Value Reference Interpretation Comments Range Protime (test code = 15.3 See_Comment H [Autom ated 5902-2) message] The system which generated this result transmitted reference range : 11.9 - 14.2 seconds. The reference range was not used to interpret this result as normal/abnormal . INR (test code = 1.23 See_Comment [Automated 7831-6) message] The system which generated this result transmitted reference range : <=5.90. The reference range was not used to interpret this result as normal/abnormal . PTT (test code = 26.9 See_Comment [Automated 78291-0) message] The system which generated this result transmitted reference range : 22.5 - 36.0 seconds. The reference range was not used to interpret this result as normal/abnormal . CATHERINE (test code = RECOMMENDED CATHERINE) COUMADIN/WARFARIN INR THERAPY RANGESSTANDARD DOSE: 2.0 - 3.0 Includes: PROPHYLAXIS for venous thrombosis, systemic embolization; TREATMENT for venous thrombosis and/or pulmonary embolus.HIGH RISK: Target INR is 2.5-3.5 for patients with mechanical heart valves. Lab Interpretation Abnormal (test code = 83485-9) [facility] HospitalPT/[id number] 19:22:00 Test Item Value Reference Range Interpretation [...] RANGESSTANDARD DOSE: 2.0 - 3.0 Includes: PROPHYLAXIS for venous thrombosis, systemic embolization; TREATMENT for venous thrombosis and/or pulmonary embolus.HIGH RISK: Target INR is 2.5-3.5 for patients with mechanical heart valves.COMPREHENSIVE METABOLIC PANEL 2021-03-21 19:18:00 Test Item Value Reference Range Interpretation [...] 1092) DATA TO CALCULA TE ESTIMATED GFR. [employer] ID - DBHigh Sensitivity Troponin I ([facility]/[place] Only)2021-03-21 19:17:00 Test Item Value Reference Range Interpretation Comments Troponin I HS (test 5 pg/ml See_Comment [[employer] code = 37068-8) message] The system which generated this result transmitted reference range : <=35. The reference range was not used to interpret this result as normal/abnormal . CATHERINE (test code = [employer] ID - CATHERINE) DBThe ACCOUNTING TECHNICIAN STAT High Sensitivity Troponin-I results should be used in conjunction with other diagnostic information such as ECG, clinical observations and information, and patient symptoms to aid in the diagnosis of TX. Lab Interpretation Normal (test code = 10234-8) [facility] [facility] 2021-03-21 19:17:00 Test Item Value Reference Range Interpretation Comments Troponin I HS (test 5 pg/ml See_Comment [[employer] mario code = 91784-8) message] The system which generated this result transmitted reference range : <=35. The reference range was not used to interpret this result as normal/abnormal . CATHERINE (test code = [employer] ID - CATHERINE) DBThe ACCOUNTING TECHNICIAN STAT High Sensitivity Troponin-I results should be used in conjunction with other diagnostic information such as ECG, clinical observations and information, and patient symptoms to aid in the diagnosis of TX. Lab Interpretation Normal (test code = 76912-2) [facility] TROPONIN [id number] 19:17:00 Test Item Value Reference Range Interpretation Comments HIGH SENSITIVITY 5 pg/ml See_Comment [Automated message] TROPONIN I (test code = The system which 7018842) generated this result transmitted ref erence range: <=35. Th e reference range was not used to interpr et this result as normal/abnormal . [employer] ID - DBThe ACCOUNTING TECHNICIAN STAT High Sensitivity Troponin-I results should be used in conjunctionwith other diagnostic information such as ECG, clinical observations and information, and patient symptoms to aid in the diagnosis of TX.C-REACTIVE [id number] 19:11:00 Test Item Value Reference Range Interpretation Comments C-REACTIVE PROTEIN (BEAKER) (test 31.92 mg/dL 0.00-0.50 H code = 676) [employer] ID - DBLACTIC ACID, [id number] 19:05:00 Test Item Value Reference Range Interpretation Comments LACTATE BLOOD VENOUS (2) (BEAKER) 1.44 mmol/L 0.50-2.20 (test code = 2872) [employer] ID - DBCBC (HEMOGRAM ONLY)2021-03-21 18:54:00 Test [...] Positive Not Detected A (test code = 45451-2) CATHERINE (test code = CATHERINE) ID NOW COVID-19 Assay is an isothermal nucleic acid amplification test intended for the qualitative detection of nucleic acid from SARS-CoV-2 viral RNA in nasopharyngeal (BILL CHECKER) specimens. It is used under Emergency Use [...] indicated. Lab Interpretation Abnormal (test code = 25718-5) [facility]APID TESTING)2021-03-16 22:01:20 Test Item Value Reference Range Interpretation Comments SARS-CoV-2 Rapid ID NOW (test code = Positive Not Detected A 29015-0) CATHERINE (test code = CATHERINE) Lab Interpretation (test code = Abnormal 08668-8) [facility] CenterMAR[facility] [id number] 23:59:00 Test Item Value Reference Range Interpretation Comments TROPONIN I (test <0.012 See_Comment [Automated code = 3761500018) message] The system which generated this result [...] ? Lab Interpretation Normal (test code = 50947-5) [facility] CenterXR [facility] 1 [id number] 22:22:50 No acute cardiopulmonary abnormality. Increasing prominence [...] limits. There is no acute osseous abnormality. Nymb, Radiant Results Inft User - 01/12/2020 5:23 PM CDTXR CHEST 1 VWHISTORY: 54 years-old; Male; chest pain COMPARISON: 07/19/2018TECHNIQUE: SINGLE VIEW CHEST RADIOGRAPH.FINDINGS:The lungs are well-expanded and clear with no focal consolidation. There isno pleural effusion or pneumothorax.The cardiac silhouette is within normal limits.There is no acute osseous abnormality.IMPRESSIONNo acute cardiopulmonary abnormality.Increasing prominence ofthe left perihilar density projecting betweenposterior left sixth and seventh ribs. Findings may represent prominentlymph node versus vasculature. Correlate clinically. This could be furthercharacterized with cross-sectional imaging.Preliminary Report Dictated by Resident: Sam Cancino, Josue Erazo MD., have reviewed this study and agree with theabove report.[facility] CenterTR[facility] I 2020-01-12 21:26:00 Test Item Value Reference Range Interpretation Comments TROPONIN I (test <0.012 See_Comment [Automated code = 1783343574) message] The system which generated this result [...] ? Lab Interpretation Normal (test code = 45942-2) [facility] CenterCOMP. METABOLIC PANEL (22478)2020-01-12 21:15:00 Test Item Value Reference Range Interpretation Comments NA (test code = 141 mmol/L 135-145 3435479577) K (test code = 3.9 mmol/L 3.5-5 7459589231) CL (test code = 105 mmol/L 98-108 6872462080) CO2 TOTAL (test code = 26 mmol/L 23-31 5869204300) AGAP (test code = 2-16 0513597953) BUN (test code = 20 mg/dL 7-23 8201994509) GLUCOSE (test code = 129 mg/dL 70-110 H 8701497891) CREATININE (test code = 0.86 mg/dL 0.6-1.25 9599432770) TOTAL BILI (test code = 0.4 mg/dL 0.1-1.0 7392096080) CALCIUM (test code = 9.5 mg/dL 8.6-10.6 3048775858) T PROTEIN (test code = 8.4 g/dL 6.3-8.2 H 2078851541) ALBUMIN (test code = 4.5 g/dL 3.5-5 1076542615) ALK PHOS (test code = 73 U/L 34-122 1154767017) ALTv (test code = 81 U/L 5-50 H 1742-6) AST(SGOT) (test code = 48 U/L 13-40 H 9587834164) eGFR Calculation mL/min/1.73m2 (Non-) (test code = 2534328539) eGFR Calculation mL/min/1.73m2 () (test code = 7426441364) CATHERINE (test code = CATHERINE) Association of [...] tests). Lab Interpretation Abnormal (test code = 25591-1) [facility] WITH [id number] 21:05:00 Test Item Value Reference Range Interpretation Comments WBC (test code = See_Comment [Automated 6190-2) message] The sy stem which generated this result transmitted reference range : 4.20 - 10.70 10*3/?L. The reference range was not used to interpret this result as normal/abnormal . RBC (test code = See_Comment [Automated 789-8) message] The sy stem which generated this [...] RDW-SD (test code = 44.8 fL 38.5-51.6 57302-1) RDW-CV (test code = 13.1 % 12.1-15.4 788-0) PLT (test code = See_Comment H [Automated 777-3) message] The sy stem which generated this result transmitted reference range : 150 - 328 10*3/ ?L. The reference r richard was not used to interpret this result as normal/abnormal . MPV (test code = 9.6 fL 9.8-13 L 77928-2) NRBC/100 WBC (test See_Comment [Aut[employer] ed code = 6906401103) message] The system which generated this result transmitted reference range : 0.0 - 10.0 /100 WBCs. The refer ence range was not u sed to interpret th is result as normal/abnormal . NRBC x10^3 (test code <0.01 See_Comment [Auto mated = 8494871172) message] The s ystem which generated this result transmitted reference range : 10*3/?L. The reference range was not used to interpret this result as normal/abnormal . GRAN MAT (NEUT) % 63.2 % (test code = 770-8) IMM GRAN % (test code 0.60 % = 0650931409) LYMPH % (test code = 26.6 % 736-9) MONO % (test code = 7.5 % 5905-5) EOS % (test code = 1.3 % 713-8) BASO % (test code = 0.8 % 706-2) GRAN MAT x10^3(ANC) 4.53 10*3/uL 1.99-6.95 (test code = 1700534808) IMM GRAN x10^3 (test 0.04 10*3/uL 0-0.06 code = 3579718774) LYMPH x10^3 (test code 1.91 10*3/uL 1.09-3.23 = 731-0) MONO x10^3 (test code 0.54 10*3/uL 0.36-1.02 = 742-7) EOS x10^3 (test code = 0.09 10*3/uL 0.06-0.53 711-2) BASO x10^3 (test code 0.06 10*3/uL 0.01-0.09 = 704-7) Lab Interpretation Abnormal (test code = 43694-8) [facility]"
--- NOTE | 2022-12-23 14:08 | ER ---
Nurse's Notes [facility] Name: Karli Garcia Age: 57 yrs Sex: Male : 1965 Arrival Date: 12/23/2022 Time: 11:47 Bed 10 Private MD: Diagnosis: Unstable angina;Chest pain, unspecified;Essential (primary) hypertension;Hyperlipidemia, unspecified Presentation: 12/23 11:57 Chief complaint: Patient states: chest pain episode that lasted a few minutes aa5 yesterday, denies any other episodes, reports being sent here by [facility]. 11:57 Coronavirus screen: At this time, the client does not indicate any symptoms associated aa5 with coronavirus-19. Ebola Screen: Patient denies travel to an Ebola-affected area in the 21 days before illness onset. Initial Sepsis Screen: Does the patient meet any 2 criteria? No. Patient's initial sepsis screen is negative. Does the patient have a suspected source of infection? No. Patient's initial sepsis screen is negative. Risk Assessment: Do you want to hurt yourself or someone else? Patient reports no desire to harm self or others. Onset of symptoms was December 22, 2022. 11:57 Acuity: ANTHONY 3 aa5 11:57 Method Of Arrival: Ambulatory aa5 Historical: - Allergies: 11:58 No Known Allergies; aa5 - Home Meds: 11:58 unknown BP medication [Active]; aa5 - PMHx: 11:58 Hypertensive disorder; Chronic back pain; aa5 - Immunization history:: Adult Immunizations unknown. - Social history:: Smoking status: Patient denies any tobacco usage or history of. - Family history:: pertinent for. Screenin:40 [facility] ED Fall Risk Assessment (Adult) History of falling in the last 3 months, mb9 including since admission No falls in past 3 months (0 pts) Confusion or Disorientation No (0 pts) Intoxicated or Sedated No (0 pts) Impaired Gait No (0 pts) Mobility Assist Device Used No (0 pt) Altered Elimination No (0 pt) Score/Fall Risk Level 0 - 2 = Low Risk Oriented to surroundings, Maintained a safe environment, Educated pt \T\ family on fall prevention, incl call for assistance when getting out of bed. Abuse screen: Denies threats or abuse. Nutritional screening: No deficits noted. Tuberculosis screening: No symptoms or risk factors identified. Assessment: 12:42 General: Appears in no apparent distress. Behavior is calm, cooperative, appropriate mb9 for age. Pain: Denies pain. Neuro: Barnett Agitation-Sedation Scale (RASS): 0 - Alert and Calm Level of Consciousness is awake, alert, obeys commands, Oriented to person, place, time, situation, Appropriate for age. Cardiovascular: Reports chest pain, since intermittently Heart tones S1 S2 present. Respiratory: Airway is patent Respiratory effort is even, unlabored, Respiratory pattern is regular, symmetrical, Denies shortness of breath. GI: Patient currently denies nausea. Derm: Skin is pink, warm \T\ dry. Musculoskeletal: Range of motion: intact in all extremities. 13:44 Reassessment: No changes from previously documented assessment. Patient and/or family mb9 updated on plan of care and expected duration. Pain level reassessed. Patient is alert, oriented x 3, equal unlabored respirations, skin warm/dry/pink. 14:36 Reassessment: Pt states he would rather me transferred to [facility]. ERP notified. mb9 16:23 Reassessment: No changes from previously documented assessment. Patient and/or family mb9 updated on plan of care and expected duration. Pain level reassessed. Patient is alert, oriented x 3, equal unlabored respirations, skin warm/dry/pink. 16:28 Reassessment: Report given to transferring nurse at [facility] KENZIE Gonsalez. mb9 19:26 Reassessment: Report given to [facility]. mb9 Vital Signs: 11:57 BP 143 / 99; Pulse 64; Resp 18 S; Temp 98(TE); Pulse Ox 100% on R/A; Weight 77.11 kg; aa5 Height 5 ft. 5 in. (R); 12:44 BP 131 / 101; Pulse 88; Resp 18; Pulse Ox 100% on R/A; Pain 0/10; mb9 13:44 BP 131 / 84; Pulse 65; Resp 16; Pulse Ox 100% on R/A; Pain 0/10; mb9 15:24 BP 143 / 93; Pulse 74; Resp 18; Pulse Ox 99% on R/A; Pain 0/10; mb9 16:23 BP 135 / 89; Pulse 68; Resp 17; Pulse Ox 99% on R/A; mb9 18:33 BP 155 / 84; Pulse 70; Resp 18; Pulse Ox 97% on R/A; mb9 11:57 Body Mass Index 28.29 (77.11 kg, 165.1 cm) aa5 12:44 Pain Scale: Adult mb9 13:44 Pain Scale: Adult mb9 15:24 Pain Scale: Adult mb9 ED Course: 11:50 Patient arrived in ED. mr 11:57 Jimmie Ye MD is Attending Physician. norberto 11:58 Arm band placed on. aa5 12:01 Triage completed. aa5 12:09 Beatriz Johnson, RN is Primary Nurse. mb9 12:29 Basic Metabolic Panel Sent. mb9 12:29 CBC with Diff Sent. mb9 12:29 LFT's Sent. mb9 12:29 Magnesium Sent. mb9 12:29 NT PRO-BNP Sent. mb9 12:29 PT-INR Sent. mb9 12:29 Troponin HS Sent. mb9 12:40 Placed in gown. Bed in low position. Call light in reach. Side rails up X 1. Client mb9 placed on continuous cardiac and pulse oximetry monitoring. NIBP monitoring applied. dog bather on. 12:40 No provider procedures requiring assistance completed. Inserted saline lock: 20 gauge mb9 in right forearm, using aseptic technique. 12:40 EKG done, by ED staff, reviewed by Jimmie Ye MD. mb9 13:02 XRAY Chest (1 view) In Process Unspecified. EDMS 14:07 Jake Eugene MD is Hospitalizing Provider. norberto 14:46 initiated transfer to [facility]. bd 16:28 Patient transferred, IV remains in place. mb9 Administered Medications: 14:07 Not Given (Patient Refused): Enoxaparin Sub-Q 1 mg/kg Sub-Q once mb9 14:07 Drug: Aspirin PO Chewable Tablet 162 mg Route: PO; mb9 16:29 Follow up: Response: No adverse reaction mb9 Medication: 12:41 VIS not applicable for this client. mb9 Outcome: 14:08 Decision to Hospitalize by Provider. norberto 14:35 ER care complete, transfer ordered by . norberto 16:28 Transferred to [facility] Transfer form completed. X-rays sent mb9 w/ patient. 16:28 Condition: stable 16:28 Instructed on the need for transfer. 19:26 Patient left the ED. mb9 Signatures: Dispatcher [employer] EDMS Sharla Martinez Corey, MD MD cha Rivera, Grace Mera RN RN aa5 Beatriz Johnson RN RN mb9 Corrections: (The following items were deleted from the chart) 11:59 11:58 Home Meds: None; aa5 aa5
--- NOTE | 2022-12-23 14:09 | EDPHYS ---
Physician Documentation [facility] Name: Karli Garcia Age: 57 yrs Sex: Male : 1965 Arrival Date: 12/23/2022 Time: 11:47 Bed 10 Private MD: ED Physician Jimmie Ye HPI: 12/23 13:57 This 57 yrs old Male presents to ER via Ambulatory with complaints of Chest norberto Pain - sent by [facility]. 13:57 The patient or guardian reports chest pain that is located primarily in the substernal norberto area, anterior chest wall, right. Onset: yesterday. The pain does not radiate. Associated signs and symptoms: The patient has no apparent associated signs or symptoms. The chest pain is described as a pressure. Modifying factors: The symptoms are alleviated by nothing. the symptoms are aggravated by nothing. Severity of pain: At its worst the pain was moderate severe in the emergency department the pain is unchanged. The patient has experienced similar episodes in the past, several times. Historical: - Allergies: 11:58 No Known Allergies; aa5 - Home Meds: 11:58 unknown BP medication [Active]; aa5 - PMHx: 11:58 Hypertensive disorder; Chronic back pain; aa5 - Immunization history:: Adult Immunizations unknown. - Social history:: Smoking status: Patient denies any tobacco usage or history of. - Family history:: pertinent for. ROS: 13:57 Constitutional: Negative for fever, chills, and weight loss, Eyes: Negative for injury, norberto pain, redness, and discharge, ENT: Negative for injury, pain, and discharge, Neck: Negative for injury, pain, and swelling, Respiratory: Negative for shortness of breath, cough, wheezing, and pleuritic chest pain, Abdomen/GI: Negative for abdominal pain, nausea, vomiting, diarrhea, and constipation, Back: Negative for injury and pain, : Negative for injury, bleeding, discharge, and swelling, MS/Extremity: Negative for injury and deformity, Skin: Negative for injury, rash, and discoloration, Neuro: Negative for headache, weakness, numbness, tingling, and seizure. 13:57 Cardiovascular: Positive for chest pain, of the chest. Exam: 13:57 Constitutional: This is a well developed, well nourished patient who is awake, alert, norberto and in no acute distress. Head/Face: Normocephalic, atraumatic. Eyes: Pupils equal round and reactive to light, extra-ocular motions intact. Lids and lashes normal. Conjunctiva and sclera are non-icteric and not injected. Cornea within normal limits. Periorbital areas with no swelling, redness, or edema. ENT: Nares patent. No nasal discharge, no septal abnormalities noted. Tympanic membranes are normal and external auditory canals are clear. Oropharynx with no redness, swelling, or masses, exudates, or evidence of obstruction, uvula midline. Mucous membranes moist. Neck: Trachea midline, no thyromegaly or masses palpated, and no cervical lymphadenopathy. Supple, full range of motion without nuchal rigidity, or vertebral point tenderness. No Meningismus. Chest/axilla: Normal chest wall appearance and motion. Nontender with no deformity. No lesions are appreciated. Respiratory: Lungs have equal breath sounds bilaterally, clear to auscultation and percussion. No rales, rhonchi or wheezes noted. No increased work of breathing, no retractions or nasal flaring. Abdomen/GI: Soft, non-tender, with normal bowel sounds. No distension or tympany. No guarding or rebound. No evidence of tenderness throughout. Back: No spinal tenderness. No costovertebral tenderness. Full range of motion. Male : Normal genitalia with no discharge or lesions. Skin: Warm, dry with normal turgor. Normal color with no rashes, no lesions, and no evidence of cellulitis. MS/ Extremity: Pulses equal, no cyanosis. Neurovascular intact. Full, normal range of motion. Neuro: Awake and alert, GCS 15, oriented to person, place, time, and situation. Cranial nerves II-XII grossly intact. Motor strength 5/5 in all extremities. Sensory grossly intact. Cerebellar exam normal. Normal gait. Psych: Awake, alert, with orientation to person, place and time. Behavior, mood, and affect are within normal limits. 13:57 Chest/axilla: Inspection: normal, Palpation: is normal, Axilla: are normal, no acute changes, Lymph nodes: lymphadenopathy is not appreciated. 13:57 Cardiovascular: Rate: normal, Rhythm: regular, Pulses: Pulses are 4+ in bilateral radial, brachial, femoral, popliteal, posterior tibial and and dorsalis pedis arteries.. Heart sounds: normal, Edema: is not appreciated, JVD: is not appreciated. 13:57 ECG was reviewed by the Attending Physician. Vital Signs: 11:57 BP 143 / 99; Pulse 64; Resp 18 S; Temp 98(TE); Pulse Ox 100% on R/A; Weight 77.11 kg; aa5 Height 5 ft. 5 in. (R); 12:44 BP 131 / 101; Pulse 88; Resp 18; Pulse Ox 100% on R/A; Pain 0/10; mb9 13:44 BP 131 / 84; Pulse 65; Resp 16; Pulse Ox 100% on R/A; Pain 0/10; mb9 15:24 BP 143 / 93; Pulse 74; Resp 18; Pulse Ox 99% on R/A; Pain 0/10; mb9 16:23 BP 135 / 89; Pulse 68; Resp 17; Pulse Ox 99% on R/A; mb9 18:33 BP 155 / 84; Pulse 70; Resp 18; Pulse Ox 97% on R/A; mb9 11:57 Body Mass Index 28.29 (77.11 kg, 165.1 cm) aa5 12:44 Pain Scale: Adult mb9 13:44 Pain Scale: Adult mb9 15:24 Pain Scale: Adult mb9 MDM: 11:58 Patient medically screened. norberto 14:03 Differential diagnosis: abnormal EKG, acute myocardial infarction, acute pericarditis, norberto anxiety, coronary artery disease chest wall pain, Cholelithiasis pericarditis, pleurisy, pulmonary embolus, stable angina, unstable angina. HEART Score: History: Moderately Suspicious (1), ECG: Normal (0), Age: > 45 and < 65 years (1), Risk Factors: > or = 3 Risk factors for atherosclerotic disease (2), [Hypertension] Troponin: < or = 1 x Normal Limit (0). The patient was given aspirin in the Emergency Department. KALA Risk Score: 1 - Three or more CAD risk factors, 1 - ASA use in past 7 days, TOTAL SCORE = 2. Data reviewed: vital signs, nurses notes, EMS record, lab test result(s), EKG, radiologic studies, plain films. Consideration of Admission/Observation Patient was admitted/placed on observation. Escalation of care including admission/observation considered. I considered the following discharge prescriptions or medication management in the emergency department Medications were administered in the Emergency Department. See MAR. Test considered but Not performed: CT: no ct chest ro pe. Care significantly affected by the following chronic conditions: Hypertension, chronic back pain. Counseling: I had a detailed discussion with the patient and/or guardian regarding: the historical points, exam findings, and any diagnostic results supporting the discharge/admit diagnosis, the presence of at least one elevated blood pressure reading (>120/80) during this emergency department visit, lab results, radiology results, the need for further work-up and treatment in the hospital. 12/23 11:58 Order name: Basic Metabolic Panel; Complete Time: 13:57 [facility] 12/23 11:58 Order name: CBC with Diff; Complete Time: 13:57 [facility] 12/23 11:58 Order name: LFT's; Complete Time: 13:57 [facility] 12/23 11:58 Order name: Magnesium; Complete Time: 13:57 [facility] 12/23 11:58 Order name: NT PRO-BNP; Complete Time: 13:57 [facility] 12/23 11:58 Order name: PT-INR; Complete Time: 13:57 [facility] 12/23 11:58 Order name: Troponin HS; Complete Time: 13:57 [facility] 12/23 11:58 Order name: XRAY Chest (1 view); Complete Time: 13:57 [facility] 12/23 11:58 Order name: EKG; Complete Time: 11:59 [facility] 12/23 11:58 Order name: Cardiac monitoring; Complete Time: 12:17 [facility] 12/23 11:58 Order name: EKG - Nurse/Tech; Complete Time: 12:29 [facility] 12/23 11:58 Order name: IV Saline Lock; Complete Time: 12:29 [facility] 12/23 11:58 Order name: Labs collected and sent; Complete Time: 12:29 [facility] 12/23 11:58 Order name: O2 Per Protocol; Complete Time: 12:17 [facility] 12/23 11:58 Order name: O2 Sat Monitoring; Complete Time: 12:17 [facility] EC:57 Rate is 59 beats/min. Rhythm is regular. QRS [place] is Normal. [place] interval is normal. QRS norberto interval is normal. QT interval is normal. No Q waves. T waves are Normal. Clinical impression: Normal ECG and No evidence of ischemia. Interpreted by me. Reviewed by me. Administered Medications: 14:07 Not Given (Patient Refused): Enoxaparin Sub-Q 1 mg/kg Sub-Q once mb9 14:07 Drug: Aspirin PO Chewable Tablet 162 mg Route: PO; mb9 16:29 Follow up: Response: No adverse reaction mb9 Disposition Summary: 12/23/22 14:35 Transfer Ordered Transfer Location: [facility] norberto Reason: Higher level of care norberto Condition: Stable(12/23/22 14:35) norberto Problem: new(12/23/22 14:35) norberto Symptoms: have improved(12/23/22 14:35) norberto Accepting Physician: va(12/23/22 19:26) mb9 Diagnosis - Unstable angina(12/23/22 14:35) norberto - Chest pain, unspecified(12/23/22 14:35) norberto - Essential (primary) hypertension(12/23/22 14:35) norberto - Hyperlipidemia, unspecified(12/23/22 14:35) norberto Forms: - Medication Reconciliation Form norberto - SBAR form norberto Signatures: Dispatcher [employer] EDJimmie Davidson MD MD cha Calderon, Audri RN RN aa5 Beatriz Johnson RN RN mb9 Corrections: (The following items were deleted from the chart) 11:59 11:58 Home Meds: None; aa5 aa5 14:34 14:08 Observation norberto norberto 14:34 14:08 ValorieJake norberto norberto 14:34 14:08 Telemetry/MedSurg (observation) norberto norberto 14:34 14:08 Stable norberto norberto 14:34 14:08 new norberto norberto 14:34 14:08 have improved norberto norberto 14:34 14:08 Standard norberto norberto 14:34 14:08 norberto norberto 14:34 14:08 Unstable angina norberto norberto 14:34 14:08 Chest pain, unspecified norberto norberto 14:34 14:08 Hyperlipidemia, unspecified norberto norberto 14:34 14:08 Essential (primary) hypertension norberto norberto 19:26 14:35 [facility] mb9
[2022-12-23] MEDS ORDERED: ENOXAPARIN 80 MG/0.8 ML SQ ONE (14:11)
[2022-12-23] MEDS ORDERED: ASPIRIN 81 MG CHEWABLE TABLET ONE (14:11)
[2022-12-23 19:38] VITALS: TEMP 98
[2022-12-23 19:48] VITALS: BP 155/84; O2SAT 97
--- NOTE | 2022-12-24 07:17 | EKG ---
Test Date: 2022-12-23 Test Time: 12:21:59 Art Teacher: MB MEASUREMENT RESULTS: Intervals: Rate: 59 OK: 170 QRSD: 88 QT: 412 QTc: 407 [place]: P: 51 OK: 170 QRS: 5 T: 29 INTERPRETIVE STATEMENTS: Sinus bradycardia Otherwise normal ECG Compared to ECG 08/11/2021 10:27:49 Sinus rhythm no longer present Electronically Signed On 12-24-22 07:14:11 CDT by Caleb Giraldo
== END 2022-12-23 19:26 ==
LOC: ER 11:47
DX: I20.0 Unstable angina (principal); I10 Essential (primary) hypertension; E78.5 Hyperlipidemia, unspecified
CPT/HCPCS: 36415; 71045; 80048; 80076; 83735; 83880; 84484; 85025; 85610; 93005; 99285